=== PATIENT | female | born 1980 | race Caucasian/White ===

== ENCOUNTER 2016-09-27 22:40 | Inpatient (IN) | payer MEDICAID ==
[~2016-09-27] VITALS: Ht 160 cm; Wt 85.7 kg
[~2016-09-27 22:40] MED LIST: ADVAIR DISKUS 11 DSK IH; ALBUTEROL SULFAT NEB; ALBUTEROL SULFAT3 M2 NEB; ASPIRIN81 M2 PO; ATROVENT 00.5 MG/3 M INH; CEFDINIR300 MG PO; CLARITIN10 MG PO; IPRATROPIUM 2.2.5 ML IH; LACTINEX1 TAB.CHEW PO; LEVAQUIN500 MG PO; LEVOFLOXACIN750 MG PO; LEXAPRO20 MG PO; MACROBID100 M1 PO; MEDROL4 M1 PO; MEDROL4 MG PO; PHENERGAN/CODEIN5 ML PO; PREDNISOLO15 MG/5 M3 PO; PREDNISOLON5 MG/5 ML PO; PREDNISONE10 M1 PO; PREDNISONE10 MG PO; PREDNISONE2.5 MG PO; PREDNISONE20 MG PO; PROAIR HFA0.09 MG/Ac IH; PROVENTIL2.5 MG/3 M INH; PULMICORT180 MCG/Ac IH; QVAR HFA M80 MCG/ACT IH; ROBITUSSIN20 MG/1 ML PO; SIMVASTATIN20 M1 PO; SINGULAIR10 MG PO; VENTOLIN H0.09 MG/Ac IH; ZITHROMAX Z PA250 MG PO; ZITHROMAX250 MG PO
--- NOTE | 2016-09-27 22:40 | NUR ---
[facility] TO ER BED 3
[2016-09-27] MEDS ORDERED: ALBUTEROL 0.083% 2.5 MG/3 ML NEBU INH ONE (22:45)
[2016-09-27] MEDS ORDERED: methylPREDNISolone SS 125 MG in WATER STERILE 2 ML IV ONE (22:45)
[2016-09-27] MEDS ORDERED: MAG SULF 2000 MG/WATER PREMIX 50 ML IV ONE (22:45)
[2016-09-27] MEDS ORDERED: NACL 0.9% 1,000 ML IV ONE (22:45)
[2016-09-27 22:48] VITALS: BP 104/55
--- NOTE | 2016-09-27 23:00 | NUR ---
Respiratory Therapist at bedside for respiratory intervention. Patient tolerated .
--- NOTE | 2016-09-27 23:00 | NUR ---
BIBA FOR SOB. HX OF ASTHMA. PAIN 7/10 PT DENIES N/V/D; SKIN IS PINK/WARM/DRY; AAOX4 WITH EVEN AND STEADY GAIT; HR EVEN AND REGULAR; PT DENIES ANY FEVER OR CP AT THIS TIME; PATIENT STATES PAIN OF 7/10 AT THIS TIME; VSS; PATIENT POSITIONED FOR COMFORT; HOB ELEVATED; BEDRAILS UP X2; BED DOWN. ER MD MADE AWARE OF PT STATUS.
[2016-09-27] MEDS ORDERED: AMPICILLIN/SULBACTAM 1.5 GM in NACL 0.9% 50 ML IV ONE (23:15)
[2016-09-27] MEDS ORDERED: AMPICILLIN/SULBACTAM 1.5 GM VIAL ONE (23:28)
[2016-09-28] MEDS ORDERED: IBUPROFEN 600 MG TAB PO ONE (00:05)
--- NOTE | 2016-09-28 00:37 | NUR ---
Respiratory Therapist at bedside for respiratory intervention. Patient tolerated .
[2016-09-28] MEDS: NACL 0.9% 1,000 ML IV SCH ×2 (01:04→07:31)
[2016-09-28] MEDS ORDERED: ACETAMINOPHEN 325 MG TAB PO PRN (01:05)
[2016-09-28] MEDS ORDERED: ZOLPIDEM 5 MG TAB PO PRN (01:05)
[2016-09-28] MEDS ORDERED: ALBUTEROL 0.083% 2.5 MG/3 ML NEBU IH PRN (01:05)
[2016-09-28] MEDS ORDERED: MORPHINE SULFATE 2 MG/ML SYR IVP PRN (01:05)
[2016-09-28] MEDS ORDERED: ONDANSETRON 4 MG/2 ML VIAL IVP PRN (01:05)
[2016-09-28] MEDS ORDERED: methylPREDNISolone SS 125 MG/2 ML VIAL IVP ONE (01:10)
[2016-09-28] MEDS ORDERED: AMPICILLIN/SULBACTAM 1.5 GM VIAL ONE (01:30)
[2016-09-28] MEDS ORDERED: methylPREDNISolone SS 125 MG/2 ML VIAL ONE (01:31)
--- NOTE | 2016-09-28 01:55 | NUR ---
Patient will be admitted to care of DR BENITES. Admited to TELE. Will go to ROOM 105A. Belongings list completed. Report to SAEED OBRIEN.
--- NOTE | 2016-09-28 02:17 | NUR ---
RECEIVED FROM ER PER TREVA AWAKE AND ALERT. WITH SLIGHT COUGHING. DX. OF COPD EXACERBATION. NO PAIN COMPLAINTS. TELEMETRY MONITORING. ABLE TO VERBALIZE NEEDS IN [place] AND A LITTLE OF PASHTO. CALL LIGHT WITH IN REACH AND CARE PLANS FOR THE NIGHT DISCUSSED WITH HER. AMBULATING WELL. ROM X 4. CLEAR SPEECH. AFEBRILE. SKIN INTACT. NO EDEMA . NOTED PT. STILL WITH SLIGHT WHEEZING. ON BREATHING TREATMENTS.
[2016-09-28 02:44] VITALS: BP 116/70
--- NOTE | 2016-09-28 02:49 | NUR ---
SOLUMEDROL IVP AND NS AT 100 ML GIVEN IN ER. PT. AT THIS TIME SLEEPING. AFEBRILE. O2 SAT AT 98 % ON 02 AT 2LPM/NC. CALL LIGHT WITH IN REACH.
[2016-09-28 04:08] VITALS: BP 114/68
--- NOTE | 2016-09-28 05:52 | NUR ---
PT. SLEEPING WELL THIS SHIFT. NO COMPLAINTS DONE. ON BREATHING TREATMENTS. CALL LIGHT WITH IN REACH. TELEMETRY MONITORING.
[2016-09-28] MEDS: ALBUTEROL 0.083% 2.5 MG/3 ML NEBU IH SCH ×3 (07:00→19:19)
--- NOTE | 2016-09-28 07:27 | NUR ---
ENDORSED TO THE NEXT RN FOR CONTINUITY OF CARE. NO SOB. NO RESTLESSNESS NOTED. TELEMETRY MONITORING.
--- NOTE | 2016-09-28 07:28 | NUR ---
PT AWAKE AND ALERT, NO SIGNS OF ACUTE DISTRESS, BREATHING EVEN AND UNLABORED BILATERALLY. ABDOMEN SOFT NON-TENDER WITH BOWEL SOUNDS ACTIVE IN ALL 4 QUADRANTS, BOWEL AND BLADDER CONTINENCE, AMBULATORY WITH BRP, IV PATENT WITH NO REDNESS, SKIN INTACT NO EDEMA, RE-ORIENTED PT TO UNIT AND HOSPITAL PT VERBALIZED UNDERSTANDING. BED IN LOW POSITION WITH BILATERAL HALF SIDE RAILS UP, CALL LIGHT WITHIN REACH.
[2016-09-28 08:00] VITALS: BP 117/70
[2016-09-28] MEDS ORDERED: methylPREDNISolone SS 80 MG in WATER STERILE 1 ML IV SCH (08:00)
[2016-09-28] MEDS: LORATADINE 10 MG TAB PO SCH (08:25)
[2016-09-28] MEDS: FAMOTIDINE 20 MG TAB PO SCH (08:25)
[2016-09-28] MEDS: methylPREDNISolone SS 125 MG/2 ML VIAL IVP SCH ×3 (08:26→23:15)
--- NOTE | 2016-09-28 08:46 | NUR ---
RECEIVED CRITICAL LAB VALUE FROM [facility] LACTIC ACID 2.7.
--- NOTE | 2016-09-28 09:01 | NUR ---
PATIENT HAS BEEN SCREENED AND CATEGORIZED LOW NUTRITION RISK. PATIENT WILL BE SEEN WITHIN 7 DAYS OF ADMISSION. 10/04/[address]
[2016-09-28] MEDS: LACTOBACILLUS RHAMNOSUS GG 1 EACH CAP PO SCH (09:29)
[2016-09-28] MEDS: LEVOFLOXACIN 500 MG/D5W PREMIX 100 ML IV SCH (09:29)
[2016-09-28] MEDS: HYDROcodone/APAP 5/325 MG 1 TAB TAB PO PRN (09:44)
--- NOTE | 2016-09-28 10:56 | NUR ---
NEW ORDER NOT ENDORSED FROM NOC SHIFT
[2016-09-28 11:45] VITALS: BP 131/94
--- NOTE | 2016-09-28 12:31 | NUR ---
RECEIVED CRITICAL LAB VALUE FROM [facility] LACTIC ACID 4.1.
[2016-09-28] MEDS ORDERED: PIPER/TAZO 3.375GM/D5W PREMIX 50 ML IV SCH (13:00)
--- NOTE | 2016-09-28 13:33 | NUR ---
Social Service Note: Per patient's request I call [facility] pharmacy and inquired information about nebulizer, I was informed they currently do not have home nebulizers, ash for nebulizer was over $60 and if ordered today nebulizer would be delivered to their store on Saturday10/01/16, patient would have to olive picker nebulizer from [facility]. I called and spoke with Clarence Ulloa from [employer], he stated cameron ash for nebulizer is $50 and they could deliver it at patient's home. Per Clarence patient could call him and speak with him directly. I met with patient and informed her, she stated she would contact Clarence (Hong Konger speaking) and discuss payment options. I also provided patient with a list of dmes companies.
--- NOTE | 2016-09-28 15:02 | NUR ---
SPOKE WITH DR CALLAWAY REGARDING PT C/O TINGLING IN HANDS AND TIGHTENING IN LOWER STOMACH. PER DR CALLAWAY WILL PUT IN NEW ORDERS FOR ATIVAN, WILL CARRY OUT.
[2016-09-28] MEDS ORDERED: LORazepam 2 MG/ML VIAL IVP PRN ×2 (15:05→19:25)
[2016-09-28 16:00] VITALS: BP 119/79
--- NOTE | 2016-09-28 19:16 | NUR ---
PT AWAKE AND ALERT, NO SIGNS OF ACUTE DISTRESS. GAVE REPORT TO SAEED OBRIEN, UNIX MANAGER NURSE FOR CONTINUITY OF CARE.
--- NOTE | 2016-09-28 19:25 | NUR ---
RECEIVED FROM AM RN AWAKE AND ALERT. WITH SLIGHT COUGHING. DX. OF COPD EXACERBATION. NO PAIN COMPLAINTS. TELEMETRY MONITORING. ABLE TO VERBALIZE NEEDS IN ANGUILLAN AND A LITTLE OF LEBANESE. CALL LIGHT WITH IN REACH AND CARE PLANS FOR THE NIGHT DISCUSSED WITH HER. AMBULATING WELL. ROM X 4. CLEAR SPEECH. AFEBRILE. SKIN INTACT. NO EDEMA . NOTED PT. STILL WITH SLIGHT WHEEZING. ON BREATHING TREATMENTS. PT. WITH VISITORS AT THIS TIME. GOOD AFFECT. SMILING. DENIES PAIN AT THIS TIME.
[2016-09-28 19:33] VITALS: BP 118/76
[2016-09-28] MEDS: MONTELUKAST SODIUM 10 MG TAB PO SCH (20:10)
--- NOTE | 2016-09-28 20:12 | NUR ---
PT. AWAKE AND DRANK MEDICATION WELL WITH OUT ANY COMPLAINTS. TOLERATED WELL. CALL LIGHT WITH IN REACH. RE-ORIENTED TO CALL LIGHT USE. NO SOB AT THIS TIME. STILL ON 02 AT 2LPM/NC. A/O X 4. ROM X 4.
[2016-09-29] VITALS: BP 119/79
--- NOTE | 2016-09-29 01:33 | NUR ---
PT. SLEEPING AT THIS TIME. NO RESTLESSNESS NOTED. TELEMETRY MONITORING. CALL LIGHT WITH IN REACH AT ALL TIMES.
[2016-09-29] MEDS: NACL 0.9% 1,000 ML IV SCH ×2 (02:04→14:34)
[2016-09-29] MEDS: ALBUTEROL 0.083% 2.5 MG/3 ML NEBU IH SCH ×4 (02:04→19:56)
--- NOTE | 2016-09-29 04:49 | NUR ---
PT. SLEEPING WELL THIS SHIFT. NO COMPLAINTS OF SOB. BREATHING TREATMENTS STILL ON GOING ORDERED. TELEMETRY MONITORING. ABLE TO USE CALL LIGHT FOR HELP.
[2016-09-29 05:10] VITALS: BP 114/72
--- NOTE | 2016-09-29 07:28 | NUR ---
ENDORSED TO THE NEXT RN FOR CONTINUITY OF CARE. AWAKE AND ALERT. NO COMPLAINTS DONE. TELEMETRY MONITORING.
--- NOTE | 2016-09-29 07:30 | NUR ---
REPORT RECEIVED FROM IT SOFTWARE DEVELOPER, PT SLEEPING QUIETLY, RESP EVEN UNLABORED ON ROOM AIR IN NAD, AROUSES EASILY BY VOICE, PLAN OF CARE DISCUSSED, NO IMMEDIATE NEEDS NOTED AT THIS TIME, CALL BOWERS WITHIN REACH, SIDE RAILS UP X2, WILL CONTINUE TO MONITOR.
[2016-09-29 08:00] VITALS: BP 113/59
[2016-09-29] MEDS ORDERED: methylPREDNISolone SS 40 MG in WATER STERILE 1 ML IV SCH (08:00)
[2016-09-29] MEDS: methylPREDNISolone SS 40 MG/ML VIAL IVP SCH ×2 (08:02→15:30)
[2016-09-29] MEDS: LACTOBACILLUS RHAMNOSUS GG 1 EACH CAP PO SCH (08:03)
[2016-09-29] MEDS: LORATADINE 10 MG TAB PO SCH (08:03)
[2016-09-29] MEDS: FAMOTIDINE 20 MG TAB PO SCH (08:03)
[2016-09-29] MEDS: LEVOFLOXACIN 500 MG/D5W PREMIX 100 ML IV SCH (08:03)
--- NOTE | 2016-09-29 09:45 | NUR ---
CLEAN CATCH URINE COLLECTED, SENT TO LAB FOR UA. PT SITTING UP IN BED TALKING ON THE PHONE, RESP EVEN UNLABORED ON 1.5L NC O2, CALL BOWERS WITHIN REACH, SIDE RAILS UP, IVF INFUSING, SITE CLEAR, WILL CONTINUE TO MONITOR.
[2016-09-29] MEDS ORDERED: LORazepam 2 MG/ML VIAL IVP PRN (10:50)
[2016-09-29] MEDS ORDERED: MORPHINE SULFATE 2 MG/ML SYR IVP PRN (11:20)
[2016-09-29 12:00] VITALS: BP 124/73
--- NOTE | 2016-09-29 12:00 | NUR ---
PT SITTING UP IN BED TALKING ON THE PHONE IN NAD, RESP EVEN UNLABORED ON 1.5L NC O2, VITALS STABLE DOCUMENTED, PT DENIES ANY IMMEDIATE NEEDS, LUNCH AT BEDSIDE, CALL BOWERS WITHIN REACH, SIDE RAILS UP X2, BED LOCKED IN LOW POSITION, WILL CONTINUE TO MONITOR.
--- NOTE | 2016-09-29 15:41 | NUR ---
PT SITTING UP IN BED TALKING ON THE PHONE IN NAD, RESP EVEN UNLABORED ON 1.5L O2 NC , SCHEDULED SOLUMED GIVEN IVP, IV SITE CLEAR, IVF CONTINUES TO INFUSE, PT REMAINS ON SENIOR CENTER MANAGER, CALL BOWERS WITHIN REACH, SIDE RAILS UP, BED LOCKED IN LOW POSITION, WILL CONTINUE TO MONITOR.
[2016-09-29 16:00] VITALS: BP 124/82
--- NOTE | 2016-09-29 18:02 | NUR ---
PT SITTING UP IN BED TALKING TO VISITOR, PT WITH UNLABORED RESP EVEN, + FAINT END EXP WZ BILAT, DENIES ANY IMMEDIATE NEEDS, PT REMAINS ON MINE PROMOTOR, CALL BOWERS WITHIN REACH, BED LOCKED IN LOW POSITION, SIDE RAIL UP X2, WILL CONTINUE TO MONITOR.
--- NOTE | 2016-09-29 19:26 | NUR ---
REPORT GIVEN TO YARITZA WILSON RN, PT IN STABLE CONDITION.
[2016-09-29 20:00] VITALS: BP 134/78
--- NOTE | 2016-09-29 20:00 | NUR ---
RECEIVED FROM CHARGE NURSE REPORT . PT. ON BREATHING TREATMENT AT THIS TIME. CALL LIGHT WITH IN REACH. O2 SAT AT 97 % WITH 02 AT 2LPM/NC. DX. OF EXACERBATION COPD.IVF SITE TO LAC LEAKING. DISCONTINUED. TIP INTACT. WILL INSERT A NEW LINE. A/O X 4.
[2016-09-29] MEDS: MONTELUKAST SODIUM 10 MG TAB PO SCH (20:28)
--- NOTE | 2016-09-29 21:21 | NUR ---
SLEEPING AT THIS TIME.
[2016-09-29] MEDS: HYDROcodone/APAP 5/325 MG 1 TAB TAB PO PRN (22:29)
--- NOTE | 2016-09-29 22:30 | NUR ---
PT. WITH NEW IVF LINE INSERTED TO LEFT HAND #22 . TOLERATED WELL. GOOD BLOOD RETURN. COMPLAINED OF HEADACHE AND ALMOST READY TO CRY HOLDING ON TO FOREHEAD. REQUESTED FOR PAIN RELIEVER. MEDICATED WITH NORCO P.O.
[2016-09-30] MEDS: methylPREDNISolone SS 40 MG/ML VIAL IVP SCH (00:01)
--- NOTE | 2016-09-30 00:12 | NUR ---
SLEEPING AT THIS TIME. CALL LIGHT WITH IN REACH.
[2016-09-30] MEDS: ALBUTEROL 0.083% 2.5 MG/3 ML NEBU IH SCH ×4 (00:29→18:50)
[2016-09-30 00:47] VITALS: BP 126/72
--- NOTE | 2016-09-30 02:00 | NUR ---
SLEEPING. NO RESTLESSNESS. CALL LIGHT AT BEDSIDE. TELEMETRY MONITORING.
[2016-09-30] MEDS: NACL 0.9% 1,000 ML IV SCH ×2 (03:38→15:04)
[2016-09-30 04:40] VITALS: BP 128/74
--- NOTE | 2016-09-30 05:36 | NUR ---
PT. BEEN SLEEPING WELL THIS SHIFT. NO COMPLAINTS DONE. A/O X4.
--- NOTE | 2016-09-30 07:20 | NUR ---
REPORT RECIEVED FROM UPSCALE SECURITY OFFICER, PT SLEEPING QUIETLY, RESP EVEN UNLABORED ON 1.5L NC O2 IN NAD, AROUSES EASILY BY VOICE, PLAN OF CARE DISCUSSED, PT DENIES PAIN OR OTHER CONCERNS, CALL BOWERS WITHIN REACH, SIDE RAILS UP X2, WILL CONTINUE TO MONITOR.
[2016-09-30 08:00] VITALS: BP 113/53
[2016-09-30] MEDS: FAMOTIDINE 20 MG TAB PO SCH (08:02)
[2016-09-30] MEDS: LEVOFLOXACIN 500 MG/D5W PREMIX 100 ML IV SCH (08:02)
[2016-09-30] MEDS: LACTOBACILLUS RHAMNOSUS GG 1 EACH CAP PO SCH (08:02)
[2016-09-30] MEDS: LORATADINE 10 MG TAB PO SCH (08:03)
--- NOTE | 2016-09-30 10:55 | NUR ---
PT RESTING QUIETLY IN NAD, RESP EVEN UNLABORED, REMAINS ON 1.5L NC, OCCASIONAL COUGHS NOTED, [facility], GANG INVESTIGATOR REMOVED AT THIS TIME. CALL BOWERS WITHIN REACH, SIDE RAILS UP, BED LOCKED IN LOW POSITION, WILL CONTINUE TO MONITOR.
[2016-09-30 11:53] VITALS: BP 131/82
--- NOTE | 2016-09-30 12:30 | NUR ---
PT RESTING QUIETLY TALKING ON THE PHONE, RESP EVEN UNLABORED IN NAD, PT DENIES ANY IMMEDIATE NEEDS, DENIES PAIN OR DISCOMFORT, CALL BOWERS WITHIN REACH, BED LOCKED IN LOW POSITION, SIDE RAILS UPX2, WILL CONTINUE TO MONITOR.
[2016-09-30 16:00] VITALS: BP 118/79
--- NOTE | 2016-09-30 16:03 | NUR ---
FAMILY VISITING, PT TALKING WITH THEM IN NAD, IVF CONTINUE TO INFUSE, SITE CLEAR, PT DENIES ANY IMMEDIATE NEEDS, CALL BOWERS WITHIN REACH, WILL CONTINUE TO MONITOR.
--- NOTE | 2016-09-30 19:05 | NUR ---
PATIENT ON ROOM AIR SAO2-96% HR-78 NO SIGNS OF RESP. DISTRESS NOTED
--- NOTE | 2016-09-30 19:25 | NUR ---
REPORT GIVEN TO AUTO HEADLIGHT MECHANIC, PT IN STABLE CONDITION.
--- NOTE | 2016-09-30 19:30 | NUR ---
RECEIVED REPORT FROM AM NURSE. PT RESTING IN BED. AOX4, ABLE TO VERBALIZE NEEDS. PT DENIES CHEST PAIN OR SOB, NO S/S OF ACUTE DISTRESS. WHEEZING NOTED, O2 SAT 97%, RR 18, NONLABORED, NO S/S OF ACUTE RESPIRATORY DISTRESS. ASKED PT IF SHE WANTED A BREATHING TX, PT REFUSED. WILL CONTINUE TO MONITOR AND ASK AGAIN LATER. IV ACCESS ASYMPTOMATIC, PATENT AND INTACT. IVF INFUSING WELL. DISCUSSED AND REVIEWED PLAN OF CARE WITH PT. PT VERBALIZES UNDERSTANDING. SAFETY MEASURES ENSURED. CALL LIGHT WITHIN REACH. WILL CONTINUE TO MONITOR.
[2016-09-30] MEDS: MONTELUKAST SODIUM 10 MG TAB PO SCH (21:57)
--- NOTE | 2016-09-30 21:58 | NUR ---
DUE MEDICATION ADMINISTERED ORDERED. PT VERBALIZES UNDERSTANDING. PT TOLERATED MED WELL. PT DENIES PAIN OR SOB, PT REFUSED BREATHING TX, O2 SAT 97%, RR 18, CONDITION STABLE. SAFETY MEASURES ENSURED. CALL LIGHT WITHIN REACH. WILL CONTINUE TO MONITOR.
[2016-10-01] VITALS: BP 112/72
--- NOTE | 2016-10-01 | NUR ---
PT SLEEPING. CONDITION STABLE. SAFETY MEASURES ENSURED. CALL LIGHT WITHIN REACH. WILL CONTINUE TO MONITOR.
[2016-10-01] MEDS: ALBUTEROL 0.083% 2.5 MG/3 ML NEBU IH SCH ×3 (00:32→13:00)
--- NOTE | 2016-10-01 03:39 | NUR ---
PT SLEEPING. CONDITION STABLE. SAFETY MEASURES ENSURED. CALL LIGHT WITHIN REACH. WILL CONTINUE TO MONITOR.
[2016-10-01] MEDS: NACL 0.9% 1,000 ML IV SCH (04:08)
--- NOTE | 2016-10-01 07:21 | NUR ---
ENDORSED PLAN OF CARE TO AM NURSE. CONDITION STABLE.
--- NOTE | 2016-10-01 07:22 | NUR ---
REPORT RECEIVED FROM BLOW PIT HELPER, PT AWAKE ALERT, RESP EVEN UNLABORED ON ROOM AIR, + EXP WZ THROUGHOUT, SPEAKS CLEARLY IN NAD, + OCCASIONAL COUGHS, PLAN OF CARE DISCUSSED, PT DENIES PAIN OR DISCOMFORT, UP OUT OF BED AMBULATES TO BATHROOM WITH STEADY GAIT WITHOUT ASSIST, CALL BOWERS WITHIN REACH, SIDE RAILS UP, BED LOCKED IN LOW POSITION, WILL CONTINUE TO MONITOR.
[2016-10-01 08:00] VITALS: BP 121/78
[2016-10-01] MEDS: LACTOBACILLUS RHAMNOSUS GG 1 EACH CAP PO SCH (08:17)
[2016-10-01] MEDS: FAMOTIDINE 20 MG TAB PO SCH (08:17)
[2016-10-01] MEDS: LORATADINE 10 MG TAB PO SCH (08:17)
[2016-10-01] MEDS: LEVOFLOXACIN 500 MG/D5W PREMIX 100 ML IV SCH (08:17)
[2016-10-01] MEDS ORDERED: LEVAQUIN500 M1 PO (12:12)
[2016-10-01] MEDS ORDERED: BD LACTINEX1.4 MG PO (12:12)
[2016-10-01 12:42] VITALS: BP 143/81
--- NOTE | 2016-10-01 13:30 | NUR ---
PT REFUSED BREATHING TX NO SIGNS OF DISTRESS NOTED PT WAS GETTING UP TO GO WALKING
[2016-10-01 14:00] VITALS: BP 133/81
--- NOTE | 2016-10-01 14:00 | NUR ---
DISCHARGE INSTRUCTION GIVEN AND EXPLAINED TO PT VIA PHONE EXCELSIOR MACHINE TENDER #[id number], ALL QUESTIONS ASKED AND ANSWERED, PT VERBALIZED FULL UNDERSTANDING, ALBUTEROL INHALER RX ADDED BY DR CALLAWAY PER PT'S REQUEST, IV DC'D CATH TIP INTACT, BLEEDING CONTROLLED, PT UP AMBULATING WELL WITHOUT PROBLEM, AWAITING FAMILY TO PICK HER UP.
[2016-10-01] MEDS ORDERED: VENTOLIN H0.09 MG/Ac IH (14:16)
--- NOTE | 2016-10-01 14:25 | NUR ---
FAMILY HERE TO TAKE HER HOME, PT ESCORTED OUT IN WHEEL CHAIR. DC HOME NOW.
== END 2016-10-01 14:25 | disposition home or self-care (01) | DRG 140 ==
LOC: MED 22:40 → MTU 09-28 00:51
PROVIDERS: ADMIT Family Medicine; ATTEND Family Medicine
DX: J44.0 Chronic obstructive pulmonary disease with (acute) lower respiratory infection (principal); N17.0 Acute kidney failure with tubular necrosis; J96.90 Respiratory failure, unspecified, unspecified whether with hypoxia or hypercapnia; J45.901 Unspecified asthma with (acute) exacerbation; E44.1 Mild protein-calorie malnutrition; N39.0 Urinary tract infection, site not specified; E83.51 Hypocalcemia; J44.1 Chronic obstructive pulmonary disease with (acute) exacerbation; E78.1 Pure hyperglyceridemia; E66.9 Obesity, unspecified; J20.9 Acute bronchitis, unspecified; J30.9 Allergic rhinitis, unspecified; R73.9 Hyperglycemia, unspecified; I25.10 Atherosclerotic heart disease of native coronary artery without angina pectoris; Z53.29 Procedure and treatment not carried out because of patient's decision for other reasons; T38.0X5A Adverse effect of glucocorticoids and synthetic analogues, initial encounter; Z79.899 Other long term (current) drug therapy; Z79.82 Long term (current) use of aspirin; Z68.33 Body mass index [BMI] 33.0-33.9, adult; Z82.5 Family history of asthma and other chronic lower respiratory diseases; Z80.8 Family history of malignant neoplasm of other organs or systems

== ENCOUNTER 2017-05-10 17:27 | Inpatient (IN) | payer MEDICAID ==
[~2017-05-10] VITALS: Ht 157.5 cm; Wt 86.6 kg
[~2017-05-10 17:27] MED LIST changes: -ADVAIR DISKUS 11 DSK IH; +ALBU-136 IH; +ALBU-71 NEB; +ALBU0.0912 IH; +ALBU0.5S1 NEB; -ALBUTEROL SULFAT NEB; -ALBUTEROL SULFAT3 M2 NEB; -ASPIRIN81 M2 PO; -ATROVENT 00.5 MG/3 M INH; -CEFDINIR300 MG PO; -CLARITIN10 MG PO; -IPRATROPIUM 2.2.5 ML IH; +LACT1.4C PO; -LACTINEX1 TAB.CHEW PO; -LEVAQUIN500 MG PO; +LEVO500T2 PO; -LEVOFLOXACIN750 MG PO; -LEXAPRO20 MG PO; -MACROBID100 M1 PO; -MEDROL4 M1 PO; -MEDROL4 MG PO; +MONT10TA35 PO; -PHENERGAN/CODEIN5 ML PO; -PREDNISOLO15 MG/5 M3 PO; -PREDNISOLON5 MG/5 ML PO; -PREDNISONE10 M1 PO; -PREDNISONE10 MG PO; -PREDNISONE2.5 MG PO; -PREDNISONE20 MG PO; -PROAIR HFA0.09 MG/Ac IH; -PROVENTIL2.5 MG/3 M INH; -PULMICORT180 MCG/Ac IH; -QVAR HFA M80 MCG/ACT IH; -ROBITUSSIN20 MG/1 ML PO; -SIMVASTATIN20 M1 PO; -SINGULAIR10 MG PO; -VENTOLIN H0.09 MG/Ac IH; -ZITHROMAX Z PA250 MG PO; -ZITHROMAX250 MG PO
--- NOTE | 2017-05-10 17:27 | NUR ---
Patient BIBA to bed 1 at this time.
[2017-05-10] MEDS ORDERED: DEXAMETHASONE 10 MG/ML VIAL IVP ONE (17:30)
[2017-05-10 17:35] VITALS: BP 147/95
[2017-05-10] MEDS ORDERED: ALBUTEROL SULFATE/IPRATROPIU 3 ML SOL IH ONE (17:35)
[2017-05-10] MEDS ORDERED: MAG SULF 2000 MG/WATER PREMIX 50 ML IV ONE ×2 (17:35→17:46)
[2017-05-10] MEDS ORDERED: DEXAMETHASONE 4 MG/ML VIAL ONE ×2 (17:46→17:51)
[2017-05-10] MEDS ORDERED: methylPREDNISolone SS 125 MG/2 ML VIAL ONE (17:46)
[2017-05-10 17:49] LABS: HEMATOCRIT 45.2 % (36-48); HEMOGLOBIN 14.8 g/dL (12.0-16.0); MEAN CORPUSCULAR HEMOGLOBIN 25 pg (27-31); MEAN CORPUSCULAR HGB CONC 33 g/dL (33-37); MEAN CORPUSCULAR VOLUME 76 fL (80-94); PLATELET COUNT (AUTO) 360 K/uL (140-450); RED BLOOD CELL COUNT(AUTO) 5.93 MIL/uL (4.20-5.40); RED CELL DISTRIBUTION WIDTH 14.4 % (11.6-13.7); WHITE BLOOD COUNT (AUTO) 21.1 K/uL (4.8-10.8)
[2017-05-10 17:51] VITALS: BP 170/100
--- NOTE | 2017-05-10 17:54 | NUR ---
RECIVED PT FROM EMT ON THEIR BIPAP CHANGED PT TO OUR BIPAP [place] V60 1144 ON SETTINGS CHARTED BREATH SOUNDS PRESENT BILAT WHEEZES PT SEEMS TO BE BERNIE OK AT THIS TIME
--- NOTE | 2017-05-10 18:11 | NUR ---
XRAY AT BEDSIDE.
[2017-05-10 18:16] LABS: ANION GAP 11.6 (8-16); CARBON DIOXIDE 28.5 mmol/L (21-32); CREATININE 0.8 mg/dL (0.6-1.3); POTASSIUM 4.1 mmol/L (3.5-5.1)
[2017-05-10 18:17] LABS: EOSINOPHILS % (MANUAL) 8 % (0-4); LYMPHOCYTES % (MANUAL) 28 % (20-46); MONOCYTES % (MANUAL) 6 % (5-12)
[2017-05-10 18:25] VITALS: BP 156/109
[2017-05-10 18:33] LABS: ALBUMIN 3.6 g/dL (3.4-5.0); MAGNESIUM 1.9 mg/dL (1.8-2.4); THYROID STIMULATING HORMONE 1.69 uIU/mL (0.34-3.74); TOTAL BILIRUBIN 0.5 mg/dL (0.0-1.0)
--- NOTE | 2017-05-10 18:35 | NUR ---
ekg done reviewed by orin
--- NOTE | 2017-05-10 18:49 | NUR ---
PT SWABBED FOR FLU. ABG COLLECTED BY RT.
[2017-05-10] MEDS ORDERED: LEVOFLOXACIN 750 MG/D5W PREMIX 150 ML IV SCH (18:55)
--- NOTE | 2017-05-10 19:04 | NUR ---
LAB AT BEDSIDE.
--- NOTE | 2017-05-10 19:32 | NUR ---
Pt found in bed on BiPap tolerating it well. Pt resting in semi fower's. Report recieved from Teto TIPTON. Pt is pending admission.
--- NOTE | 2017-05-10 19:54 | NUR ---
Pt taken off the bipap to provide her was sip of water.
[2017-05-10] MEDS ORDERED: NACL 0.9% 1,000 ML IV ONE (20:00)
--- NOTE | 2017-05-10 20:17 | NUR ---
IV to right forearm removed. Pt c/o severe pain with flushing IV. IV removed, catheter intact and site benign. Applied folded 4x4 gauze and tape to stop bleeding.
[2017-05-10] MEDS ORDERED: KETOROLAC 30 MG/ML VIAL IVP ONE (20:25)
--- NOTE | 2017-05-10 21:05 | NUR ---
PT TRANSFERRED TO 112-A WITH NO INCIDENCE WITH LASHAUN TIPTON
[2017-05-10 21:10] VITALS: BP 146/93
--- NOTE | 2017-05-10 21:10 | NUR ---
RECEIVED PT FROM ER VIA MATHEW. PT IN STABLE CONDITION. NO S/S OF DISTRESS. PT AAOX4, IV TO THE L HAND 20 G PATENT AND INTACT. SKIN IN TACT. PT BEING PUT ON BI-PAP DUE TO SOB, PT SOB AFTER AMBULATING TO THE BATHROOM. INITIAL ASSESSMENT COMPLETED. PLAN OF CARE DISCUSSED WITH PT, PT VERBALIZED UNDERSTANDING. ALL SAFETY PRECAUTIONS MET, CALL LIGHT WITHIN REACH, WILL CONTINUE TO MONITOR
[2017-05-10] MEDS ORDERED: NON-FORMULARY ITEM (Albuterol Sulfate Hfa* (Proair Hfa*) 2 PUFF) IH SCH (22:20)
[2017-05-10] MEDS ORDERED: ALBUTEROL HFA MDI 90 MCG/ACTUATION 8 GM INH PRN (22:20)
[2017-05-10] MEDS: DEXT 5% /NACL 0.9% 1,000 ML IV SCH (22:20)
[2017-05-10] MEDS ORDERED: ONDANSETRON 4 MG/2 ML VIAL IVP PRN (22:20)
[2017-05-10] MEDS ORDERED: ACETAMINOPHEN 325 MG TAB PO PRN (22:20)
[2017-05-10] MEDS ORDERED: IPRATROPIUM 0.02% 0.5 MG/2.5 ML NEBU INH PRN (22:20)
[2017-05-10] MEDS ORDERED: HYDROcodone/APAP 5/325 MG 1 TAB TAB PO PRN (22:20)
[2017-05-10] MEDS ORDERED: ALBUTEROL SULFATE/IPRATROPIU 3 ML SOL IH PRN (23:10)
[2017-05-10] MEDS ORDERED: ALBUTEROL SULFATE/IPRATROPIU 3 ML SOL IH SCH (23:10)
[2017-05-10 23:25] LABS: APPEARANCE,URINE CLOUDY (CLEAR); BILIRUBIN,URINE NEGATIVE (NEGATIVE); BLOOD, URINE 3+ (NEGATIVE); LEUKOCYTE ESTERASE ,URINE NEGATIVE (NEGATIVE); NITRITE, URINE NEGATIVE (NEGATIVE); PH,URINE 5.5 (5.0-9.0); UGLUCOSE TRACE (NEGATIVE)
[2017-05-10 23:38] LABS: COLOR,URINE SLIGHT BLOODY (YELLOW)
[2017-05-10 23:39] LABS: RBC,URINE TOO NUMEROUS TO COUN /HPF (0-5); WBC,URINE 0-5 (RARE) /HPF (0-5)
[2017-05-11] VITALS: BP 144/72
[2017-05-11] MEDS ORDERED: ALBUTEROL SULFATE NEB SCH
[2017-05-11] MEDS: ALBUTEROL SULFATE/IPRATROPIU 3 ML SOL IH SCH ×6 (03:22→23:45)
[2017-05-11 04:00] VITALS: BP 126/62
--- NOTE | 2017-05-11 06:35 | NUR ---
REC'D PT ON [facility] V60 BIPAP SETTINGS 10/5 RR 10 FIO2 28% ALARMS ON AND FUNCTIONING PROPERLY, AMBU BAG AT SIDE OF BIPAP AND BIPAP IS PLUGGED INTO RED OUTLET, I\L TX GIVEN WITH DUONEB 3ML WITH NO ADVERSE REACTION POST TX B\S ARE DIMINISHED BILATERALLY, AND PT IS WEARING MED FACE MASK AND SKIN INTEGRITY IS INTACT, PT SLEEPING
--- NOTE | 2017-05-11 07:30 | NUR ---
RECEIVED PT FROM BIOGEOGRAPHER RN. PT IN STABLE CONDITION. NO S/S OF DISTRESS. PT AAOX4, IV TO THE L HAND 20 G PATENT AND INTACT. SKIN INTACT. PT ON BI-PAP DUE TO SOB, PLAN OF CARE DISCUSSED WITH PT, PT VERBALIZED UNDERSTANDING. ALL SAFETY PRECAUTIONS MET, CALL LIGHT WITHIN REACH, WILL CONTINUE TO MONITOR
--- NOTE | 2017-05-11 07:30 | NUR ---
RECEIVED HANDOFF REPORT FROM CLINICAL PHARMACY SPECIALIST RN. PATIENT AA&OX4. PT DENIES PAIN. PT IS ON 2 L BIPAP. IV SITE NOTED TO THE RIGHT HAND, PATENT AND INTACT. NO SIGNS OR SYMPTOMS OF ACUTE DISTRESS NOTED. CALL LIGHT WITHIN REACH. WILL CONTINUE TO MONITOR.
--- NOTE | 2017-05-11 07:35 | NUR ---
REPORT GIVEN TO LAURA TIPTON FOR CONTINUITY OF CARE, PT IN STABLE CONDITION. NO S/S OF DISTRESS NOTED
[2017-05-11 08:00] VITALS: BP 120/74
[2017-05-11] MEDS ORDERED: ACIDOPHILUS PO SCH (08:00)
[2017-05-11] MEDS ORDERED: BULGARICUS PO SCH (08:00)
[2017-05-11] MEDS: DEXT 5% /NACL 0.9% 1,000 ML IV SCH ×2 (08:20→18:20)
[2017-05-11] MEDS ORDERED: LACTOBACILLUS RHAMNOSUS GG 1 EACH CAP PO SCH (09:00)
--- NOTE | 2017-05-11 09:07 | NUR ---
pt wants bipap left on 2l n/c on at bedside
[2017-05-11] MEDS: MONTELUKAST SODIUM 10 MG TAB PO SCH (09:30)
[2017-05-11] MEDS: methylPREDNISolone SS 40 MG/ML VIAL IVP SCH ×2 (09:30→20:29)
--- NOTE | 2017-05-11 09:41 | NUR ---
PATIENT HAS BEEN SCREENED AND CATEGORIZED LOW NUTRITION RISK. PATIENT WILL BE SEEN WITHIN 7 DAYS OF ADMISSION. 05/17/[address]
--- NOTE | 2017-05-11 09:45 | NUR ---
bipap check, no signs of distress noted at this time
--- NOTE | 2017-05-11 10:55 | NUR ---
BIPAP CHECK, PT SLEEPING WITH NO SIGNS OF DISTRESS NOTED I\L TX GIVEN WITH DUONEB 3ML WITH NO ADVERSE REACTION POST TX
[2017-05-11 12:00] VITALS: BP 124/74
[2017-05-11] MEDS: LACTOBACILLUS RHAMNOSUS GG 1 EACH CAP PO SCH ×2 (12:58→17:44)
--- NOTE | 2017-05-11 13:21 | NUR ---
PT OFF BIPAP TO EAT
--- NOTE | 2017-05-11 13:50 | NUR ---
PUT PT ON 2 L NC. PT O2 SAT IS 98%. NO S/S OF SOB.
--- NOTE | 2017-05-11 15:03 | NUR ---
PAGED DR. STEPHENS WHO IS COVERING DR COLEMAN FOR ID CONSULT.
[2017-05-11 16:00] VITALS: BP 134/73
--- NOTE | 2017-05-11 19:22 | NUR ---
RECEIVED HANDOFF REPORT FROM AM RN. PATIENT A&OX4. PATIENT DENIES PAIN. PATIENT DENIES SOB. PATIENT HAS 2L O2 NASAL CANNULA IN PLACE. IV SITE PATENT AND INTACT. NO SIGNS OR SYMPTOMS OF ACUTE DISTRESS NOTED. CALL LIGHT WITHIN REACH. WILL CONTINUE TO MONITOR.
--- NOTE | 2017-05-11 19:30 | NUR ---
ENDORSED PT TO VOLTAGE REGULATOR ASSEMBLER RN. PT IN STABLE CONDITION.
--- NOTE | 2017-05-11 19:55 | NUR ---
PATIENT OUT OF ROOM AT THIS TIME PETROLEUM PRODUCTION ENGINEER TO ATTEMPT HHN THERAPY AT A LATER TIME
[2017-05-11 20:00] VITALS: BP 109/69
--- NOTE | 2017-05-11 20:01 | NUR ---
[facility] V60 BIPAP TO MASK AT BEDSIDE
[2017-05-11] MEDS: LEVOFLOXACIN 500 MG/D5W PREMIX 100 ML IV SCH (20:28)
--- NOTE | 2017-05-11 20:30 | NUR ---
PM MEDS GIVEN WITH EDUCATION. PATIENT VERBALIZED UNDERSTANDING. NO SIGNS OR SYMPTOMS OF ACUTE DISTRESS NOTED. CALL LIGHT WITHIN REACH. WILL CONTINUE TO MONITOR.
[2017-05-11] MEDS ORDERED: VANCOMYCIN PER PHARMACY MC PRN ×2 (23:55)
[2017-05-11] MEDS ORDERED: VANCOMYCIN 1GM/DEXT 5% PREMIX 200 ML IV SCH (23:55)
[2017-05-12] VITALS: BP 115/71
--- NOTE | 2017-05-12 00:10 | NUR ---
2350 PLACED PT ON BIPAP. IPAP10 EPAP 5 RR10 FIO2 28%. PT HAS A VERY STRONG COUGH. HHNTX GIVEN
[2017-05-12] MEDS ORDERED: VANCOMYCIN 1,000 MG VIAL ONE (00:45)
[2017-05-12] MEDS: ALBUTEROL SULFATE/IPRATROPIU 3 ML SOL IH SCH ×6 (03:00→23:26)
--- NOTE | 2017-05-12 03:01 | NUR ---
LOC ASLEEP NO APPARENT SOB NOTED HHN THERPY NOT GIVEN AT THIS TIME SATURATION 97% ON 2 LPM VIA NC HR 86 RR 16 CONSTRUCTION PROJECT MANAGER TO MONITOR
[2017-05-12 04:00] VITALS: BP 108/67
[2017-05-12] MEDS: DEXT 5% /NACL 0.9% 1,000 ML IV SCH ×2 (04:20→14:20)
--- NOTE | 2017-05-12 07:17 | NUR ---
ENDORSED PLAN OF CARE TO AM RN. PATIENT IN STABLE CONDITION.
--- NOTE | 2017-05-12 07:30 | NUR ---
RECEIVED PT FROM PRICING/SIGNAGE TEAM MEMBER RN. PT IN STABLE CONDITION. NO S/S OF DISTRESS. PT AAOX4, IV TO THE L HAND 20 G PATENT AND INTACT. SKIN INTACT. PT ON 2L O2 NC. ACCORDING TO PT, SHE DID NOT USE BI PAP LAST NIGHT, SHE JUST HAVE 2L O2 NC. PLAN OF CARE DISCUSSED WITH PT, PT VERBALIZED UNDERSTANDING. ALL SAFETY PRECAUTIONS MET, CALL LIGHT WITHIN REACH, WILL CONTINUE TO MONITOR
[2017-05-12 07:47] LABS: HEMATOCRIT 40.9 % (36-48); MEAN CORPUSCULAR HEMOGLOBIN 25 pg (27-31); MEAN CORPUSCULAR HGB CONC 32 g/dL (33-37); MEAN CORPUSCULAR VOLUME 78 fL (80-94); PLATELET COUNT (AUTO) 165 K/uL (140-450); RED BLOOD CELL COUNT(AUTO) 5.24 MIL/uL (4.20-5.40); RED CELL DISTRIBUTION WIDTH 14.9 % (11.6-13.7)
[2017-05-12 08:00] VITALS: BP 118/67
[2017-05-12 08:10] LABS: ANION GAP 11.5 (8-16); CARBON DIOXIDE 25.9 mmol/L (21-32); CREATININE 0.6 mg/dL (0.6-1.3); POTASSIUM 4.4 mmol/L (3.5-5.1)
[2017-05-12 08:28] LABS: BASOPHILS % (MANUAL) 0 % (0-2); EOSINOPHILS % (MANUAL) 0 % (0-4); LYMPHOCYTES % (MANUAL) 8 % (20-46); MONOCYTES % (MANUAL) 6 % (5-12)
[2017-05-12] MEDS: methylPREDNISolone SS 40 MG/ML VIAL IVP SCH ×2 (09:03→20:09)
[2017-05-12] MEDS: LACTOBACILLUS RHAMNOSUS GG 1 EACH CAP PO SCH ×3 (09:03→17:07)
[2017-05-12] MEDS: MONTELUKAST SODIUM 10 MG TAB PO SCH (09:03)
--- NOTE | 2017-05-12 09:30 | NUR ---
LAST SPUTUM SAMPLE WAS REJECTED. WILL RECOLLECT.
[2017-05-12] MEDS: VANCOMYCIN 1,250 MG in DEXTROSE 5% 250 ML IV SCH ×2 (10:12→22:35)
[2017-05-12 12:00] VITALS: BP 117/67
--- NOTE | 2017-05-12 14:00 | NUR ---
URINE SAMPLE SENT TO LAB.
[2017-05-12 16:00] VITALS: BP 118/56
--- NOTE | 2017-05-12 17:00 | NUR ---
SPUTUM SAMPLE SENT TO LAB.
--- NOTE | 2017-05-12 17:20 | NUR ---
PT C/O OF COUGH TOO MUCH. CALLED DR KAREN WHITMORE GUAIFENESIN DM 10ML Q4H PRN.
[2017-05-12] MEDS: guaiFENesin DM 200/20 MG-10 ML 10 ML UDC PO PRN ×2 (18:30→22:35)
--- NOTE | 2017-05-12 19:33 | NUR ---
ENDORSED PT TO TERMINAL PRESS OPERATOR NURSE. PATIENT IS IN STABLE CONDITION
--- NOTE | 2017-05-12 19:34 | NUR ---
RECEIVED HANDOFF REPORT FROM AM RN. PATIENT A&OX4. PATIENT DENIES PAIN. PATIENT IV SITE PATENT AND INTACT. NASAL CANNULA 2L O2 PATENT AND INTACT. PATIENT RESTING IN BED. NO SIGNS OR SYMPTOMS OF ACUTE DISTRESS NOTED. SAFETY MEASURES ENSURED. CALL LIGHT WITHIN REACH. WILL CONTINUE TO MONITOR.
[2017-05-12 20:00] VITALS: BP 110/70
[2017-05-12] MEDS: LEVOFLOXACIN 500 MG/D5W PREMIX 100 ML IV SCH (20:08)
--- NOTE | 2017-05-12 20:22 | NUR ---
PM MEDS GIVEN WITH EDUCATION. PATIENT VERBALIZED UNDERSTANDING. NO SIGNS OR SYMPTOMS OF ACUTE DISTRESS NOTED. CALL LIGHT WITHIN REACH. WILL CONTINUE TO MONITOR.
--- NOTE | 2017-05-12 23:25 | NUR ---
RT IN TO SEE PATIENT
--- NOTE | 2017-05-12 23:45 | NUR ---
RT PUT PATIENT ON BIPAP DUE TO COUGH. PATIENT TOLERATED WELL. EPAP 5 RATE 10 FIO2 28%. NO SIGNS OR SYMPTOMS OF ACUTE DISTRESS NOTED. CALL LIGHT WITHIN REACH. WILL CONTINUE TO MONITOR.
[2017-05-13] VITALS: BP 139/82
[2017-05-13] MEDS: DEXT 5% /NACL 0.9% 1,000 ML IV SCH ×3 (00:20→10:20)
--- NOTE | 2017-05-13 00:47 | NUR ---
PATIENT RESTING IN BED. IV SITE IS INFILTRATED. WILL START NEW IV. IV TAKEN OUT. TIP INTACT. PATIENT TOLERATED WELL. PATIENT DENIES PAIN. NO SIGNS OR SYMPTOMS OF ACUTE DISTRESS NOTED. CALL LIGHT WITHIN REACH. WILL CONTINUE TO MONITOR.
[2017-05-13] MEDS: ALBUTEROL SULFATE/IPRATROPIU 3 ML SOL IH SCH ×6 (03:49→22:12)
[2017-05-13 04:00] VITALS: BP 116/69
--- NOTE | 2017-05-13 04:49 | NUR ---
RT IN TO SEE PATIENT
[2017-05-13 06:53] LABS: HEMATOCRIT 37.2 % (36-48); HEMOGLOBIN 12.4 g/dL (12.0-16.0); MEAN CORPUSCULAR HEMOGLOBIN 26 pg (27-31); MEAN CORPUSCULAR HGB CONC 33 g/dL (33-37); MEAN CORPUSCULAR VOLUME 78 fL (80-94); PLATELET COUNT (AUTO) 258 K/uL (140-450); RED BLOOD CELL COUNT(AUTO) 4.78 MIL/uL (4.20-5.40); RED CELL DISTRIBUTION WIDTH 14.7 % (11.6-13.7); WHITE BLOOD COUNT (AUTO) 14.5 K/uL (4.8-10.8)
--- NOTE | 2017-05-13 06:59 | NUR ---
RCV'D PT ON BIPAP WITH CURRENT SETTINGS. PT WANTS TO KEEP BIPAP ON OF NOW. BIPAP IS CONNECTED TO RED OUTLET. ALARMS ARE AUDIBLE. HHN TX OF MONIQUE GIVEN. SPO2 99% HR 62 WHEEZING BS. WILL CONTINUE TO MONITOR.
--- NOTE | 2017-05-13 07:25 | NUR ---
ENDORSED PLAN OF CARE TO AM RN. PATIENT IN STABLE CONDITION.
--- NOTE | 2017-05-13 07:26 | NUR ---
RECEIVED REPORT FROM SANDWICH BOARD CARRIER RN AT BEDSIDE FOR CONTINUITY OF CARE. PATIENT A&OX4. PATIENT DENIES PAIN. IV ON R HAND #24G WITH D5 NS @ 100ML/HR, ASYMPTOMATIC, PATENT, AND INTACT. PATIENT ON BIPAP. PATIENT RESTING IN BED. VITAL SIGNS WITHIN NORMAL LIMITS. NO SIGNS OR SYMPTOMS OF ACUTE DISTRESS NOTED. SAFETY MEASURES ENSURED. CALL LIGHT WITHIN REACH. WILL CONTINUE TO MONITOR.
[2017-05-13 07:37] LABS: ANION GAP 13.2 (8-16); CARBON DIOXIDE 24.9 mmol/L (21-32); CREATININE 0.6 mg/dL (0.6-1.3); POTASSIUM 4.1 mmol/L (3.5-5.1)
[2017-05-13 08:00] VITALS: BP 115/72
[2017-05-13 08:03] LABS: LYMPHOCYTES % (MANUAL) 4 % (20-46); MONOCYTES % (MANUAL) 1 % (5-12)
[2017-05-13] MEDS: LACTOBACILLUS RHAMNOSUS GG 1 EACH CAP PO SCH ×3 (08:14→17:01)
[2017-05-13] MEDS: MONTELUKAST SODIUM 10 MG TAB PO SCH (08:14)
[2017-05-13] MEDS: methylPREDNISolone SS 40 MG/ML VIAL IVP SCH ×2 (08:21→21:23)
--- NOTE | 2017-05-13 09:59 | NUR ---
CALLED LAB ABOUT VANCO TROUGH THAT WAS SUPPOSED TO BE DONE AT 0900 FOR THE VANCOMYCIN AT 1000. PER LAB, IT WAS NOT DRAWN OF YET. ONLY 1 LEVEL VIAL SETTER ON THE FLOOR. WILL HOLD THE VANCO UNTIL TROUGH IS RESULTED.
--- NOTE | 2017-05-13 10:03 | NUR ---
PT OFF BIPAP
[2017-05-13] MEDS: VANCOMYCIN 1,250 MG in DEXTROSE 5% 250 ML IV SCH ×2 (11:50→22:48)
--- NOTE | 2017-05-13 11:50 | NUR ---
SPOKE TO PHARMACISTBRITTNEY, ABOUT LACK OF VANCO TROUGH THE REASON WHY VANCO DOSE IS BEING WITHHELD. VANCO TROUGH REORDERED TO BE AT 21:30 TONIGHT 05/13/17 DUE TO SHORTAGE OF PHLEBOTOMISTS ON THE FLOOR CURRENTLY. VANCO DOSE TO BE GIVEN, VERIFIED BY PHARMACISTBRITTNEY. PATIENT RESTING COMFORTABLY, NO SIGNS OF DISTRESS OR SOB. SAFETY PRECAUTIONS IN PLACE, WILL CONTINUE TO MONITOR PATIENT.
[2017-05-13 12:00] VITALS: BP 123/77
--- NOTE | 2017-05-13 12:49 | NUR ---
PATIENT IS SLEEPING, NO SIGNS OF DISTRESS OR SOB NOTED. SAFETY PRECAUTIONS IN PLACE, CALL LIGHT WITHIN REACH. WILL CONTINUE TO MONITOR PATIENT.
[2017-05-13] MEDS: guaiFENesin DM 200/20 MG-10 ML 10 ML UDC PO PRN (14:11)
--- NOTE | 2017-05-13 14:15 | NUR ---
PT AMBULATED TO BATHROOM WITH STEADY GAIT. PT C/O COUGH, ROBITUSSIN PRN GIVEN. NO SIGNS OF DISTRESS NOTED. PATIENT DENIES PAIN. SAFETY PRECAUTIONS IN PLACE, CALL LIGHT WITHIN REACH, WILL CONTINUE TO MONITOR PATIENT.
--- NOTE | 2017-05-13 14:50 | NUR ---
PT REFUSED HHN TX. PT STATED SHE FEELS BETTER. BIPAP STANDBY AT BEDSIDE. WILL CONTINUE TO MONITOR.
[2017-05-13 16:00] VITALS: BP 115/77
--- NOTE | 2017-05-13 18:15 | NUR ---
PATIENT SITTING IN BED, EATING DINNER. NO S/SX OF DISTRESS NOTED. PATIENT DENIES PAIN. SAFETY PRECAUTIONS IN PLACE, CALL LIGHT WITHIN REACH. WILL CONTINUE TO MONITOR PATIENT.
--- NOTE | 2017-05-13 19:17 | NUR ---
ENDORSED PT TO THE SUPERVISOR SEWING ROOM NURSE AT BEDSIDE FOR CONTINUITY OF CARE. PT IN STABLE CONDITION.
--- NOTE | 2017-05-13 19:18 | NUR ---
RECD. RESTING IN BED, AWAKE, A/OX4, RESPIRATION EVEN AND UNLABORED. WITH BILATERAL WHEEZES ON LUNG AUSCULTATION, 02 SAT- 95-97% ON ROOM AIR. IV OF D5 NS AT 100 ML/HR INFUSING, RIGHT HAND G24. PLAN OF CARE FOR THE SHIFT DISCUSSED. VERBALIZED UNDERSTANDING. DENIES PAIN 0/10.
--- NOTE | 2017-05-13 19:30 | NUR ---
Patient's Plan of Care was discussed and reviewed with BUNCH MAKER: CEASAR
[2017-05-13 20:00] VITALS: BP 118/72
--- NOTE | 2017-05-13 21:00 | NUR ---
STATED THAT SHE DOES NOT LIKE THE BIPAP. 02 SAT - 95%, WILL CONTINUE TO MONITOR.
[2017-05-13] MEDS: LEVOFLOXACIN 500 MG/D5W PREMIX 100 ML IV SCH (21:23)
[2017-05-14] VITALS: BP 137/79
[2017-05-14] MEDS: guaiFENesin DM 200/20 MG-10 ML 10 ML UDC PO PRN ×2 (01:22→09:41)
--- NOTE | 2017-05-14 01:23 | NUR ---
WITH COUGHING NOTED, MEDICATED WITH ROBITUSSIN ORDERED.
[2017-05-14] MEDS: DEXT 5% /NACL 0.9% 1,000 ML IV SCH ×2 (01:29→11:29)
--- NOTE | 2017-05-14 02:23 | NUR ---
NO COUGHING NOTED, SLEEPING COMFORTABLY IN BED.
[2017-05-14] MEDS: ALBUTEROL SULFATE/IPRATROPIU 3 ML SOL IH SCH ×3 (02:25→15:19)
--- NOTE | 2017-05-14 02:35 | NUR ---
DR. STEPHENS CAME AND CHECKED PATIENT, NO NEW ORDER MADE.
[2017-05-14 04:00] VITALS: BP 128/76
--- NOTE | 2017-05-14 07:30 | NUR ---
RECEIVED PT ON BED AAOX4. NO SOB NOTED. NO C/O PAIN AT THIS TIME. IV TO RT HAND PATENT AND INTACT. CHEST DIMINISHED AIR ENTRY TO THE BASES, WHEEZING HEARD BILATERALLY. ON XYGEN AT 2LPM VIA NASAL CANNULA WITH O2 SATS AT 95%. ABDOMEN SOFT, BOWEL SOUNDS PRESENT. INSTRUCTED PT TO CALL FOR ASSISTANCE, CALL LIGHT WITHIN REACH, PT VERBALIZED UNDERSTANDING.
[2017-05-14 08:00] VITALS: BP 110/72
[2017-05-14] MEDS: LACTOBACILLUS RHAMNOSUS GG 1 EACH CAP PO SCH (08:00)
[2017-05-14] MEDS: MONTELUKAST SODIUM 10 MG TAB PO SCH (09:41)
[2017-05-14] MEDS: methylPREDNISolone SS 40 MG/ML VIAL IVP SCH (09:41)
[2017-05-14] MEDS ORDERED: VANCOMYCIN 1GM/DEXT 5% PREMIX 200 ML IV SCH (10:00)
--- NOTE | 2017-05-14 12:15 | NUR ---
PT EATING ALMOST 100% OF BREAKFAST AND LUNCH SERVED. FOOD TOLERATED WELL.
[2017-05-14] MEDS ORDERED: ALBU-71 NEB (12:45)
[2017-05-14] MEDS ORDERED: LEVO500T2 PO (12:45)
[2017-05-14] MEDS ORDERED: DEXT5SYR3 PO (12:45)
--- NOTE | 2017-05-14 13:00 | NUR ---
PT SEEN BY DR. URENA WITH NEW ORDERS. PT NOTIFIED WITH THE D/C ORDER. STATED HER ANALYTICAL CHEMIST WILL BE AFTER 4 PM.
[2017-05-14 14:00] VITALS: BP 111/68
--- NOTE | 2017-05-14 16:15 | NUR ---
DISCHARGE INSTRUCTED GIVEN TO PT WHICH VERBALIZED FULL UNDERSTANDING OF THE INSTRUCTIONS GIVEN AND THE NEED TO FOLLOW UP WITH DR. URENA IN 7 DAYS. PT MADE AWARE THAT PRESCRIPTIONS WERE SENT TO PT'S PREFERRED PHARMACY IN [facility].
--- NOTE | 2017-05-14 16:20 | NUR ---
ARM BANDS AND IV REMOVED, CANNULA TIP INTACT. PT SIGNED D/C PAPER.
--- NOTE | 2017-05-14 16:40 | NUR ---
PT WHEELED IN STABLE CONDITION TO THE FRONT LOBBY. NO SOB NOTED. NO COMPLAINTS MADE. PT IS D/C HOME WITH FAMILY.
--- NOTE | 2017-05-14 17:15 | NUR ---
UPON BREAKING PT'S CHART, FOUND DR. URENA'S PRESCRIPTIONS . CHECKED WITH PT'S MED RECONCILIATION, PREDNISONE WAS NOT TRANSCRIBED TO [facility]. CALLED PT AND SPOKE TO HER SON TOMASZ WHO SPEAKS BANGLAD[place]HI WELL THAT HIS MOM WILL SAFETY TEACHER THE PRESCRIPTIONS TOMORROW MORNING HER IN THE CHARGE NURSE COUNTER. EXPLAINED TO PT'S SON THE NECESSITY TO GET THE PRESCRIPTIONS, VERBALIZED UNDERSTANDING. ENDORSED PRESCRIPTIONS TO GIL[employer] DEPARTMENT MANAGER NURSE. Addendum: 05/14/17 at 1732 by Shalini Garay RN PT'S HOME PHONE # [phone]
--- NOTE | 2017-05-14 18:30 | NUR ---
PT PICKED UP THE PRESCRIPTIONS LEFT IN THE HOSPITAL, INSTRUCTED TO GO TO PREFERRED PHARMACY TO HAND IT DOWN AND GET THE REFILLS. PT VERBALIZED UNDERSTANDING.
== END 2017-05-14 16:40 | disposition home or self-care (01) | DRG 720 ==
LOC: MED 17:27 → MTU 20:27
PROVIDERS: ADMIT Preventive Medicine Preventive Medicine/Occupational Environmental Medicine; ATTEND Preventive Medicine Preventive Medicine/Occupational Environmental Medicine
PROC: 5A09457 Assistance with Respiratory Ventilation, 24-96 Consecutive Hours, Continuous Positive Airway Pressure (ICD-10-PCS; 2017-05-10)
PROC: 5A09357 Assistance with Respiratory Ventilation, Less than 24 Consecutive Hours, Continuous Positive Airway Pressure (ICD-10-PCS; principal; 2017-05-13)
DX: A41.9 Sepsis, unspecified organism (principal); J96.00 Acute respiratory failure, unspecified whether with hypoxia or hypercapnia; J20.9 Acute bronchitis, unspecified; J45.902 Unspecified asthma with status asthmaticus; E83.52 Hypercalcemia; R73.9 Hyperglycemia, unspecified; R31.9 Hematuria, unspecified; T38.0X5A Adverse effect of glucocorticoids and synthetic analogues, initial encounter; Y92.89 Other specified places as the place of occurrence of the external cause
CPT/HCPCS: 36415; 36600; 71045; 80048; 80053; 80202; 81001; 82803; 83605; 83735; 84443; 84484; 85025; 85651; 86140; 87040; 87070; 87081; 87086; 87205; 87804; 94640; 94660; 96372; 96374; 96375; 99291; J0171; J1100; J1885; J1956; J2920; J2930; J3370; J3475; J7030; J7042; J7060; J7620; Q0092

== ENCOUNTER 2017-10-22 22:16 | Emergency (ER) | payer MEDICAID ==
[~2017-10-22] VITALS: Ht 157.5 cm; Wt 88.9 kg
[~2017-10-22 22:16] MED LIST changes: -ALBU-136 IH; -ALBU0.0912 IH; -ALBU0.5S1 NEB; +DEXT5SYR3 PO
[2017-10-22 22:23] VITALS: BP 139/96
--- NOTE | 2017-10-22 22:30 | NUR ---
37/F CAME IN ED, C/O 9/10 L UPPER BACK PAIN AND CHEST PAIN, RADIATING TO L ARM. PT REPORTS L ARM SLIGHT NUMBNESS AND TINGLING. PT DENIES TRAUMA, NO OBVIOUS ABNORMALITIES NOTED. PT DENIES FEVER, SOB, COUGH, N/V/D; SKIN IS INTACT, PINK/WARM/DRY; AAOX4, PERRL, WITH EVEN AND STEADY GAIT; LUNGS CLEAR BL, BREATHING UNLABORED; HR EVEN AND REGULAR, BL PERIPHERAL PULSES PRESENT; BS ACTIVE X4, NO TENDERNESS TO PALPATION; PATIENT POSITIONED FOR COMFORT; HOB ELEVATED; BEDRAILS UP X2; BED DOWN. ER MD AWARE. NO EKG ORDER PER MD.
--- NOTE | 2017-10-22 22:30 | NUR ---
MD NUÑEZ NOTIFIED OF PT'S CONDITION AT THIS TIME. NO EKG ORDERED.
[2017-10-22] MEDS ORDERED: KETOROLAC 60 MG/2 ML VIAL IM ONE ×2 (22:35→22:40)
[2017-10-22 23:14] VITALS: BP 134/89
== END 2017-10-22 23:15 | disposition home or self-care (01) ==
LOC: MED 22:16
DX: M54.6 Pain in thoracic spine (principal); M79.1 Myalgia; J45.909 Unspecified asthma, uncomplicated; Z79.2 Long term (current) use of antibiotics
CPT/HCPCS: 96372; 99283; J1885

== ENCOUNTER 2017-11-19 22:09 | Inpatient (IN) | payer MEDICAID ==
[~2017-11-19] VITALS: Ht 167.6 cm; Wt 71.7 kg
[2017-11-19 22:13] VITALS: BP 153/98
--- NOTE | 2017-11-19 22:13 | NUR ---
PT AMBULATED TO BED 10.
--- NOTE | 2017-11-19 22:15 | NUR ---
PATIENT PRESENTS TO ED WITH SOB. PT DENIES N/V/D; SKIN IS PINK/WARM/DRY; AAOX4 WITH EVEN AND STEADY GAIT; LUNGS CLEAR BL; HR EVEN AND REGULAR; PT DENIES ANY FEVER, CP, OR COUGH AT THIS TIME; PATIENT STATES PAIN OF 0/10 AT THIS TIME; VSS; PATIENT POSITIONED FOR COMFORT; HOB ELEVATED; BEDRAILS UP X1; BED DOWN. ER MD MADE AWARE OF PT STATUS.
--- NOTE | 2017-11-19 22:17 | NUR ---
Dr. Cunha evaluating patient at bedside.
[2017-11-19] MEDS ORDERED: methylPREDNISolone SS 125 MG/2 ML VIAL IM ONE (22:20)
[2017-11-19] MEDS ORDERED: ALBUTEROL SULFATE/IPRATROPIU 3 ML SOL IH ONE ×2 (22:20→22:24)
--- NOTE | 2017-11-19 22:22 | NUR ---
Breathing treatment administered at bedside by respiratory therapist.
--- NOTE | 2017-11-19 22:22 | NUR ---
ADMITTING DX: SEEKING MEDICAL ATTENTION HX: ASTHMA PATIENT C/O SOB AWAKE AND ALERT RESPONSIVE HFW POSITION SKIN TONE PINK TACHYPNEIC EDUCATION PROVIDED TO PATIENT WITH ACKNOWLEDGEMENT ON HHN THERAPY AND RESPIRATOY DRUG HHN THERAPY GIVEN ORDERED ENCOURAGED PATIENT FOR INTERMITENT RADHA BREATH DURING THERAPY TOLERATED WELL WITHOUT INCIDENT
[2017-11-19] MEDS ORDERED: MAGNESIUM SULFATE 1GM in DEXTROSE 5% 100 ML PREMIX IV PRN (22:40)
[2017-11-19] MEDS ORDERED: ALBUTEROL 0.083% 2.5 MG/3 ML NEBU INH ONE (22:40)
[2017-11-19] MEDS ORDERED: MAG SULF 2000 MG/WATER PREMIX 50 ML IV ONE (22:40)
--- NOTE | 2017-11-19 22:48 | NUR ---
FOLLOW UP HHN THERAPY GIVEN ORDERED ENCOURAGED INTERMITTENT DEEP BREATHING DURING THERAPY TOLERATED WELL WITHOUT INCIDENT PEAK FLOW: before 170L after 220L
[2017-11-20] MEDS ORDERED: NACL 0.9% 1,000 ML IV ONE ×3 (00:45→02:05)
[2017-11-20 01:14] LABS: BASOPHILS % (AUTO) 0.2 % (0.0-2.0); EOSINOPHILS # (AUTO) 0.1 K/uL (0-0.4); EOSINOPHILS % (AUTO) 0.5 % (0.0-4.0); HEMATOCRIT 40.3 % (36-48); HEMOGLOBIN 12.9 g/dL (12.0-16.0); LYMPHOCYTES # (AUTO) 0.6 K/uL (2.5-16.5); LYMPHOCYTES % (AUTO) 3.8 % (20.5-51.1); MEAN CORPUSCULAR HEMOGLOBIN 25 pg (27-31); MEAN CORPUSCULAR HGB CONC 32 g/dL (33-37); MEAN CORPUSCULAR VOLUME 78.7 fL (80-94); MONOCYTES # (AUTO) 0.3 K/uL (0.8-1.0); MONOCYTES % (AUTO) 2.2 % (1.7-9.3); NEUTROPHILS # (AUTO) 13.9 K/uL (1.8-7.7); NEUTROPHILS % (AUTO) 93.3 % (42.2-75.2); PLATELET COUNT (AUTO) 237 K/uL (140-450); RED BLOOD CELL COUNT(AUTO) 5.12 MIL/uL (4.20-5.40); RED CELL DISTRIBUTION WIDTH 14.5 % (11.6-13.7); WHITE BLOOD COUNT (AUTO) 14.8 K/uL (4.8-10.8)
[2017-11-20 01:32] LABS: ALBUMIN 3.2 g/dL (3.4-5.0); ANION GAP 16.5 (8-16); CARBON DIOXIDE 21.7 mmol/L (21-32); CREATININE 0.8 mg/dL (0.6-1.3); POTASSIUM 3.2 mmol/L (3.5-5.1); TOTAL BILIRUBIN 0.2 mg/dL (0.0-1.0)
[2017-11-20] MEDS ORDERED: PIPERACILLIN/TAZOBACTAM 3.375 GM in DEXTROSE 5% 50 ML IV ONE (01:35)
[2017-11-20] MEDS ORDERED: NACL 0.9% 250 ML IV ONE (01:45)
[2017-11-20] MEDS ORDERED: VANCOMYCIN 1,000 MG in DEXTROSE 5% 250 ML IV ONE (01:45)
[2017-11-20] MEDS ORDERED: PIPERACILLIN/TAZOBACTAM 3.375 GM VIAL IV ONE (01:52)
[2017-11-20] MEDS ORDERED: POTASSIUM CHLORIDE 20% 40 MEQ/15 ML UDC PO ONE (02:00)
[2017-11-20] MEDS ORDERED: ACETAMINOPHEN 325 MG TAB PO PRN (02:00)
[2017-11-20] MEDS ORDERED: ONDANSETRON 4 MG/2 ML VIAL IVP PRN (02:00)
[2017-11-20] MEDS ORDERED: VANCOMYCIN 1,000 MG VIAL ONE (02:36)
--- NOTE | 2017-11-20 02:48 | NUR ---
Dr. Pulido evaluating patient at bedside.
--- NOTE | 2017-11-20 02:56 | NUR ---
Awa burciaga in [facility] - 11/20/17 at [address] Pulido evaluating patient at bedside.
[2017-11-20 02:57] LABS: PROTHROMBIN TIME 10.4 secs (10.8-13.4)
[2017-11-20] MEDS ORDERED: IPRATROPIUM 0.02% 0.5 MG/2.5 ML NEBU INH ONE (03:00)
[2017-11-20 03:04] LABS: FREE T4 (FREE THYROXINE) 0.98 ng/dL (0.76-1.46); MAGNESIUM 2.2 mg/dL (1.8-2.4); PHOSPHORUS 1.7 mg/dL (2.5-4.9); THYROID STIMULATING HORMONE 0.42 uIU/mL (0.34-3.74)
[2017-11-20 03:15] VITALS: BP 115/74
--- NOTE | 2017-11-20 03:15 | NUR ---
PATIENT ADMITTED TO UNIT FROM ER. PATIENT AWAKE, ALERT AND ORIENTED. PATIENT ON O2 3L NC. WHEEZING NOTED IN BILATERAL LUNGS. NO C/O PAIN AT THIS TIME. IV SITE NOTED ON RIGHT AC WITH VANCOMYCIN CURRENTLY RUNNING. VITAL SIGNS ARE STABLE. PLAN OF CARE DISCUSSED WITH PATIENT. PATIENT VERBALIZED UNDERSTANDING. BED IN LOWEST POSITION, SIDE RAILS UP AND CALL LIGHT WITHIN REACH. WILL CONTINUE TO MONITOR.
--- NOTE | 2017-11-20 03:30 | NUR ---
ATROVENT MEDICATION WAS NOT AVAILABLE IN [facility] ONLY [facility]
[2017-11-20] MEDS ORDERED: methylPREDNISolone SS 80 MG in WATER STERILE 1 ML IV SCH (05:00)
--- NOTE | 2017-11-20 05:00 | NUR ---
ASSISTED PATIENT WITH AMBULATING TO THE RESTROOM. PATIENT VOIDED. ASSISTED PATIENT BACK TO BED. MILD SOB NOTED. PATIENT ON O2 3L NC. RT PRESENT TO GIVE BREATHING TREATMENT. WILL CONTINUE TO MONITOR.
[2017-11-20] MEDS: ALBUTEROL SULFATE/IPRATROPIU 3 ML SOL IH SCH ×4 (05:02→19:18)
[2017-11-20] MEDS: ALBUTEROL SULFATE/IPRATROPIU 3 ML SOL IH PRN (06:35)
[2017-11-20 07:05] LABS: CHOL/HDL RATIO 3.7 (1-4.5)
--- NOTE | 2017-11-20 07:21 | NUR ---
PATIENT REPORT GIVEN TO MORNING NURSE AT BEDSIDE FOR CONTINUITY OF CARE. PATIENT IS IN STABLE CONDITION
--- NOTE | 2017-11-20 07:25 | NUR ---
RECEIVED PT FROM BOX MAKER WOOD NURSE, PT IS AWAKE AND WITH AN IV LINE ON THE RIGHT AC G. 20 G. 20, INTACT WITH NS RUNNING AT 50ML/HR, INFUSING WELL. SIDE RAILS ARE UP AND CALL LIGHT WITHIN REACH. PT IS ON OS AT 3L NC, RESPIRATION EVEN AND NO SIGN OF DISTRESS NOTED. SAFETY PRECAUTION ENFORCED. WILL CONTINUE TO MONITOR.
[2017-11-20 08:00] VITALS: BP 109/65
--- NOTE | 2017-11-20 08:00 | NUR ---
PT IS AWAKE AND LYING ON THE BED, ASSISTED TO THE BATHROOM AND BACK TO BED, NO SOB NOTED ON THE PT. WILL CONTINUE TO MONITOR.
--- NOTE | 2017-11-20 08:43 | NUR ---
PATIENT HAS BEEN SCREENED AND CATEGORIZED HIGH NUTRITION RISK. PATIENT WILL BE SEEN WITHIN 1-2 DAYS OF ADMISSION. 11/20/17 11/21/[address]
[2017-11-20] MEDS: SODIUM PHOS / POTASSIUM PHOS 1 PKT PDR PO SCH ×2 (09:52→17:07)
[2017-11-20] MEDS: DOCUSATE SODIUM 100 MG GELCAP PO SCH ×2 (09:53→20:32)
[2017-11-20] MEDS: MONTELUKAST SODIUM 10 MG TAB PO SCH (09:53)
[2017-11-20] MEDS: LACTOBACILLUS RHAMNOSUS GG 1 EACH CAP PO SCH (09:53)
[2017-11-20] MEDS: HYDROcodone/APAP 7.5/325 MG 1 TAB PO PRN (11:21)
[2017-11-20 12:00] VITALS: BP 121/71
[2017-11-20] MEDS ORDERED: BENZOCAINE/MENTHOL 1 LOZ MM PRN (12:15)
[2017-11-20] MEDS: PIPER/TAZO 3.375GM/D5W PREMIX 50 ML IV SCH ×2 (12:43→20:31)
--- NOTE | 2017-11-20 12:45 | NUR ---
PT IS AWAKE AND LYING ON THE BED AND MEDICATION GIVEN VIA IVPB, PT TOLERATED IT AND NO SIGN OF DISTRESS NOTED. WILL MONITOR.
[2017-11-20] MEDS: methylPREDNISolone SS 125 MG/2 ML VIAL IVP SCH ×2 (12:49→20:32)
[2017-11-20] MEDS ORDERED: PIPERACILLIN/TAZOBACTAM 3.375 GM in DEXTROSE 5% 50 ML IV SCH (13:00)
--- NOTE | 2017-11-20 14:02 | NUR ---
PT WAS DOWNGRADE TO MED-SURG, HEART MONITOR REMOVED AND WAS PLACED IN THE BASKET BIN, MANAGER INTEGRATION, ROSE WAS INFORMED AND SHE ACKNOWLEDGED.
--- NOTE | 2017-11-20 14:56 | NUR ---
11/20/17 RD INITIAL ASSESSMENT COMPLETED PLEASE REFER TO NUTRITION ASSESSMENT UNDER CARE ACTIVITY FOR ESTIMATED NUTRITIONAL NEEDS. 1. CONTINUE CCHO 60 GM DIET TOLERATED 2. RD TO FOLLOW-UP 5-7 DAYS, LOW RISK MICHAEL LARA RD
[2017-11-20 16:00] VITALS: BP 122/63
--- NOTE | 2017-11-20 17:11 | NUR ---
PT IS AWAKE AND VITAL SIGNS TAKEN AND IS STABLE. MEDICATION GIVEN AND PT TOLERATED IT WELL. NO SIGN OF DISTRESS NOTED AND WILL MONITOR.
--- NOTE | 2017-11-20 19:20 | NUR ---
ENDORSED PT TO [facility] SHIFT NURSECHRISTINA FOR CONTINUITY OF CARE, PT IS AWAKE, AND RT ON THE BEDSIDE AND RT IS ABOUT TO START THE BREATHING TREATMENT TO THE PT. PT IS STABLE AT THIS TIME.
--- NOTE | 2017-11-20 19:30 | NUR ---
ASSUMED CARE OF PATIENT, AWAKE, ALERT AND ORIENTED. AT BEDSIDE. NO COMPLAINS. RT AT BEDSIDE FOR BREATHING TREATMENT. CALL LIGHT WITHIN REACH.
--- NOTE | 2017-11-20 20:00 | NUR ---
PLAN OF CARE DISCUSSED WITH PATIENT AND FAMILY MEMBER, VERBALIZED UNDERSTANDING WELL. CALL LIGHT WITHIN REACH. CARE BOARD UPDATED.
--- NOTE | 2017-11-20 20:45 | NUR ---
DUE MEDS GIVEN. NO COMPLAINS. ALL LIGHT WITHIN REACH.
--- NOTE | 2017-11-21 | NUR ---
VITAL SIGNS STABLE. NO COMPLAINS OR DISTRESS NOTED. AFEBRILE. CALL LIGHT WITHIN REACH.
[2017-11-21 00:21] VITALS: BP 124/71
[2017-11-21] MEDS: PIPER/TAZO 3.375GM/D5W PREMIX 50 ML IV SCH ×3 (04:28→20:58)
[2017-11-21] MEDS: methylPREDNISolone SS 40 MG/ML VIAL IVP SCH ×3 (04:29→20:59)
[2017-11-21] MEDS ORDERED: methylPREDNISolone SS 40 MG in WATER STERILE 1 ML IV SCH (05:00)
[2017-11-21] MEDS: ALBUTEROL SULFATE/IPRATROPIU 3 ML SOL IH SCH ×2 (06:54→13:51)
--- NOTE | 2017-11-21 07:24 | NUR ---
ENDORSED CARE AT BEDSIDE WITH RADHA RN, PATIENT IN STABLE CONDITION.
[2017-11-21] MEDS ORDERED: SALMETEROL DISKUS 50 MCG/ACTUATION DISK INH SCH (07:30)
--- NOTE | 2017-11-21 07:30 | NUR ---
RECEIVED PT ON BED AAOX4. NO SOB NOTED. NO C/O PAIN AT THIS TIME. IV TO LT HAND PATENT AND INTACT. CHEST DIMINISHED AIR ENTRY TO THE BASES, BILATERAL WHEEZING HEARD, ON 02 AT 2LPM VIA NASAL CANNULA, WITH 95% O2 SATS. ABDOMEN SOFT, BOWEL SOUNDS PRESENT. NO EDEMA NOTED. INSTRUCTED PT TO CALL FOR ASSISTANCE, CALL LIGHT WITHIN REACH, PT VERBALIZED UNDERSTANDING.
[2017-11-21 07:53] LABS: HEMATOCRIT 38.6 % (36-48); HEMOGLOBIN 12.3 g/dL (12.0-16.0); LYMPHOCYTES # (AUTO) 1.3 K/uL (2.5-16.5); LYMPHOCYTES % (AUTO) 7.3 % (20.5-51.1); MEAN CORPUSCULAR HEMOGLOBIN 25 pg (27-31); MEAN CORPUSCULAR HGB CONC 32 g/dL (33-37); MEAN CORPUSCULAR VOLUME 78.8 fL (80-94); MONOCYTES # (AUTO) 0.4 K/uL (0.8-1.0); MONOCYTES % (AUTO) 2.2 % (1.7-9.3); NEUTROPHILS # (AUTO) 16.6 K/uL (1.8-7.7); NEUTROPHILS % (AUTO) 90.5 % (42.2-75.2); PLATELET COUNT (AUTO) 269 K/uL (140-450); RED CELL DISTRIBUTION WIDTH 14.5 % (11.6-13.7); WHITE BLOOD COUNT (AUTO) 18.4 K/uL (4.8-10.8)
[2017-11-21 07:57] LABS: ANION GAP 12.2 (8-16); CARBON DIOXIDE 24.7 mmol/L (21-32); CREATININE 0.7 mg/dL (0.6-1.3); POTASSIUM 3.9 mmol/L (3.5-5.1)
[2017-11-21 08:00] VITALS: BP 111/67
[2017-11-21 08:31] LABS: MAGNESIUM 1.9 mg/dL (1.8-2.4); PHOSPHORUS 2.9 mg/dL (2.5-4.9)
[2017-11-21] MEDS: MONTELUKAST SODIUM 10 MG TAB PO SCH (09:38)
[2017-11-21] MEDS: LACTOBACILLUS RHAMNOSUS GG 1 EACH CAP PO SCH (09:38)
[2017-11-21] MEDS: DOCUSATE SODIUM 100 MG GELCAP PO SCH ×2 (09:38→20:59)
[2017-11-21] MEDS: SODIUM PHOS / POTASSIUM PHOS 1 PKT PDR PO SCH (09:38)
[2017-11-21] MEDS: guaiFENesin DM 200/20 MG-10 ML 10 ML UDC PO PRN (09:45)
[2017-11-21] MEDS: HYDROcodone/APAP 7.5/325 MG 1 TAB PO PRN (09:45)
[2017-11-21] MEDS: ALBUTEROL SULFATE/IPRATROPIU 3 ML SOL IH PRN (09:59)
--- NOTE | 2017-11-21 10:15 | NUR ---
AWAKE AND ALERT RESPONSIVE TOLERATED INCENTIVE SPIROMETRY THERAPY WELL WITHOUT INCIDENT ENCOURAGED PATIENT TO USE EVERY 1-2 HOURS WHILE AWAKE
[2017-11-21] MEDS ORDERED: NACL 0.9% 500 ML IV SCH (11:25)
[2017-11-21] MEDS: NACL 0.9% 1,000 ML IV SCH ×2 (11:49→21:00)
--- NOTE | 2017-11-21 12:00 | NUR ---
NORMAL SALINE 500 MLS IV BOLUS ON GOING ORDERED.
--- NOTE | 2017-11-21 13:10 | NUR ---
PT CONSUMED 100% OF LUNCH SERVED, FOOD TOLERATED WELL.
--- NOTE | 2017-11-21 15:50 | NUR ---
PT HAS BEEN AMBULATING TO THE BATHROOM WITH 02 EXTENSION. ACTIVITY TOLERATED WELL NO SOB NOTED.
[2017-11-21 16:00] VITALS: BP 133/70
--- NOTE | 2017-11-21 18:56 | NUR ---
PT AWAKE. TALKING ON THE PHONE. NO COMPLAINTS MADE. WILL ENDORSE TO NEXT SHIFT NURSE FOR CONTINUITY OF CARE.
--- NOTE | 2017-11-21 19:25 | NUR ---
RECEIVED REPORT FROM DAY SHIFT RN, PATIENT RESTING IN BED, NO S/S OF DISTRESS NOTED, RESPIRATION EVEN AND UNLABORED, ON O2 NASAL CANNULA 2L. IV PATENT AND INTACT, INFUSING NS AT 100ML/HR. CALL LIGHT WITHIN REACH, SAFETY MEASURE ENSURED, WILL CONTINUE TO MONITOR.
[2017-11-21 20:00] VITALS: BP 125/72
--- NOTE | 2017-11-21 20:14 | NUR ---
PATIENT USED THE RESTROOM, NO S/S OF DISTRESS NOTED, PATIENT RESTING IN BED, VITAL SIGNS STABLE. CALL LIGHT WITHIN REACH, SAFETY MEASURE ENSURED, WILL CONTINUE TO MONITOR.
--- NOTE | 2017-11-21 21:05 | NUR ---
DUE MEDICATION GIVEN, PATIENT TOLERATED WELL. NO S/S OF DISTRESS NOTED, RESPIRATION EVEN AND UNLABORED, CALL LIGHT WITHIN REACH, SAFETY MEASURE ENSURED, WILL CONTINUE TO MONITOR.
[2017-11-22] VITALS: BP 114/69
--- NOTE | 2017-11-22 00:56 | NUR ---
PATIENT WAS SLEEPING, EASY TO AROUSE, VITAL SIGNS STABLE. CALL LIGHT WITHIN REACH, SAFETY MEASURE ENSURED, WILL CONTINUE TO MONITOR.
--- NOTE | 2017-11-22 03:38 | NUR ---
NO CHANGE IN CONDITION, PATIENT IS SLEEPING, EASY TO AROUSE. CALL LIGHT WITHIN REACH, SAFETY MEASURE ENSURED, WILL CONTINUE TO MONITOR.
[2017-11-22] MEDS: PIPER/TAZO 3.375GM/D5W PREMIX 50 ML IV SCH ×3 (04:16→20:11)
[2017-11-22 06:03] LABS: EOSINOPHILS % (AUTO) 0.1 % (0.0-4.0); HEMATOCRIT 37.1 % (36-48); HEMOGLOBIN 11.6 g/dL (12.0-16.0); LYMPHOCYTES # (AUTO) 1.5 K/uL (2.5-16.5); LYMPHOCYTES % (AUTO) 11.2 % (20.5-51.1); MEAN CORPUSCULAR HEMOGLOBIN 25 pg (27-31); MEAN CORPUSCULAR HGB CONC 31 g/dL (33-37); MEAN CORPUSCULAR VOLUME 79.3 fL (80-94); MONOCYTES # (AUTO) 0.5 K/uL (0.8-1.0); MONOCYTES % (AUTO) 4.1 % (1.7-9.3); NEUTROPHILS # (AUTO) 11.2 K/uL (1.8-7.7); NEUTROPHILS % (AUTO) 84.6 % (42.2-75.2); PLATELET COUNT (AUTO) 265 K/uL (140-450); RED BLOOD CELL COUNT(AUTO) 4.68 MIL/uL (4.20-5.40); RED CELL DISTRIBUTION WIDTH 14.7 % (11.6-13.7); WHITE BLOOD COUNT (AUTO) 13.2 K/uL (4.8-10.8)
[2017-11-22 06:21] LABS: ANION GAP 9.7 (8-16); CARBON DIOXIDE 27.4 mmol/L (21-32); CREATININE 0.8 mg/dL (0.6-1.3); POTASSIUM 4.1 mmol/L (3.5-5.1)
--- NOTE | 2017-11-22 06:38 | NUR ---
PATIENT IS SLEEPING, RESPIRATION EVEN AND UNLABORED, CALL LIGHT WITHIN REACH, SAFETY MEASURE ENSURED, WILL CONTINUE TO MONITOR.
[2017-11-22] MEDS: ALBUTEROL SULFATE/IPRATROPIU 3 ML SOL IH SCH ×4 (07:10→19:40)
--- NOTE | 2017-11-22 07:19 | NUR ---
ENDORSED PLAN OF CARE TO DAY SHIFT RN, PATIENT IS IN STABLE CONDITION.
--- NOTE | 2017-11-22 07:30 | NUR ---
RECEIVED PT ON BED AAOX4. NO SOB NOTED. NO C/O PAIN AT THIS TIME. IV TO LT HAND PATENT AND INTACT. CHEST DIMINISHED AIR ENTRY TO THE BASES, SLIGHT WHEEZING HEARD BILATERALLY, ON 02 AT 2LPM VIA NASAL CANNULA, WITH 96% O2 SATS. ABDOMEN SOFT, BOWEL SOUNDS PRESENT. NO EDEMA NOTED. INSTRUCTED PT TO CALL FOR ASSISTANCE, CALL LIGHT WITHIN REACH, PT VERBALIZED UNDERSTANDING.
[2017-11-22 08:28] VITALS: BP 144/77
[2017-11-22] MEDS: DOCUSATE SODIUM 100 MG GELCAP PO SCH ×2 (09:39→20:11)
[2017-11-22] MEDS: NACL 0.9% 1,000 ML IV SCH ×2 (09:39→17:25)
[2017-11-22] MEDS: MONTELUKAST SODIUM 10 MG TAB PO SCH (09:40)
[2017-11-22] MEDS: LORATADINE 10 MG TAB PO SCH (09:40)
[2017-11-22] MEDS: LACTOBACILLUS RHAMNOSUS GG 1 EACH CAP PO SCH (09:40)
--- NOTE | 2017-11-22 10:30 | NUR ---
PT ON ROOM AIR, WITH 02 SATS OF 94%. ENCOURAGED THE USE OF INCENTIVE SPIROMETRY, PT VERBALIZED UNDERSTANDING.
[2017-11-22] MEDS: ALBUTEROL SULFATE/IPRATROPIU 3 ML SOL IH PRN (10:57)
[2017-11-22] MEDS ORDERED: IPRA3AMP IH (11:16)
[2017-11-22] MEDS ORDERED: LORA10TA19 PO (11:16)
[2017-11-22] MEDS ORDERED: LACT1.4C PO (11:16)
[2017-11-22] MEDS ORDERED: ACET-9529 PO (11:16)
[2017-11-22] MEDS ORDERED: BUDE1AER2 IH (11:40)
[2017-11-22] MEDS ORDERED: AMOX-999 PO (11:48)
[2017-11-22] MEDS ORDERED: METH4TAB3 PO (13:41)
[2017-11-22] MEDS ORDERED: GUAI-646 PO (14:02)
[2017-11-22] MEDS ORDERED: DOCU-299 PO (14:02)
--- NOTE | 2017-11-22 15:00 | NUR ---
PT AMBULATING IN THE HALLWAY COUPLE TIMES, ACTIVITY TOLERATED WELL. NO SOB NOTED. O2 SATURATIONS AT 95% ON ROOM AIR WHILE AMBULATING.
[2017-11-22 16:00] VITALS: BP 108/60
--- NOTE | 2017-11-22 18:48 | NUR ---
PT AWAKE. TALKING ON THE PHONE. NO COMPLAINTS MADE. WILL ENDORSE TO NEXT SHIFT NURSE FOR CONTINUITY OF CARE.
--- NOTE | 2017-11-22 19:30 | NUR ---
RECEIVED REPORT FROM [employer] NURSE SERRANO AT BEDSIDE FOR CONTINUITY OF CARE. PT AAOX4. PT HAS NO SOB NO S/S OF DISTRESS ON RA. IV NOTED L HAND 20G NS 100ML/HR. BED LOWERED CALL LIGHT WITHIN REACH. AMBULATORY. WILL CONTINUE TO MONITOR.
[2017-11-22] MEDS ORDERED: methylPREDNISolone SS 125 MG/2 ML VIAL IVP SCH (21:00)
[2017-11-22 23:58] VITALS: BP 131/66
[2017-11-23] MEDS: ALBUTEROL SULFATE/IPRATROPIU 3 ML SOL IH PRN (01:10)
[2017-11-23] MEDS: ALBUTEROL SULFATE/IPRATROPIU 3 ML SOL IH SCH ×4 (01:10→16:00)
--- NOTE | 2017-11-23 01:13 | NUR ---
PT SLEEPING NO SOB NO S/S OF DISTRESS. WILL CONTINUE TO MONITOR.
[2017-11-23] MEDS: NACL 0.9% 1,000 ML IV SCH ×2 (03:11→13:25)
[2017-11-23] MEDS: guaiFENesin DM 200/20 MG-10 ML 10 ML UDC PO PRN ×2 (04:05→11:58)
[2017-11-23] MEDS: PIPER/TAZO 3.375GM/D5W PREMIX 50 ML IV SCH ×2 (04:05→12:14)
--- NOTE | 2017-11-23 05:00 | NUR ---
PT SLEEPING COUGH MEDICINE WORKED FOR PT. PT SLEEPING WILL CONTINUE TO MONITOR.
[2017-11-23 07:27] LABS: HEMATOCRIT 38.8 % (36-48); HEMOGLOBIN 12.3 g/dL (12.0-16.0); MEAN CORPUSCULAR HEMOGLOBIN 25 pg (27-31); MEAN CORPUSCULAR HGB CONC 32 g/dL (33-37); MEAN CORPUSCULAR VOLUME 79.5 fL (80-94); PLATELET COUNT (AUTO) 234 K/uL (140-450); RED BLOOD CELL COUNT(AUTO) 4.88 MIL/uL (4.20-5.40); RED CELL DISTRIBUTION WIDTH 14.1 % (11.6-13.7); WHITE BLOOD COUNT (AUTO) 7.7 K/uL (4.8-10.8)
--- NOTE | 2017-11-23 07:35 | NUR ---
ENDORSED REPORT TO DAYSHIFT NURSE AT BEDSIDE FOR CONTINUITY OF CARE.
--- NOTE | 2017-11-23 07:36 | NUR ---
RECEIVED REPORT FROM DRAFTER AUTOMOTIVE DESIGN NURSE AT BEDSIDE FOR CONTINUITY OF CARE. PT SLEEPING BUT AROUSABLE, AOX4. PT HAS NO SOB NO S/S OF DISTRESS ON 2L O2 VIA NC. IV NOTED L HAND 20G NS 100ML/HR. UPDATED BOARD, SAFETY PRECAUTION BED LOWERED, CALL LIGHT WITHIN REACH. AMBULATORY. WILL CONTINUE TO MONITOR PATIENT.
[2017-11-23 08:00] VITALS: BP 113/71
[2017-11-23 08:06] LABS: ANION GAP 12.2 (8-16); CARBON DIOXIDE 25.6 mmol/L (21-32); CREATININE 0.9 mg/dL (0.6-1.3); POTASSIUM 3.8 mmol/L (3.5-5.1)
[2017-11-23 08:23] LABS: LYMPHOCYTES % (MANUAL) 13 % (20-46); MONOCYTES % (MANUAL) 3 % (5-12)
[2017-11-23] MEDS: LACTOBACILLUS RHAMNOSUS GG 1 EACH CAP PO SCH (08:53)
[2017-11-23] MEDS: MONTELUKAST SODIUM 10 MG TAB PO SCH (08:53)
[2017-11-23] MEDS: DOCUSATE SODIUM 100 MG GELCAP PO SCH (08:53)
[2017-11-23] MEDS: LORATADINE 10 MG TAB PO SCH (08:53)
--- NOTE | 2017-11-23 08:53 | NUR ---
ORDERED MEDICATIONS GIVEN. PATIENT TOLERATING THEM WELL. PATIENT JUST RECEIVED BREATHING TREATMENT. PATIENT NOW SITTING UP IN BED EATING BREAKFAST. NO SIGNS OF DISTRESS OR SOB NOTED ON 2L O2 NC. PATIENT DENIES PAIN AT THIS TIME. URINE SAMPLE COLLECTED. SPECIMEN SENT TO LAB. SAFETY PRECAUTION IN PLACE, CALL LIGHT WITHIN REACH. WILL CONTINUE TO MONITOR PATIENT.
--- NOTE | 2017-11-23 11:15 | NUR ---
SPOKE TO DR. MEIER ABOUT PLAN OF CARE FOR THE DAY. PATIENT WILL BE DISCHARGED IF HER O2 SATURATION IS 92-100% ON ROOM AIR AND NO PAIN AFTER AMBULATION. PATIENT AWARE OF PLAN AND STATES THAT SHE WILL WALK LATER. RN VERBALIZED UNDERSTANDING AND WILL CONTINUE TO MONITOR PATIENT.
--- NOTE | 2017-11-23 12:14 | NUR ---
PATIENT AMBULATED AROUND [facility] FLOOR. PATIENT TOLERATED IT WELL. PATIENT HAS INTERMITTENS COUGH. ROBITUSSIN OFFERED, PATIENT TOLERATED IT WELL. ORDERED MEDICATION GIVEN. PATIENT TOLERATED IT WELL. O2 SATURATION 91-93% ON ROOM AIR. RESPIRATIONS EVEN AND UNLABORED, NO SIGNS OF DISTRESS OR SOB NOTED ON ROOM AIR AT THIS TIME. SAFETY PRECAUTION IN PLACE, CALL LIGHT WITHIN REACH, WILL CONTINUE TO MONITOR PATIENT.
--- NOTE | 2017-11-23 12:57 | NUR ---
SATURATION 92% ON ROOM AIR PER [place]/RN OFF SUPPLEMENTAL OXYGEN FOR POSSIBLE DISCHARGE
[2017-11-23 13:24] LABS: APPEARANCE,URINE CLEAR (CLEAR); BILIRUBIN,URINE NEGATIVE (NEGATIVE); BLOOD, URINE NEGATIVE (NEGATIVE); COLOR,URINE YELLOW (YELLOW); LEUKOCYTE ESTERASE ,URINE NEGATIVE (NEGATIVE); NITRITE, URINE NEGATIVE (NEGATIVE); PH,URINE 7.5 (5.0-9.0); UGLUCOSE NEGATIVE (NEGATIVE)
[2017-11-23 13:27] LABS: BARBITURATE, URINE NEG. ng/ml (NEG <=200); BENZODIAZEPINE, URINE NEG. ng/mL (NEG <=200); CANNABINOID, URINE NEG. ng/mL (NEG <=50); COCAINE, URINE NEG. ng/mL (NEG <=300); OPIATE, URINE NEG. ng/mL (NEG <=2000); PHENCYCLIDINE SCREEN,URINE NEG. ng/mL (NEG <=25)
--- NOTE | 2017-11-23 13:45 | NUR ---
DISCHARGE INSTRUCTION AND EDUCATION GIVEN TO PATIENT. PATIENT VERBALIZED UNDERSTANDING ABOUT THE MEDICATIONS PRESCRIBED AND THE ASTHMA INFORMATION PROVIDED IN MONGOLIAN FOR HER. IV REMOVED, IV CATHETER INTACT, MINIMAL BLEEDING NOTED. ID BANDS REMOVED. PATIENT STATED THAT HER FRIENDS WILL PICK HER UP AFTER 1600, RN VERBALIZED UNDERSTANDING AND TOLD PATIENT SHE COULD CHANGE AND WAIT UNTIL HER FRIENDS COME TO BE DISCHARGED. PATIENT VERBALIZED UNDERSTANDING.
[2017-11-23] MEDS ORDERED: AZIT250T3 PO (13:55)
[2017-11-23] MEDS ORDERED: PRED20TA5 PO (13:57)
--- NOTE | 2017-11-23 16:22 | NUR ---
PATIENT IN THE PROCESS OF BEING DISCHARGED REFUSED HHN THERAPY NO EVIDENCE OF RESPIRATORY DISTRESS NOTED SATURATION 95% HR 80 RR 20
--- NOTE | 2017-11-23 16:25 | NUR ---
PATIENT AMBULATED OFF FLOOR ON STEADY GAIT WITH RN ACCOMPANYING. PATIENT TOOK ALL HER BELONGINGS. PATIENT IN STABLE CONDITION.
== END 2017-11-23 16:25 | disposition home or self-care (01) | DRG 720 ==
LOC: MED 22:09 → MTU 11-20 01:57
PROVIDERS: ADMIT General Practice; ATTEND General Practice
DX: A41.9 Sepsis, unspecified organism (principal); J96.01 Acute respiratory failure with hypoxia; E44.0 Moderate protein-calorie malnutrition; J45.901 Unspecified asthma with (acute) exacerbation; E83.39 Other disorders of phosphorus metabolism; J18.1 Lobar pneumonia, unspecified organism; R65.20 Severe sepsis without septic shock; E66.9 Obesity, unspecified; Z68.25 Body mass index [BMI] 25.0-25.9, adult; E87.6 Hypokalemia; R73.9 Hyperglycemia, unspecified
CPT/HCPCS: 36415; 36600; 71045; 80048; 80053; 80305; 81003; 82150; 82803; 83036; 83605; 83690; 83735; 83880; 84100; 84439; 84443; 84484; 85025; 85610; 85730; 87040; 87081; 93005; 94640; 96365; 96366; 96367; 96368; 96372; 99291; J2543; J2920; J2930; J3370; J7030; J7060; J7613; J7620; Q0092

== ENCOUNTER 2017-12-07 15:04 | Inpatient (IN) | payer MEDICAID ==
[~2017-12-07] VITALS: Ht 154.9 cm; Wt 88.0 kg
[~2017-12-07 15:04] MED LIST changes: +ACET-9529 PO; +ALBU3SOL83 IH; +AZIT250T3 PO; +BUDE1AER2 IH; +DOCU-299 PO; +GUAI-646 PO; -LEVO500T2 PO; +LORA10TA19 PO; +PRED20TA5 PO
--- NOTE | 2017-12-07 15:07 | NUR ---
PT AMBULATES TO BED 7
[2017-12-07 15:14] VITALS: BP 142/90
[2017-12-07] MEDS ORDERED: DEXAMETHASONE 10 MG/ML VIAL IM ONE (15:15)
[2017-12-07] MEDS ORDERED: ALBUTEROL SULFATE/IPRATROPIU 3 ML SOL IH ONE ×2 (15:15→16:25)
[2017-12-07] MEDS ORDERED: diphenhydrAMINE 50 MG/ML VIAL IM ONE (15:15)
--- NOTE | 2017-12-07 15:20 | NUR ---
C/O SOB X TODAY WITH AUDITRY WEEZING BOTH LUNG. CAME HERE SAME S/S X 5 DAYS AGO; GOT PREDNISONE, AZITHROMYCINE& SYMBICORT. PT ALSO C/O COUGH X 3 WEEKS. HX OF ASTHMA. PT DENIES N/V/D; SKIN IS INTACT, PINK/WARM/DRY; AAOX4, PERRL, WITH EVEN AND STEADY GAIT; HR EVEN AND REGULAR, BL PERIPHERAL PULSES PRESENT; BS ACTIVE X4, NO TENDERNESS TO PALPATION, NO HEPATOSPLENOMEGALLY PALPATED, RESONANT TO PERCUSSION; PT DENIES ANY FEVER, CP; PT STATES 0/10 PAIN AT THIS TIME; VSS; PATIENT POSITIONED FOR COMFORT; HOB ELEVATED; BEDRAILS UP X2; BED DOWN.
--- NOTE | 2017-12-07 15:50 | NUR ---
report given to Landy TIPTON
--- NOTE | 2017-12-07 15:55 | NUR ---
RECEIVED PT FROM [facility], PT HAS NONPRODUCTIVE COUGH, O2 SATS 97%. PT RESTING IN BED. NO S/S OF RESPIRATORY DISTRESS NOTED.
[2017-12-07 17:18] LABS: BASOPHILS % (AUTO) 0.2 % (0.0-2.0); EOSINOPHILS # (AUTO) 0.2 K/uL (0-0.4); EOSINOPHILS % (AUTO) 1.2 % (0.0-4.0); HEMATOCRIT 41.7 % (36-48); HEMOGLOBIN 13.4 g/dL (12.0-16.0); LYMPHOCYTES % (AUTO) 14.6 % (20.5-51.1); MEAN CORPUSCULAR HEMOGLOBIN 25 pg (27-31); MEAN CORPUSCULAR HGB CONC 32 g/dL (33-37); MEAN CORPUSCULAR VOLUME 78.7 fL (80-94); MONOCYTES # (AUTO) 0.3 K/uL (0.8-1.0); MONOCYTES % (AUTO) 2.3 % (1.7-9.3); NEUTROPHILS # (AUTO) 11.3 K/uL (1.8-7.7); NEUTROPHILS % (AUTO) 81.7 % (42.2-75.2); PLATELET COUNT (AUTO) 241 K/uL (140-450); RED CELL DISTRIBUTION WIDTH 14.4 % (11.6-13.7); WHITE BLOOD COUNT (AUTO) 13.8 K/uL (4.8-10.8)
[2017-12-07 17:36] LABS: ANION GAP 13.8 (8-16); CARBON DIOXIDE 24.8 mmol/L (21-32); CREATININE 0.7 mg/dL (0.6-1.3); POTASSIUM 3.6 mmol/L (3.5-5.1)
[2017-12-07 17:41] LABS: PROTHROMBIN TIME 9.7 secs (10.8-13.4)
[2017-12-07 17:50] LABS: D-DIMER < 100 ng/ml (0-400)
[2017-12-07] MEDS ORDERED: LEVOFLOXACIN 500 MG/D5W PREMIX 100 ML IV ONE (17:50)
[2017-12-07] MEDS ORDERED: methylPREDNISolone SS 125 MG/2 ML VIAL IVP ONE (17:50)
[2017-12-07] MEDS ORDERED: DOCUSATE SODIUM 100 MG GELCAP PO PRN (17:55)
[2017-12-07] MEDS ORDERED: ALBUTEROL SULFATE/IPRATROPIU 3 ML SOL IH PRN (17:55)
[2017-12-07] MEDS ORDERED: ACETAMINOPHEN 325 MG TAB PO PRN (17:55)
[2017-12-07] MEDS ORDERED: KETOROLAC 15 MG/ML VIAL IVP PRN (17:55)
[2017-12-07] MEDS ORDERED: ONDANSETRON 4 MG/2 ML VIAL IM/IVP PRN (17:55)
[2017-12-07 17:59] LABS: ALBUMIN 3.2 g/dL (3.4-5.0); MAGNESIUM 1.9 mg/dL (1.8-2.4); TOTAL BILIRUBIN 0.2 mg/dL (0.0-1.0)
[2017-12-07] MEDS ORDERED: PROMETH/CODEINE 6.25-10MG/5ML 5 ML UDC PO PRN (18:45)
[2017-12-07 18:53] LABS: FREE T4 (FREE THYROXINE) 0.97 ng/dL (0.76-1.46); PHOSPHORUS 2.5 mg/dL (2.5-4.9); THYROID STIMULATING HORMONE 0.23 uIU/mL (0.34-3.74)
[2017-12-07 19:15] VITALS: BP 120/69
--- NOTE | 2017-12-07 19:15 | NUR ---
PT ARRIVED ON UNIT VIA GURNEY WITH TWO ER NURSES. PT IN STABLE CONDITION. PT IS A/O X4. PT VS ARE STABLE. PT ON RA. NONPRODUCTIVE COUGH PRESENT. SKIN IS INTACT. IV ACCESS IN L FA 20G. IV IS PATENT AND INTACT. BED IS LOCKED, LOW POSITION WITH SIDE RAILS UP X2. BOARD UPDATED. PT ORIENTED TO ROOM AND USE OF CALL LIGHT. NO C/O PAIN AT THIS TIME. WILL CONTINUE TO MONITOR PT.
--- NOTE | 2017-12-07 19:15 | NUR ---
Patient will be admitted to care of Dr. Vernon. Admited to mst 106 B. Will go to room 106B. Belongings list completed. Report to Monique TIPTON.
[2017-12-07] MEDS ORDERED: MONTELUKAST SODIUM 10 MG TAB PO SCH (20:00)
[2017-12-07] MEDS: NACL 0.9% 1,000 ML IV SCH (20:20)
--- NOTE | 2017-12-07 20:20 | NUR ---
MEDICATIONS GIVEN PER MD ORDER. PT TOLERATED WELL. WILL CONTINUE TO MONITOR.
[2017-12-07] MEDS: BUDESONIDE 0.5 MG/2 ML NEBU INH SCH (20:55)
[2017-12-07] MEDS: ALBUTEROL SULFATE/IPRATROPIU 3 ML SOL IH SCH (20:55)
[2017-12-07] MEDS ORDERED: PROMETH/CODEINE 6.25-10MG/5ML 5 ML UDC PO SCH (21:00)
[2017-12-07] MEDS ORDERED: methylPREDNISolone SS 40 MG in WATER STERILE 1 ML IM SCH (21:00)
--- NOTE | 2017-12-07 22:30 | NUR ---
PT IS ASLEEP IN BED. NO S/SX OF DISTRESS. WILL CONTINUE TO MONITOR.
[2017-12-07] MEDS ORDERED: FAMOTIDINE 20 MG TAB PO SCH (23:45)
[2017-12-08] VITALS: BP 107/66
--- NOTE | 2017-12-08 00:13 | NUR ---
ADMINISTERED ORDERED MED. PT VS WITHIN NORMAL LIMITS. WILL CONTINUE TO MONITOR PT.
[2017-12-08] MEDS ORDERED: methylPREDNISolone SS 40 MG/ML VIAL IVP SCH ×2 (02:00→13:00)
--- NOTE | 2017-12-08 02:20 | NUR ---
PT IS ASLEEP IN BED. NO SIGNS OF DISTRESS. WILL CONTINUE TO MONITOR.
[2017-12-08 04:00] VITALS: BP 109/62
--- NOTE | 2017-12-08 04:12 | NUR ---
PT VS WITHIN NORMAL LIMITS. NO S/SX OF DISTRESS. WILL CONTINUE TO MONITOR PT.
[2017-12-08 05:54] LABS: HEMATOCRIT 38.9 % (36-48); HEMOGLOBIN 12.6 g/dL (12.0-16.0); MEAN CORPUSCULAR HEMOGLOBIN 25 pg (27-31); MEAN CORPUSCULAR HGB CONC 32 g/dL (33-37); MEAN CORPUSCULAR VOLUME 78.4 fL (80-94); PLATELET COUNT (AUTO) 245 K/uL (140-450); RED BLOOD CELL COUNT(AUTO) 4.97 MIL/uL (4.20-5.40); RED CELL DISTRIBUTION WIDTH 14.6 % (11.6-13.7); WHITE BLOOD COUNT (AUTO) 17.8 K/uL (4.8-10.8)
[2017-12-08] MEDS: ALBUTEROL SULFATE/IPRATROPIU 3 ML SOL IH SCH ×3 (06:22→19:28)
[2017-12-08] MEDS: BUDESONIDE 0.5 MG/2 ML NEBU INH SCH ×2 (06:30→19:28)
[2017-12-08 06:31] LABS: MAGNESIUM 1.8 mg/dL (1.8-2.4); PHOSPHORUS 2.5 mg/dL (2.5-4.9)
[2017-12-08 06:32] LABS: ANION GAP 15.7 (8-16); CARBON DIOXIDE 22.1 mmol/L (21-32); CREATININE 0.8 mg/dL (0.6-1.3); POTASSIUM 3.8 mmol/L (3.5-5.1)
--- NOTE | 2017-12-08 06:32 | NUR ---
PATIENT HAS BEEN SCREENED AND CATEGORIZED MODERATE NUTRITION RISK. PATIENT WILL BE SEEN WITHIN 3-5 DAYS OF ADMISSION. 12/09/17-12/11/17 PAT BARRON MS, RDN Addendum: 12/09/17 at [address] NOTE PATIENT HAS BEEN RESECREENED AND RECATEGORIZED HIGH NUTRITION RISK D/T SEPSIS DIAGNOSIS. PATIENT WILL BE SEEN AND ASSESSED WITHIN 1-2 DAYS OF ADMISSION 12/08/17 -12/09/[address]
--- NOTE | 2017-12-08 07:11 | NUR ---
ENDORSED PT TO DAY SHIFT NURSE FOR CONTINUITY OF CARE. PT IN STABLE CONDITION.
--- NOTE | 2017-12-08 07:12 | NUR ---
RECEIVED REPORT FROM NIGHT RN AT PT BEDSIDE. PATIENT IS ALERT AND ORIENTED, FOLLOWS COMMANDS. DENIES PAIN. NO ACUTE DISTRESS NOTED, ON ROOM AIR. CALL LIGHT WITHIN REACH. MADE AWARE OF CURRENT PLAN OF CARE, IN AGREEMENT.
[2017-12-08 07:16] LABS: LYMPHOCYTES % (MANUAL) 10 % (20-46); MONOCYTES % (MANUAL) 3 % (5-12)
[2017-12-08 07:17] LABS: BASOPHILS % (MANUAL) 0 % (0-2); EOSINOPHILS % (MANUAL) 0 % (0-4)
[2017-12-08 08:00] VITALS: BP 127/87
[2017-12-08] MEDS ORDERED: methylPREDNISolone SS 125 MG in WATER STERILE 2 ML IV SCH (08:00)
[2017-12-08 08:21] LABS: BILIRUBIN,URINE NEGATIVE (NEGATIVE); BLOOD, URINE TRACE-I (NEGATIVE); COLOR,URINE YELLOW (YELLOW); LEUKOCYTE ESTERASE ,URINE NEGATIVE (NEGATIVE); NITRITE, URINE NEGATIVE (NEGATIVE); UGLUCOSE NEGATIVE (NEGATIVE)
[2017-12-08 08:25] LABS: APPEARANCE,URINE SLIGHTLY HAZY (CLEAR)
[2017-12-08 08:32] LABS: RBC,URINE 3-10 (FEW) /HPF (0-5); WBC,URINE 0-5 (RARE) /HPF (0-5)
[2017-12-08 08:45] LABS: BARBITURATE, URINE NEG. ng/ml (NEG <=200); BENZODIAZEPINE, URINE NEG. ng/mL (NEG <=200); CANNABINOID, URINE NEG. ng/mL (NEG <=50); COCAINE, URINE NEG. ng/mL (NEG <=300); OPIATE, URINE POS. ng/mL (NEG <=2000); PHENCYCLIDINE SCREEN,URINE NEG. ng/mL (NEG <=25)
--- NOTE | 2017-12-08 10:20 | NUR ---
PATIENT AMBULATORY TO BATHROOM. NO ACUTE DISTRESS NOTED. DENIES PAIN.
[2017-12-08] MEDS: FAMOTIDINE 20 MG TAB PO SCH (10:36)
[2017-12-08] MEDS: MONTELUKAST SODIUM 10 MG TAB PO SCH (10:36)
[2017-12-08 12:00] VITALS: BP 119/67
[2017-12-08] MEDS: methylPREDNISolone SS 125 MG/2 ML VIAL IVP SCH ×2 (12:13→20:08)
[2017-12-08] MEDS: NACL 0.9% 1,000 ML IV SCH (12:13)
--- NOTE | 2017-12-08 12:20 | NUR ---
PATIENT SLEEPING, EASILY AWAKENS. DENIES DISCOMFORT.
--- NOTE | 2017-12-08 15:03 | NUR ---
PATIENT RESTING IN BED. ALL NEEDS MET. NO ACUTE DISTRESS NOTED.
[2017-12-08 16:00] VITALS: BP 119/75
--- NOTE | 2017-12-08 16:00 | NUR ---
PATIENT CONTINUES TO HAVE BILATERAL WHEEZES. NO ACUTE DISTRESS NOTED. DENIES DISCOMFORT AT THIS TIME. PATIENT TO HAVE SCHEDULED BREATHING TREATMENT.
[2017-12-08 16:54] LABS: IRON, SERUM 47 ug/dl (35-150)
[2017-12-08 16:55] LABS: TOTAL IRON BINDING CAPACITY 343 ug/dl (250-450)
--- NOTE | 2017-12-08 19:10 | NUR ---
RECEIVED REPORT AT PT BEDSIDE. PT IN STABLE CONDITION. PT IS A/O X4. PT ON RA. PT HAS NONPRODUCTIVE COUGH AND WHEEZING LUNG SOUNDS. SKIN IS INTACT. IV ACCESS IN L FA 20G WITH IVF RUNNING PER MD ORDERS. NO C/O PAIN AT THIS TIME. BED IS LOCKED, LOWEST POSTION WITH SIDE RAILS UP X2. CALL LIGHT IS WITHIN REACH. BOARD UPDATED. WILL CONTINUE TO MONITOR.
--- NOTE | 2017-12-08 19:10 | NUR ---
SBAR REPORT GIVEN TO RN AT BEDSIDE. NO ACUTE DISTRESS NOTED, CONTINUED ON ROOM AIR.
[2017-12-08] MEDS ORDERED: ZOLPIDEM 5 MG TAB PO PRN (19:35)
[2017-12-08 20:00] VITALS: BP 110/69
--- NOTE | 2017-12-08 20:08 | NUR ---
D/T INABILITY TO SLEEP PT REQUESTED MEDICINE. FIOR GIVEN.
--- NOTE | 2017-12-08 22:31 | NUR ---
PT IS ASLEEP IN BED. NO S/SX OF DISTRESS. WILL CONTINUE TO MONITOR.
[2017-12-09] VITALS: BP 117/74
[2017-12-09] MEDS ORDERED: methylPREDNISolone SS 40 MG in WATER STERILE 1 ML MC SCH ×2
--- NOTE | 2017-12-09 00:15 | NUR ---
PT VS WITHIN NORMAL LIMITS. PT IS ASLEEP IN BED. NO S/SX OF DISTRESS. WILL CONTINUE TO MONITOR PT.
--- NOTE | 2017-12-09 02:13 | NUR ---
PT ASLEEP IN BED. NO S/SX OF DISTRESS. WILL CONTINUE TO MONITOR.
[2017-12-09 04:00] VITALS: BP 125/73
[2017-12-09] MEDS: methylPREDNISolone SS 40 MG/ML VIAL IVP SCH ×2 (04:14→13:17)
[2017-12-09] MEDS: NACL 0.9% 1,000 ML IV SCH (04:15)
--- NOTE | 2017-12-09 04:15 | NUR ---
PT VS WITHIN NORMAL LIMITS. NO S/SX OF DISTRESS. WILL CONTINUE TO MONITOR PT.
--- NOTE | 2017-12-09 06:04 | NUR ---
PT ASLEEP IN BED. NO S/SX OF DISTRESS. WILL CONTINUE TO MONITOR.
[2017-12-09] MEDS: ALBUTEROL SULFATE/IPRATROPIU 3 ML SOL IH SCH ×2 (06:41→12:57)
[2017-12-09] MEDS: BUDESONIDE 0.5 MG/2 ML NEBU INH SCH (06:51)
[2017-12-09 07:11] LABS: HEMATOCRIT 38.1 % (36-48); HEMOGLOBIN 12.3 g/dL (12.0-16.0); MEAN CORPUSCULAR HEMOGLOBIN 26 pg (27-31); MEAN CORPUSCULAR HGB CONC 32 g/dL (33-37); MEAN CORPUSCULAR VOLUME 79.3 fL (80-94); PLATELET COUNT (AUTO) 251 K/uL (140-450); RED CELL DISTRIBUTION WIDTH 14.5 % (11.6-13.7); WHITE BLOOD COUNT (AUTO) 21.4 K/uL (4.8-10.8)
--- NOTE | 2017-12-09 07:16 | NUR ---
ENDORSED PT TO DAY SHIFT NURSE FOR CONTINUITY OF CARE. PT IN STABLE CONDITION.
--- NOTE | 2017-12-09 07:19 | NUR ---
RECEIVED REPORT FROM ASSOCIATE PROFESSOR OF SURGERY NURSE, PATIENT IS IN BED AAOX4, PATIENT DENIES PAIN, VS ARE WITHIN NORMAL LIMITS, O2 SATURATION OF 100%, WHEEZING NOTED AT EXPIRATION, HEART SOUNDS ARE REGULAR, SKIN IS CLEAN AND INTACT, PATIENT IS ABLE TO AMBULATE WITHOUT ASSISTANCE TO THE RESTROOM, DISCUSSED PLAN OF CARE WITH PATIENT, PATIENT STATES UNDERSTANDING. BED IN LOWEST POSITION, TABLE AND CALL LIGHT WITHIN REACH, WILL CONTINUE TO MONITOR.
--- NOTE | 2017-12-09 07:19 | NUR ---
ENDORSED PT TO DAY SHIFT NURSE FOR CONTINUITY OF CARE. PT IN STABLE CONDITION.
[2017-12-09 07:24] LABS: ANION GAP 11.6 (8-16); CARBON DIOXIDE 24.4 mmol/L (21-32); CREATININE 0.7 mg/dL (0.6-1.3)
[2017-12-09 07:49] LABS: MAGNESIUM 2.2 mg/dL (1.8-2.4); PHOSPHORUS 2.3 mg/dL (2.5-4.9)
[2017-12-09 08:08] LABS: LYMPHOCYTES % (MANUAL) 7 % (20-46); MONOCYTES % (MANUAL) 6 % (5-12)
[2017-12-09] MEDS ORDERED: BUDE1AER IH (08:21)
[2017-12-09] MEDS ORDERED: TIOT18CA2 IH (08:21)
[2017-12-09] MEDS: MONTELUKAST SODIUM 10 MG TAB PO SCH (08:47)
[2017-12-09] MEDS: FAMOTIDINE 20 MG TAB PO SCH (08:47)
[2017-12-09] MEDS ORDERED: METH4TAB3 PO (09:13)
[2017-12-09] MEDS ORDERED: PANT20EC PO (09:21)
[2017-12-09 10:07] LABS: TRANSFERRIN 277 mg/dL (200-370)
[2017-12-09 10:08] VITALS: BP 132/86
--- NOTE | 2017-12-09 13:30 | NUR ---
PT RESTING IN BED, RECEIVING BREATHING TREATMENT, CALL LIGHT IS WITHIN REACH, WILL CONTINUE TO MONITOR.
--- NOTE | 2017-12-09 15:10 | NUR ---
DISCHARGE INSTRUCTIONS GIVEN, PT IV REMOVED, CATHETER TIP INTACT, ID WRIST BAND REMOVED. PT STABLE UPON DISCHARGE ACCOMPANIED BY FRIEND.
[2017-12-10 06:16] LABS: FERRITIN 32 ng/mL (15-150)
[2017-12-10 06:16] LABS: T4 (THYROXINE) 7.4 ug/dL (4.5-12.0)
== END 2017-12-09 15:10 | disposition home or self-care (01) | DRG 720 ==
LOC: MED 15:04 → MTU 17:53
PROVIDERS: ADMIT General Practice; ATTEND General Practice
DX: A41.9 Sepsis, unspecified organism (principal); J18.9 Pneumonia, unspecified organism; E44.0 Moderate protein-calorie malnutrition; J45.901 Unspecified asthma with (acute) exacerbation; E66.01 Morbid (severe) obesity due to excess calories; K21.9 Gastro-esophageal reflux disease without esophagitis; J20.9 Acute bronchitis, unspecified; I10 Essential (primary) hypertension; T38.0X5A Adverse effect of glucocorticoids and synthetic analogues, initial encounter; E86.0 Dehydration; E05.80 Other thyrotoxicosis without thyrotoxic crisis or storm; R06.03 Acute respiratory distress; Z68.36 Body mass index [BMI] 36.0-36.9, adult; Z87.01 Personal history of pneumonia (recurrent); Z79.899 Other long term (current) drug therapy; Z80.8 Family history of malignant neoplasm of other organs or systems; Z82.5 Family history of asthma and other chronic lower respiratory diseases; Z71.3 Dietary counseling and surveillance; Y92.89 Other specified places as the place of occurrence of the external cause
CPT/HCPCS: 36415; 71045; 80048; 80053; 80305; 81001; 81025; 82150; 82728; 83036; 83540; 83605; 83690; 83735; 83880; 84100; 84436; 84439; 84443; 84479; 85025; 85379; 85610; 85730; 87040; 87081; 93005; 94640; 96365; 96372; 96375; 99285; J0696; J1100; J1200; J1956; J2920; J2930; J7030; J7060; J7620; J7626; Q0092

== ENCOUNTER 2018-04-17 14:15 | Inpatient (IN) | payer MEDICAID ==
[~2018-04-17] VITALS: Ht 157.5 cm; Wt 70.3 kg
[~2018-04-17 14:15] MED LIST changes: -ACET-9529 PO; -AZIT250T3 PO; +BUDE1AER IH; -BUDE1AER2 IH; -DOCU-299 PO; -GUAI-646 PO; -LACT1.4C PO; +METH4TAB3 PO; +PANT20EC PO; -PRED20TA5 PO; +TIOT18CA2 IH
[2018-04-17 14:20] VITALS: BP 122/72
[2018-04-17] MEDS ORDERED: IPRATROPIUM 0.02% 0.5 MG/2.5 ML NEBU INH ONE (14:25)
[2018-04-17] MEDS ORDERED: ALBUTEROL SULFATE/IPRATROPIU 3 ML SOL IH ONE (14:25)
[2018-04-17] MEDS ORDERED: predniSONE 20 MG TAB PO ONE (14:35)
[2018-04-17] MEDS ORDERED: ALBUTEROL 0.083% 2.5 MG/3 ML NEBU INH ONE ×3 (14:50→18:00)
[2018-04-17] MEDS ORDERED: methylPREDNISolone SS 125 MG/2 ML VIAL IVP ONE (15:40)
[2018-04-17] MEDS ORDERED: MAG SULF 2000 MG/WATER PREMIX 50 ML IV ONE (15:40)
[2018-04-17] MEDS ORDERED: ACETAMINOPHEN 325 MG TAB PO PRN (17:15)
[2018-04-17] MEDS ORDERED: LORazepam 2 MG/ML VIAL IM/IVP PRN (17:15)
[2018-04-17] MEDS ORDERED: ZOLPIDEM 5 MG TAB PO PRN (17:15)
[2018-04-17] MEDS ORDERED: ONDANSETRON 4 MG/2 ML VIAL IM/IVP PRN (17:15)
[2018-04-17] MEDS ORDERED: DOCUSATE SODIUM 100 MG GELCAP PO PRN (17:15)
[2018-04-17] MEDS ORDERED: ALBUTEROL SULFATE/IPRATROPIU 3 ML SOL IH PRN (17:20)
[2018-04-17 18:30] LABS: BASOPHILS % (AUTO) 0.1 % (0.0-2.0); EOSINOPHILS % (AUTO) 0.4 % (0.0-4.0); HEMATOCRIT 43.1 % (36-48); HEMOGLOBIN 13.8 g/dL (12.0-16.0); LYMPHOCYTES # (AUTO) 0.5 K/uL (2.5-16.5); LYMPHOCYTES % (AUTO) 4.7 % (20.5-51.1); MEAN CORPUSCULAR HEMOGLOBIN 25 pg (27-31); MEAN CORPUSCULAR HGB CONC 32 g/dL (33-37); MEAN CORPUSCULAR VOLUME 78.1 fL (80-94); MONOCYTES # (AUTO) 0.1 K/uL (0.8-1.0); MONOCYTES % (AUTO) 0.6 % (1.7-9.3); NEUTROPHILS # (AUTO) 9.1 K/uL (1.8-7.7); NEUTROPHILS % (AUTO) 94.2 % (42.2-75.2); PLATELET COUNT (AUTO) 246 K/uL (140-450); RED BLOOD CELL COUNT(AUTO) 5.52 MIL/uL (4.20-5.40); RED CELL DISTRIBUTION WIDTH 16.2 % (11.6-13.7); WHITE BLOOD COUNT (AUTO) 9.7 K/uL (4.8-10.8)
[2018-04-17 18:46] LABS: ANION GAP 17.5 (8-16); CREATININE 0.7 mg/dL (0.6-1.3); POTASSIUM 3.5 mmol/L (3.5-5.1)
[2018-04-17 18:52] LABS: ALBUMIN 3.3 g/dL (3.4-5.0); TOTAL BILIRUBIN 0.3 mg/dL (0.0-1.0)
[2018-04-17 19:01] LABS: CHOL/HDL RATIO 3.5 (1-4.5); MAGNESIUM 2.3 mg/dL (1.8-2.4); PHOSPHORUS 2.2 mg/dL (2.5-4.9); THYROID STIMULATING HORMONE 0.53 uIU/mL (0.34-3.74)
[2018-04-17] MEDS: ALBUTEROL SULFATE/IPRATROPIU 3 ML SOL IH SCH (19:24)
[2018-04-17 20:00] VITALS: BP 105/60
[2018-04-17] MEDS: methylPREDNISolone SS 125 MG/2 ML VIAL IVP SCH (20:14)
[2018-04-17] MEDS ORDERED: methylPREDNISolone SS 40 MG in WATER STERILE 1 ML IV SCH (21:00)
[2018-04-17] MEDS: NACL 0.9% 1,000 ML IV SCH (22:41)
[2018-04-18] VITALS: BP 114/60
[2018-04-18 04:00] VITALS: BP 106/65
[2018-04-18] MEDS: methylPREDNISolone SS 125 MG/2 ML VIAL IVP SCH ×2 (04:08→12:11)
[2018-04-18 06:25] LABS: T4 (THYROXINE) 11.4 ug/dL (4.5-12.0)
[2018-04-18 06:45] LABS: EOSINOPHILS % (AUTO) 0.1 % (0.0-4.0); HEMATOCRIT 40.1 % (36-48); HEMOGLOBIN 12.9 g/dL (12.0-16.0); LYMPHOCYTES % (AUTO) 7.9 % (20.5-51.1); MEAN CORPUSCULAR HEMOGLOBIN 25 pg (27-31); MEAN CORPUSCULAR HGB CONC 32 g/dL (33-37); MEAN CORPUSCULAR VOLUME 77.9 fL (80-94); MONOCYTES # (AUTO) 0.2 K/uL (0.8-1.0); MONOCYTES % (AUTO) 1.7 % (1.7-9.3); NEUTROPHILS # (AUTO) 11.4 K/uL (1.8-7.7); NEUTROPHILS % (AUTO) 90.3 % (42.2-75.2); PLATELET COUNT (AUTO) 257 K/uL (140-450); RED BLOOD CELL COUNT(AUTO) 5.15 MIL/uL (4.20-5.40); RED CELL DISTRIBUTION WIDTH 16.4 % (11.6-13.7); WHITE BLOOD COUNT (AUTO) 12.6 K/uL (4.8-10.8)
[2018-04-18 07:03] LABS: CARBON DIOXIDE 25.3 mmol/L (21-32); CREATININE 0.6 mg/dL (0.6-1.3); POTASSIUM 4.3 mmol/L (3.5-5.1)
[2018-04-18] MEDS: ALBUTEROL SULFATE/IPRATROPIU 3 ML SOL IH SCH ×3 (07:14→18:46)
[2018-04-18 07:17] LABS: MAGNESIUM 1.1 mg/dL (1.8-2.4); PHOSPHORUS 3.3 mg/dL (2.5-4.9)
[2018-04-18 08:00] VITALS: BP 111/61
[2018-04-18] MEDS: SODIUM PHOS / POTASSIUM PHOS 1 PKT PDR PO SCH ×3 (09:36→17:30)
[2018-04-18] MEDS: MONTELUKAST SODIUM 10 MG TAB PO SCH (09:36)
[2018-04-18] MEDS: NACL 0.9% 1,000 ML IV SCH (09:38)
[2018-04-18] MEDS ORDERED: MAG SULF 2000 MG/WATER PREMIX 100 ML IV SCH (11:00)
[2018-04-18] MEDS ORDERED: MAG SULF 2000 MG/WATER PREMIX 50 ML IV SCH (11:00)
[2018-04-18] MEDS: HYDROcodone/APAP 5/325 MG 1 TAB TAB PO PRN (11:18)
[2018-04-18 12:00] VITALS: BP 103/57
[2018-04-18 16:00] VITALS: BP 114/63
[2018-04-18 20:00] VITALS: BP 116/69
[2018-04-18] MEDS: methylPREDNISolone SS 40 MG/ML VIAL IVP SCH (21:13)
[2018-04-19] VITALS: BP 117/56
[2018-04-19] MEDS: NACL 0.9% 1,000 ML IV SCH (02:31)
[2018-04-19 04:00] VITALS: BP 129/74
[2018-04-19] MEDS: methylPREDNISolone SS 40 MG/ML VIAL IVP SCH ×2 (05:45→13:11)
[2018-04-19] MEDS: HYDROcodone/APAP 5/325 MG 1 TAB TAB PO PRN (05:48)
[2018-04-19 06:40] LABS: EOSINOPHILS % (AUTO) 0.1 % (0.0-4.0); LYMPHOCYTES # (AUTO) 1.4 K/uL (2.5-16.5); LYMPHOCYTES % (AUTO) 8.5 % (20.5-51.1); MEAN CORPUSCULAR HEMOGLOBIN 25 pg (27-31); MEAN CORPUSCULAR HGB CONC 32 g/dL (33-37); MEAN CORPUSCULAR VOLUME 78.7 fL (80-94); MONOCYTES # (AUTO) 0.7 K/uL (0.8-1.0); MONOCYTES % (AUTO) 4.1 % (1.7-9.3); NEUTROPHILS # (AUTO) 14.7 K/uL (1.8-7.7); NEUTROPHILS % (AUTO) 87.3 % (42.2-75.2); PLATELET COUNT (AUTO) 296 K/uL (140-450); RED BLOOD CELL COUNT(AUTO) 5.21 MIL/uL (4.20-5.40); RED CELL DISTRIBUTION WIDTH 16.6 % (11.6-13.7); WHITE BLOOD COUNT (AUTO) 16.8 K/uL (4.8-10.8)
[2018-04-19 07:10] LABS: ANION GAP 11.2 (8-16); CREATININE 0.6 mg/dL (0.6-1.3); POTASSIUM 4.2 mmol/L (3.5-5.1)
[2018-04-19] MEDS: ALBUTEROL SULFATE/IPRATROPIU 3 ML SOL IH SCH ×3 (07:10→20:19)
[2018-04-19 07:13] LABS: MAGNESIUM 2.3 mg/dL (1.8-2.4); PHOSPHORUS 3.4 mg/dL (2.5-4.9)
[2018-04-19 08:00] VITALS: BP_SYST 107; BP_SYST 152; BP_DIAS 64; BP_DIAS 91
[2018-04-19] MEDS ORDERED: SPIR50TA PO (09:27)
[2018-04-19] MEDS ORDERED: METO50TA20 PO (09:27)
[2018-04-19] MEDS ORDERED: BUDESONIDE 0.5 MG/2 ML NEBU INH SCH (10:00)
[2018-04-19] MEDS ORDERED: METOPROLOL 25 MG TAB PO SCH ×2 (10:00→21:00)
[2018-04-19] MEDS ORDERED: SPIRONOLACTONE 25 MG TAB PO SCH (10:00)
[2018-04-19] MEDS: SODIUM PHOS / POTASSIUM PHOS 1 PKT PDR PO SCH ×3 (10:32→18:16)
[2018-04-19] MEDS: MONTELUKAST SODIUM 10 MG TAB PO SCH (10:32)
[2018-04-19 12:00] VITALS: BP 121/76
[2018-04-19 16:00] VITALS: BP 129/78
[2018-04-19] MEDS: BUDESONIDE 0.5 MG/2 ML NEBU INH SCH (20:18)
[2018-04-20] VITALS: BP 119/59
[2018-04-20] MEDS: ALBUTEROL SULFATE/IPRATROPIU 3 ML SOL IH SCH ×2 (07:02→13:15)
[2018-04-20] MEDS: BUDESONIDE 0.5 MG/2 ML NEBU INH SCH (07:02)
[2018-04-20 07:37] LABS: BASOPHILS % (AUTO) 0.1 % (0.0-2.0); EOSINOPHILS # (AUTO) 0.1 K/uL (0-0.4); EOSINOPHILS % (AUTO) 0.5 % (0.0-4.0); HEMATOCRIT 39.3 % (36-48); HEMOGLOBIN 12.3 g/dL (12.0-16.0); LYMPHOCYTES # (AUTO) 3.2 K/uL (2.5-16.5); LYMPHOCYTES % (AUTO) 24.5 % (20.5-51.1); MEAN CORPUSCULAR HEMOGLOBIN 25 pg (27-31); MEAN CORPUSCULAR HGB CONC 31 g/dL (33-37); MEAN CORPUSCULAR VOLUME 78.9 fL (80-94); MONOCYTES # (AUTO) 0.9 K/uL (0.8-1.0); MONOCYTES % (AUTO) 7.3 % (1.7-9.3); NEUTROPHILS # (AUTO) 8.7 K/uL (1.8-7.7); NEUTROPHILS % (AUTO) 67.6 % (42.2-75.2); PLATELET COUNT (AUTO) 247 K/uL (140-450); RED BLOOD CELL COUNT(AUTO) 4.99 MIL/uL (4.20-5.40); RED CELL DISTRIBUTION WIDTH 16.3 % (11.6-13.7); WHITE BLOOD COUNT (AUTO) 12.9 K/uL (4.8-10.8)
[2018-04-20 08:00] VITALS: BP 106/67
[2018-04-20 08:19] LABS: ANION GAP 7.5 (8-16); CARBON DIOXIDE 30.8 mmol/L (21-32); CREATININE 0.5 mg/dL (0.6-1.3); POTASSIUM 4.3 mmol/L (3.5-5.1)
[2018-04-20] MEDS ORDERED: ALBU-71 NEB (08:43)
[2018-04-20] MEDS ORDERED: ALBU3SOL83 IH (08:43)
[2018-04-20] MEDS ORDERED: METH4TAB3 PO (08:43)
[2018-04-20] MEDS ORDERED: SPIRONOLACTONE 25 MG TAB PO SCH (09:00)
[2018-04-20] MEDS ORDERED: INFLUENZA VIRUS VACCINE QUAD 0.5 ML SYR IMVAC PRN (09:40)
[2018-04-20] MEDS: MONTELUKAST SODIUM 10 MG TAB PO SCH (10:04)
[2018-04-20] MEDS: SODIUM PHOS / POTASSIUM PHOS 1 PKT PDR PO SCH (10:05)
== END 2018-04-20 14:10 | disposition home or self-care (01) | DRG 141 ==
LOC: MED 14:15 → MTU 17:16
PROVIDERS: ADMIT General Practice; ATTEND General Practice
DX: J45.902 Unspecified asthma with status asthmaticus (principal); E44.1 Mild protein-calorie malnutrition; E83.39 Other disorders of phosphorus metabolism; E83.42 Hypomagnesemia; R73.9 Hyperglycemia, unspecified; K21.9 Gastro-esophageal reflux disease without esophagitis; E78.5 Hyperlipidemia, unspecified; D72.829 Elevated white blood cell count, unspecified; T38.0X5A Adverse effect of glucocorticoids and synthetic analogues, initial encounter; F43.9 Reaction to severe stress, unspecified; Z68.28 Body mass index [BMI] 28.0-28.9, adult; Z79.899 Other long term (current) drug therapy; Z80.8 Family history of malignant neoplasm of other organs or systems; Z82.5 Family history of asthma and other chronic lower respiratory diseases; Y92.89 Other specified places as the place of occurrence of the external cause; Z23 Encounter for immunization
CPT/HCPCS: 36415; 36600; 71045; 80048; 80053; 82150; 83036; 83690; 83735; 83880; 84100; 84134; 84436; 84443; 84484; 85025; 85610; 85730; 87081; 90658; 94640; 94644; 94761; 96365; 96366; 96375; 99285; J2920; J2930; J3475; J7030; J7512; J7613; J7620; J7626; J7644; Q0092

== ENCOUNTER 2018-06-19 14:55 | Inpatient (IN) | payer MEDICAID ==
[~2018-06-19] VITALS: Ht 157.5 cm; Wt 76.2 kg
--- NOTE | 2018-06-19 14:55 | NUR ---
38/F BIBA FROM HOME C/O COUGH X 2WEEKS & SOB X TODAY, ON HHN ON ARRIVAL. SKIN IS PINK/WARM/DRY; AAOX4 WITH EVEN AND STEADY GAIT; LUNGS WHEEZING BL. PATIENT STATES PAIN OF 0/10 AT THIS TIME. PATIENT POSITIONED FOR COMFORT; HOB ELEVATED; BEDRAILS UP X2; BED DOWN. ER MD MADE AWARE OF PT STATUS.
[2018-06-19 14:57] VITALS: BP 128/76
--- NOTE | 2018-06-19 14:57 | NUR ---
Patient being evaluated by DR ZABALA at bedside.
[2018-06-19] MEDS ORDERED: ALBUTEROL SULFATE/IPRATROPIU 3 ML SOL IH ONE ×2 (15:05→15:55)
--- NOTE | 2018-06-19 15:08 | NUR ---
RT AT BEDSIDE FOR BREATHING TREATMENT.
--- NOTE | 2018-06-19 15:08 | NUR ---
ADMITTING DX: ADULT-ASTHMA AWAKE AND ALERT VERBALLY RESPONSIVE HHN THERAPY AND RESPORATORY DRUG GIVEN ORDERED PEAK FLOW METTER: before 80 l/m after 110 l/m POST HHN THERAP PLACED ON SUPPLEMENTAL OXYGEN AT 2 LPM VIA NC PALLAVI/RN NOTIFIED
[2018-06-19] MEDS ORDERED: methylPREDNISolone SS 125 MG/2 ML VIAL IVP ONE (15:15)
--- NOTE | 2018-06-19 16:22 | NUR ---
FOLLOW UP HHN THERAPY AND RESPIRATORY DRUG GIVEN ORDERED PEAK FLOW METER: before 60 l/p after 110 l/m
[2018-06-19] MEDS ORDERED: MAG SULF 2000 MG/WATER PREMIX 50 ML IV ONE (16:35)
[2018-06-19] MEDS ORDERED: ALBUTEROL 0.083% 2.5 MG/3 ML NEBU INH ONE (18:05)
--- NOTE | 2018-06-19 18:08 | NUR ---
RT AT BEDSIDE FOR BREATHING TREATMENT.
[2018-06-19] MEDS ORDERED: HYDROcodone/APAP 5/325 MG 1 TAB TAB PO PRN (18:10)
[2018-06-19] MEDS ORDERED: LORazepam 2 MG/ML VIAL IM/IVP PRN (18:10)
[2018-06-19] MEDS ORDERED: MORPHINE SULFATE 2 MG/ML SYR IVP PRN (18:10)
[2018-06-19] MEDS ORDERED: ALBUTEROL SULFATE/IPRATROPIU 3 ML SOL IH PRN (18:10)
[2018-06-19] MEDS ORDERED: ACETAMINOPHEN 325 MG TAB PO PRN (18:10)
[2018-06-19] MEDS ORDERED: DOCUSATE SODIUM 100 MG GELCAP PO PRN (18:10)
[2018-06-19] MEDS ORDERED: ZOLPIDEM 5 MG TAB PO PRN (18:10)
--- NOTE | 2018-06-19 18:13 | NUR ---
LAB AT BEDSIDE.
[2018-06-19 18:28] LABS: BASOPHILS # (AUTO) 0.1 K/uL (0.00-0.22); BASOPHILS % (AUTO) 0.4 % (0.0-2.0); EOSINOPHILS # (AUTO) 0.2 K/uL (0-0.4); EOSINOPHILS % (AUTO) 1.3 % (0.0-4.0); HEMATOCRIT 40.9 % (36-48); HEMOGLOBIN 13.1 g/dL (12.0-16.0); LYMPHOCYTES # (AUTO) 1.5 K/uL (2.5-16.5); LYMPHOCYTES % (AUTO) 8.9 % (20.5-51.1); MEAN CORPUSCULAR HEMOGLOBIN 25 pg (27-31); MEAN CORPUSCULAR HGB CONC 32 g/dL (33-37); MONOCYTES # (AUTO) 0.4 K/uL (0.8-1.0); MONOCYTES % (AUTO) 2.6 % (1.7-9.3); NEUTROPHILS # (AUTO) 14.7 K/uL (1.8-7.7); NEUTROPHILS % (AUTO) 86.8 % (42.2-75.2); PLATELET COUNT (AUTO) 285 K/uL (140-450); RED BLOOD CELL COUNT(AUTO) 5.18 MIL/uL (4.20-5.40); WHITE BLOOD COUNT (AUTO) 16.9 K/uL (4.8-10.8)
--- NOTE | 2018-06-19 18:58 | NUR ---
Patient will be admitted to care of DR CLAYTON. Admited to TELE. Will go to room 111B. Belongings list completed. Report to RADHA VÁSQUEZ.
[2018-06-19 19:15] LABS: MAGNESIUM 2.5 mg/dL (1.8-2.4); PHOSPHORUS 2.7 mg/dL (2.5-4.9); THYROID STIMULATING HORMONE 0.48 uIU/mL (0.34-3.74)
[2018-06-19 19:20] VITALS: BP 111/63
[2018-06-19 19:21] LABS: PROTHROMBIN TIME 9.8 secs (10.8-13.4)
--- NOTE | 2018-06-19 19:25 | NUR ---
PATIENT IS AWAKE, ALERT, RESPIRATION EVEN UNLABORED ON O2 2L VIA NC. DENIES SHORTNESS OF BREATH OR PAIN. IV TO LEFT AC NOTED. SKIN IS INTACT, WARM, AND DRY. MRSA NARES SWAB. ORIENT THE PATIENT TO ROOM, STAFF, AND CALL LIGHT. ALL SAFETY MEASURE IN PLACE. PLAN OF CARE WAS DISCUSSED. BED IS AT LOWEST POSITION. CALL LIGHT WITHIN REACH.
[2018-06-19 19:53] LABS: ANION GAP 9.7 (8-16); CREATININE 0.7 mg/dL (0.6-1.3); POTASSIUM 3.7 mmol/L (3.5-5.1)
[2018-06-19 19:59] LABS: ALBUMIN 3.4 g/dL (3.4-5.0); TOTAL BILIRUBIN 0.5 mg/dL (0.0-1.0)
[2018-06-19] MEDS: NACL 0.9% 1,000 ML IV SCH (20:23)
[2018-06-19] MEDS: ALBUTEROL SULFATE/IPRATROPIU 3 ML SOL IH SCH (20:35)
[2018-06-19] MEDS: methylPREDNISolone SS 125 MG/2 ML VIAL IVP SCH (20:55)
--- NOTE | 2018-06-19 23:55 | NUR ---
PATIENT WAS AWAKE, ALERT, RESPIRATION EVEN UNLABORED ON O2 2L NC. COMPLAINED OF NAUSEOUS. PRN ZOFRAN WAS GIVEN PER ORDER. VITALS STABLE. CALL LIGHT WITHIN REACH. WILL CONTINUE TO MONITOR.
[2018-06-19] MEDS: ONDANSETRON 4 MG/2 ML VIAL IM/IVP PRN (23:56)
[2018-06-20] VITALS: BP 134/79
--- NOTE | 2018-06-20 | NUR ---
PATIENT IS SLEEPING RESPIRATION EVEN UNLABORED ON O2 2L NC. NO DISTRESS NOTED AT THIS TIME. CALL LIGHT WITHIN REACH. WILL CONTINUE TO MONITOR.
[2018-06-20 00:50] LABS: BARBITURATE, URINE NEG. ng/ml (NEG <=200); BENZODIAZEPINE, URINE NEG. ng/mL (NEG <=200); CANNABINOID, URINE NEG. ng/mL (NEG <=50); COCAINE, URINE NEG. ng/mL (NEG <=300); OPIATE, URINE NEG. ng/mL (NEG <=2000); PHENCYCLIDINE SCREEN,URINE NEG. ng/mL (NEG <=25)
[2018-06-20 00:52] LABS: APPEARANCE,URINE CLEAR (CLEAR); BILIRUBIN,URINE NEGATIVE (NEGATIVE); BLOOD, URINE TRACE-I (NEGATIVE); COLOR,URINE YELLOW (YELLOW); LEUKOCYTE ESTERASE ,URINE NEGATIVE (NEGATIVE); NITRITE, URINE NEGATIVE (NEGATIVE); UGLUCOSE NEGATIVE (NEGATIVE)
[2018-06-20 00:56] LABS: RBC,URINE 3-10 (FEW) /HPF (0-5); WBC,URINE 0-5 (RARE) /HPF (0-5)
[2018-06-20 04:00] VITALS: BP 125/81
[2018-06-20] MEDS: methylPREDNISolone SS 125 MG/2 ML VIAL IVP SCH ×2 (04:14→13:20)
[2018-06-20] MEDS: PANTOPRAZOLE 40 MG TABEC PO SCH (06:03)
[2018-06-20 06:04] LABS: BASOPHILS % (AUTO) 0.1 % (0.0-2.0); EOSINOPHILS % (AUTO) 0.1 % (0.0-4.0); HEMATOCRIT 40.3 % (36-48); LYMPHOCYTES # (AUTO) 1.3 K/uL (2.5-16.5); MEAN CORPUSCULAR HEMOGLOBIN 25 pg (27-31); MEAN CORPUSCULAR HGB CONC 32 g/dL (33-37); MEAN CORPUSCULAR VOLUME 78.4 fL (80-94); MONOCYTES # (AUTO) 0.2 K/uL (0.8-1.0); MONOCYTES % (AUTO) 1.1 % (1.7-9.3); NEUTROPHILS # (AUTO) 14.2 K/uL (1.8-7.7); NEUTROPHILS % (AUTO) 90.7 % (42.2-75.2); PLATELET COUNT (AUTO) 287 K/uL (140-450); RED BLOOD CELL COUNT(AUTO) 5.14 MIL/uL (4.20-5.40); RED CELL DISTRIBUTION WIDTH 15.3 % (11.6-13.7); WHITE BLOOD COUNT (AUTO) 15.7 K/uL (4.8-10.8)
[2018-06-20 06:48] LABS: ANION GAP 9.2 (8-16); CARBON DIOXIDE 28.9 mmol/L (21-32); CREATININE 0.5 mg/dL (0.6-1.3); POTASSIUM 4.1 mmol/L (3.5-5.1)
[2018-06-20 06:53] LABS: MAGNESIUM 2.4 mg/dL (1.8-2.4); PHOSPHORUS 3.3 mg/dL (2.5-4.9)
[2018-06-20 07:17] LABS: CHOL/HDL RATIO 3.7 (1-4.5)
[2018-06-20] MEDS: ALBUTEROL SULFATE/IPRATROPIU 3 ML SOL IH SCH ×3 (07:19→18:52)
--- NOTE | 2018-06-20 07:20 | NUR ---
ENDORSED PATIENT TO AM SHIFT FOR CONTINUITY OF CARE. PATIENT IS STABLE AT THIS TIME.
--- NOTE | 2018-06-20 07:21 | NUR ---
RECEIVED BEDSIDE REPORT FROM SAEED STEWART AND SAEED BURCH. PT STABLE, AWAKE, AND ALERT. ON EMPLOYEE BENEFITS SPECIALIST AND 2L NC. NO SIGNS OF DISTRESS NOTED. DENIES SOB OR PAIN. NO REDNESS, SWELLING, OR INFLAMMATION NOTED ON IV SITE. BED IN LOW POSITION. CALL BOWERS WITHIN REACH. SAFETY MEASURES IN PLACE. PLAN OF CARE REVIEWED
[2018-06-20 08:00] VITALS: BP 126/76
--- NOTE | 2018-06-20 08:15 | NUR ---
PATIENT HAS BEEN SCREENED AND CATEGORIZED MODERATE NUTRITION RISK. PATIENT WILL BE SEEN WITHIN 3-5 DAYS OF ADMISSION. 06/22/18[address]
[2018-06-20] MEDS ORDERED: PANTOPRAZOLE 40 MG TABEC PO SCH (09:00)
[2018-06-20] MEDS ORDERED: AZITHROMYCIN 500 MG in DEXTROSE 5% 250 ML IV SCH (09:00)
[2018-06-20] MEDS: FLUoxetine 20 MG CAP PO SCH (09:17)
[2018-06-20] MEDS: LACTOBACILLUS RHAMNOSUS GG 1 EACH CAP PO SCH (09:18)
[2018-06-20] MEDS: guaiFENesin 600 MG TABER PO SCH ×2 (09:18→20:52)
--- NOTE | 2018-06-20 09:45 | NUR ---
ADMINISTERED SCHEDULED MEDICATIONS. PT TOLERATED WELL. NO OTHER NEEDS AT THIS TIME.
[2018-06-20] MEDS: NACL 0.9% 1,000 ML IV SCH ×2 (10:46→15:24)
--- NOTE | 2018-06-20 11:53 | NUR ---
REPORTED LACTIC ACID 3.[address] POLLACK.
[2018-06-20] MEDS: ONDANSETRON 4 MG/2 ML VIAL IM/IVP PRN (11:58)
[2018-06-20 12:00] VITALS: BP 124/78
--- NOTE | 2018-06-20 12:02 | NUR ---
ADMINISTERED SCHEDULED MEDICATIONS AND PRN ZOFRAN FOR COMPLAINT OF NAUSEA. PT TOLERATED WELL.
--- NOTE | 2018-06-20 13:28 | NUR ---
ADMINISTERED SCHEDULED MEDICATIONS. PT TOLERATED WELL. NO OTHER NEEDS AT THIS TIME.
--- NOTE | 2018-06-20 15:35 | NUR ---
REPORTED LACTIC ACID 3.[address] SINCLAIR.
[2018-06-20 16:00] VITALS: BP 123/73
--- NOTE | 2018-06-20 16:27 | NUR ---
Trace Evidence Technician Note: I met with patient at bedside. Patient speaks Panamanian. Per patient, she lives at home with her 15 year old son and 12 year old daughter. I verified her brother's phone number, Jono Lee . She reported she goes to a clinic located in [place], [place] for her medical care. She is unable to recall name of clinic but provided me with clinic's phone number . She is independent with ADLs at home and does not use any DMEs. I provided her with a list of low cost clinics and counseling/mental health services. Financial Project Manager and/or Warp Dyeing Vat Tender will follow up as needed.
--- NOTE | 2018-06-20 17:15 | NUR ---
PT STABLE, SLEEPING, BUT EASILY AROUSABLE. NO SIGNS OF DISTRESS NOTED.
--- NOTE | 2018-06-20 19:10 | NUR ---
ENDORSED PT TO PRE BILLING SPECIALIST NURSE FOR CONTINUITY OF CARE. PT STABLE, AWAKE, AND ALERT.
--- NOTE | 2018-06-20 19:54 | NUR ---
RECEIVED REPORT FROM DAYSHIFT NURSE AT BEDSIDE FOR CONTINUITY OF CARE. PATIENT IS AWAKE, ALERT, RESPIRATION EVEN UNLABORED ON O2 2L VIA NC. DENIES PAIN OR SHORTNESS OF BREATH. SKIN IS WARM AND DRY. IV IS INTACT AND PATENT. PLAN OF CARE WAS DISCUSSED. BED IS AT LOWEST POSITION. CALL LIGHT WITHIN REACH.
[2018-06-20 20:00] VITALS: BP 117/71
--- NOTE | 2018-06-20 20:45 | NUR ---
PATIENT WAS AWAKE, ALERT, RESPIRATION EVEN UNLABORED ON O2 2L NC. DENIES PAIN. VITALS STABLE. MEDS WERE GIVEN PER ORDER. CALL LIGHT WITHIN REACH. WILL CONTINUE TO MONITOR.
[2018-06-20] MEDS: methylPREDNISolone SS 40 MG/ML VIAL IVP SCH (20:51)
[2018-06-20] MEDS: MONTELUKAST SODIUM 10 MG TAB PO SCH (20:52)
[2018-06-21] VITALS: BP 115/69
--- NOTE | 2018-06-21 00:15 | NUR ---
PATIENT IS SLEEPING COMFORTABLY RESPIRATION EVEN UNLABORED ON O2 2L NC. NO DISTRESS NOTED. BED IS AT LOW POSITION. CALL LIGHT WITHIN REACH.
[2018-06-21] MEDS: methylPREDNISolone SS 40 MG/ML VIAL IVP SCH ×2 (04:16→13:11)
[2018-06-21] MEDS: PANTOPRAZOLE 40 MG TABEC PO SCH (06:23)
[2018-06-21] MEDS: ALBUTEROL SULFATE/IPRATROPIU 3 ML SOL IH SCH ×3 (06:59→18:53)
[2018-06-21 07:15] LABS: HEMATOCRIT 37.6 % (36-48); HEMOGLOBIN 12.1 g/dL (12.0-16.0); MEAN CORPUSCULAR HEMOGLOBIN 25 pg (27-31); MEAN CORPUSCULAR HGB CONC 32 g/dL (33-37); MEAN CORPUSCULAR VOLUME 79.3 fL (80-94); PLATELET COUNT (AUTO) 289 K/uL (140-450); RED BLOOD CELL COUNT(AUTO) 4.74 MIL/uL (4.20-5.40); RED CELL DISTRIBUTION WIDTH 15.1 % (11.6-13.7); WHITE BLOOD COUNT (AUTO) 25.4 K/uL (4.8-10.8)
--- NOTE | 2018-06-21 07:29 | NUR ---
RECEIVED BEDSIDE REPORT FROM SAEED STEWART AND PRINCESS. PT STABLE, AWAKE, AND ALERT. NO SIGNS OF DISTRESS NOTED. DENIES PAIN OR SOB. NO REDNESS, SWELLING, OR INFLAMMATION NOTED ON IV SITE. BED IN LOW POSITION. CALL LIGHT WITHIN REACH. PLAN OF CARE REVIEWED.
--- NOTE | 2018-06-21 07:30 | NUR ---
ENDORSED PATIENT TO [facility] FOR CONTINUITY OF CARE. PATIENT IS STABLE AT THIS TIME.
[2018-06-21 07:35] LABS: ANION GAP 8.2 (8-16); CARBON DIOXIDE 27.9 mmol/L (21-32); CREATININE 0.6 mg/dL (0.6-1.3); POTASSIUM 4.1 mmol/L (3.5-5.1)
[2018-06-21 07:56] LABS: MAGNESIUM 2.2 mg/dL (1.8-2.4)
[2018-06-21 07:59] LABS: LYMPHOCYTES % (MANUAL) 6 % (20-46); MONOCYTES % (MANUAL) 6 % (5-12)
[2018-06-21 08:00] VITALS: BP 131/75
[2018-06-21] MEDS ORDERED: AZITHROMYCIN 250 MG TAB PO SCH (09:00)
[2018-06-21] MEDS: LACTOBACILLUS RHAMNOSUS GG 1 EACH CAP PO SCH (09:04)
[2018-06-21] MEDS: FLUoxetine 20 MG CAP PO SCH (09:05)
[2018-06-21] MEDS: guaiFENesin 600 MG TABER PO SCH ×2 (09:06→20:14)
--- NOTE | 2018-06-21 09:08 | NUR ---
ADMINISTERED SCHEDULED MEDICATIONS. PT TOLERATED WELL. NO OTHER NEEDS AT THIS TIME.
--- NOTE | 2018-06-21 11:15 | NUR ---
PT STABLE, AWAKE, AND ALERT TALKING ON THE PHONE. REVIEWED PLAN OF CARE WITH PATIENT.
[2018-06-21] MEDS ORDERED: FAMOTIDINE 20 MG TAB PO SCH (13:00)
[2018-06-21] MEDS ORDERED: LORATADINE 10 MG TAB PO SCH (13:01)
--- NOTE | 2018-06-21 13:17 | NUR ---
ADMINISTERED SCHEDULED MEDICATIONS. PT TOLERATED WELL. NO OTHER NEEDS AT THIS TIME.
--- NOTE | 2018-06-21 14:10 | NUR ---
PT STABLE, AWAKE, AND ALERT. FAMILY AT THE BEDSIDE.
[2018-06-21 16:00] VITALS: BP 131/76
--- NOTE | 2018-06-21 16:10 | NUR ---
VITAL SIGNS TAKEN, PT IN STABLE CONDITION, AWAKE, ALERT&O X4. DENIES SOB OR PAIN.
--- NOTE | 2018-06-21 17:46 | NUR ---
PT STABLE, SLEEPING, BUT EASILY AROUSABLE. NO SIGNS OF DISTRESS NOTED.
--- NOTE | 2018-06-21 19:05 | NUR ---
ENDORSED PT TO RN [facility] FOR CONTINUITY OF CARE. PT STABLE, AWAKE, AND ALERT.
--- NOTE | 2018-06-21 19:06 | NUR ---
RECEIVED BEDSIDE REPORT. PT IS A&OX4. PT ON RA. NO S/S OF DISTRESS. RT AT BEDSIDE. PT GETTING BREATHING TREATMENT. WHEEZING BILATERALLY. IV ON LAC 22G SALINE LOCK. PT IS AMBULATORY. SKIN INTACT. PLAN OF CARE DISCUSSED. CALL LIGHT WITHIN REACH. WILL CONTINUE TO MONITOR.
--- NOTE | 2018-06-21 20:14 | NUR ---
DUE MEDICATIONS GIVEN PT TOLERATED WELL. ALL NEEDS MET AT THIS TIME. WILL CONTINUE TO MONITOR.
[2018-06-21] MEDS: MONTELUKAST SODIUM 10 MG TAB PO SCH (20:15)
--- NOTE | 2018-06-21 22:42 | NUR ---
PT RESTING COMFORTABLY IN BED WATCHING TELEVISION. ALL NEEDS MET. CALL LIGHT WITHIN REACH.
[2018-06-21 23:44] VITALS: BP 122/66
--- NOTE | 2018-06-21 23:45 | NUR ---
VITAL SIGNS ARE WITHIN NORMAL LIMITS.CALL LIGHT WITHIN REACH. WILL CONTINUE TO MONITOR.
--- NOTE | 2018-06-22 01:08 | NUR ---
PT SLEEPING. NO S/S OF DISTRESS. SAFETY MEASURES ARE IN PLACE. CALL LIGHT WITHIN REACH.
--- NOTE | 2018-06-22 04:00 | NUR ---
PT IS SLEEPING COMFORTABLY IN BED. SAFETY MEASURES ARE IN PLACE.
[2018-06-22] MEDS: PANTOPRAZOLE 40 MG TABEC PO SCH (05:57)
[2018-06-22] MEDS: ALBUTEROL SULFATE/IPRATROPIU 3 ML SOL IH SCH ×3 (06:45→19:06)
[2018-06-22 07:14] LABS: HEMATOCRIT 37.4 % (36-48); HEMOGLOBIN 11.9 g/dL (12.0-16.0); MEAN CORPUSCULAR HEMOGLOBIN 25 pg (27-31); MEAN CORPUSCULAR HGB CONC 32 g/dL (33-37); MEAN CORPUSCULAR VOLUME 79.7 fL (80-94); PLATELET COUNT (AUTO) 259 K/uL (140-450); RED BLOOD CELL COUNT(AUTO) 4.69 MIL/uL (4.20-5.40); RED CELL DISTRIBUTION WIDTH 15.1 % (11.6-13.7); WHITE BLOOD COUNT (AUTO) 21.8 K/uL (4.8-10.8)
--- NOTE | 2018-06-22 07:16 | NUR ---
ENDORSED PT TO DAY SHIFT RN. PT IS IN STABLE CONDITION.
--- NOTE | 2018-06-22 07:21 | NUR ---
RECEIVED BEDSIDE REPORT FROM [employer]. PT IS A&OX4. PT ON RA. NO S/S OF DISTRESS. RT AT BEDSIDE. PT GETTING BREATHING TREATMENT. WHEEZING BILATERALLY. IV ON LAC 22G SALINE LOCK. PT IS AMBULATORY. SKIN INTACT. PLAN OF CARE DISCUSSED. CALL LIGHT WITHIN REACH. WILL CONTINUE TO MONITOR.
[2018-06-22 07:32] LABS: ANION GAP 6.9 (8-16); CARBON DIOXIDE 30.1 mmol/L (21-32); CREATININE 0.6 mg/dL (0.6-1.3)
[2018-06-22 07:55] LABS: BASOPHILS % (MANUAL) 0 % (0-2); EOSINOPHILS % (MANUAL) 0 % (0-4); LYMPHOCYTES % (MANUAL) 15 % (20-46); MONOCYTES % (MANUAL) 7 % (5-12)
[2018-06-22 08:00] VITALS: BP 119/77
[2018-06-22] MEDS: LACTOBACILLUS RHAMNOSUS GG 1 EACH CAP PO SCH (09:23)
[2018-06-22] MEDS: guaiFENesin 600 MG TABER PO SCH ×2 (09:23→20:31)
[2018-06-22] MEDS: FLUoxetine 20 MG CAP PO SCH (09:23)
[2018-06-22] MEDS: FAMOTIDINE 20 MG TAB PO SCH (09:23)
[2018-06-22] MEDS: LORATADINE 10 MG TAB PO SCH (09:24)
--- NOTE | 2018-06-22 09:25 | NUR ---
ADMINISTERED MORNING MEDS TO PT. PT TOLERATED THEM WELL. ALL NEEDS MET AT THIS TIME. NO COMPLAINTS OF PAIN OR DISTRESS AT THIS TIME. WILL CONTINUE TO ROUND FREQUENTLY.
--- NOTE | 2018-06-22 13:31 | NUR ---
PT RESTING IN BED. NO COMPLAINTS OF PAIN AT THIS TIME. WILL CONTINUE TO ROUND FREQUENTLY. BED IN LOW POSITION, CALL LIGHT WITHIN REACH
[2018-06-22] MEDS ORDERED: AZITHROMYCIN 500 MG in DEXTROSE 5% 250 ML IV SCH (15:00)
[2018-06-22 16:00] VITALS: BP 122/74
--- NOTE | 2018-06-22 19:31 | NUR ---
ENDORSED PT TO LICENSED EMBALMER FOR CONTINUITY OF CARE. PT IN STABLE CONDITION AT THIS TIME.
--- NOTE | 2018-06-22 19:32 | NUR ---
RECEIVED BEDSIDE REPORT. PT IS A&OX4. PT ON RA. NO S/S OF DISTRESS. PT PALESTINIAN SPEAKING. PT JUST RECEIVED BREATHING TREATMENT. IV ON LAC 22G SALINE LOCK. PT IS AMBULATORY. SKIN INTACT. PLAN OF CARE DISCUSSED. CALL LIGHT WITHIN REACH. WILL CONTINUE TO MONITOR.
[2018-06-22] MEDS: MONTELUKAST SODIUM 10 MG TAB PO SCH (20:31)
--- NOTE | 2018-06-22 20:31 | NUR ---
DUE MEDICATIONS GIVEN. PT TOLERATED WELL. ALL NEEDS MET AT THIS TIME. CALL LIGHT WITHIN REACH.
[2018-06-23] VITALS: BP 120/72
--- NOTE | 2018-06-23 | NUR ---
VS ARE WITHIN NORMAL LIMITS.ALL NEEDS MET AT THIS TIME. CALL LIGHT WITHIN REACH.
--- NOTE | 2018-06-23 02:30 | NUR ---
PT IS SLEEPING COMFORTABLY IN BED. NO S/S OF DISTRESS. SAFETY MEASURES ARE IN PLACE. CALL LIGHT WITHIN REACH.
--- NOTE | 2018-06-23 04:33 | NUR ---
PT IS SLEEPING COMFORTABLY IN BED. NO S/S OF DISTRESS. SAFETY MEASURES ARE IN PLACE. CALL LIGHT WITHIN REACH.
[2018-06-23] MEDS: PANTOPRAZOLE 40 MG TABEC PO SCH (06:01)
--- NOTE | 2018-06-23 06:01 | NUR ---
DUE MEDICATION GIVEN. PT TOLERATED WELL. ALL NEEDS MET AT THIS TIME.
[2018-06-23 06:23] LABS: BASOPHILS % (AUTO) 0.2 % (0.0-2.0); EOSINOPHILS # (AUTO) 0.5 K/uL (0-0.4); EOSINOPHILS % (AUTO) 3.4 % (0.0-4.0); HEMATOCRIT 39.3 % (36-48); HEMOGLOBIN 12.5 g/dL (12.0-16.0); LYMPHOCYTES # (AUTO) 5.1 K/uL (2.5-16.5); LYMPHOCYTES % (AUTO) 32.7 % (20.5-51.1); MEAN CORPUSCULAR HEMOGLOBIN 25 pg (27-31); MEAN CORPUSCULAR HGB CONC 32 g/dL (33-37); MEAN CORPUSCULAR VOLUME 78.9 fL (80-94); MONOCYTES % (AUTO) 6.1 % (1.7-9.3); NEUTROPHILS # (AUTO) 9.1 K/uL (1.8-7.7); NEUTROPHILS % (AUTO) 57.6 % (42.2-75.2); PLATELET COUNT (AUTO) 242 K/uL (140-450); RED BLOOD CELL COUNT(AUTO) 4.98 MIL/uL (4.20-5.40); RED CELL DISTRIBUTION WIDTH 15.2 % (11.6-13.7)
[2018-06-23 06:36] LABS: ANION GAP 7.7 (8-16); CARBON DIOXIDE 30.1 mmol/L (21-32); CREATININE 0.7 mg/dL (0.6-1.3); POTASSIUM 3.8 mmol/L (3.5-5.1)
[2018-06-23] MEDS: ALBUTEROL SULFATE/IPRATROPIU 3 ML SOL IH SCH ×2 (06:44→13:00)
[2018-06-23 07:02] LABS: WHITE BLOOD COUNT (AUTO) 15.7 K/uL (4.8-10.8)
--- NOTE | 2018-06-23 07:32 | NUR ---
ENDORSED PT TO DAY SHIFT RN. PT IS IN STABLE CONDITION.
--- NOTE | 2018-06-23 07:33 | NUR ---
Received bedside report from pm nurse Zuleika. Pt asleep in bed, respirations even & nonlabored, FLACC 0. Call light within reach.
[2018-06-23 08:00] VITALS: BP 119/78
[2018-06-23] MEDS: FAMOTIDINE 20 MG TAB PO SCH (09:04)
[2018-06-23] MEDS: LACTOBACILLUS RHAMNOSUS GG 1 EACH CAP PO SCH (09:04)
[2018-06-23] MEDS: guaiFENesin 600 MG TABER PO SCH (09:04)
[2018-06-23] MEDS: FLUoxetine 20 MG CAP PO SCH (09:05)
[2018-06-23] MEDS: LORATADINE 10 MG TAB PO SCH (09:05)
[2018-06-23] MEDS ORDERED: AZIT250T3 PO (11:38)
[2018-06-23] MEDS ORDERED: FLUO-348 PO (11:38)
[2018-06-23] MEDS ORDERED: FAMO20TA13 PO (11:38)
[2018-06-23] MEDS ORDERED: METH4TAB1 PO (11:40)
--- NOTE | 2018-06-23 11:45 | NUR ---
Pt resting in bed, awake, verbally responsive, no c/o discomfort, no signs of distress. Call light within reach. L ac IV intact & asymptomatic.
[2018-06-23] MEDS ORDERED: MONT10TA35 PO (12:00)
[2018-06-23] MEDS ORDERED: LORA10TA19 PO (12:00)
--- NOTE | 2018-06-23 14:00 | NUR ---
Written & verbal discharge instructions provided to pt, utilizing telephone flow trader Kayley #[id number]. Pt verbalized understanding & agree with dc meds & MD f/u. Left ac IV discontinued, no signs of complications.
--- NOTE | 2018-06-23 14:20 | NUR ---
Pt discharged to home at this time. Name band removed. Pt left via front lobby with steady gait, pt's family member in private car. All belongings with pt upon departure.
== END 2018-06-23 14:20 | disposition home or self-care (01) | DRG 720 ==
LOC: MED 14:55 → MTU 18:12
PROVIDERS: ADMIT General Practice; ATTEND General Practice
DX: A41.9 Sepsis, unspecified organism (principal); J18.9 Pneumonia, unspecified organism; E83.41 Hypermagnesemia; J45.901 Unspecified asthma with (acute) exacerbation; E83.51 Hypocalcemia; K21.9 Gastro-esophageal reflux disease without esophagitis; E66.9 Obesity, unspecified; Z68.31 Body mass index [BMI] 31.0-31.9, adult; Z71.3 Dietary counseling and surveillance; Z83.6 Family history of other diseases of the respiratory system; Z80.8 Family history of malignant neoplasm of other organs or systems; F41.9 Anxiety disorder, unspecified; F32.9 Major depressive disorder, single episode, unspecified
CPT/HCPCS: 36415; 36600; 71045; 71046; 80048; 80053; 80305; 81001; 82150; 82803; 83036; 83605; 83690; 83735; 83880; 84100; 84443; 85025; 85610; 85730; 87040; 87070; 87081; 87205; 89220; 93005; 94060; 94640; 96365; 96366; 96375; 99285; J0456; J0696; J2405; J2920; J2930; J3475; J7030; J7060; J7613; J7620; Q0092

== ENCOUNTER 2021-04-24 20:42 | Emergency (ER) | payer MEDICAID ==
[~2021-04-24] VITALS: Ht 157.5 cm; Wt 83.9 kg
[~2021-04-24 20:42] MED LIST changes: +ALBU0.0912 IH; +ALBU0.5S1 NEB; -ALBU3SOL83 IH; +AZIT250T3 PO; +CYCL-711 PO; -DEXT5SYR3 PO; +FAMO20TA13 PO; +FLUO-402 PO; +IBUP-2218 PO; +METH4TAB1 PO; -METH4TAB3 PO; -PANT20EC PO; +PHEN-1877 PO; +PRED10TA6 PO; +SULF-59 PO; -TIOT18CA2 IH
[2021-04-24 20:52] VITALS: BP 148/91
--- NOTE | 2021-04-24 21:16 | NUR ---
PT EVALUATED BY DR. KHAN.
[2021-04-24] MEDS ORDERED: KETOROLAC 30 MG/ML VIAL IM ONE (22:20)
--- NOTE | 2021-04-24 22:20 | NUR ---
SEE COMPLETE ASSESSMENT FOR ADDITIONAL INFORMATION.
[2021-04-24] MEDS ORDERED: IBUP-2213 PO (22:23)
[2021-04-24] MEDS ORDERED: METH-1681 PO (22:23)
[2021-04-24] MEDS ORDERED: ALBU0.0912 INH (22:33)
[2021-04-24] MEDS ORDERED: ALBUTEROL SULFATE/IPRATROPIU 3 ML SOL IH ONE (22:35)
[2021-04-24] MEDS ORDERED: DEXAMETHASONE 10 MG/ML VIAL IM ONE (22:35)
--- NOTE | 2021-04-24 22:59 | NUR ---
Patient discharged with v/s stable. Written and verbal after care instructions given and explained. Patient alert, oriented and verbalized understanding of instructions. Ambulatory with steady gait. All questions addressed prior to discharge. ID band removed. Patient advised to follow up with PMD. Rx of MOTRIN, ROBAXIN, AND ALBUTEROL given. Patient educated on indication of medication including possible reaction and side effects. Opportunity to ask questions provided and answered.
== END 2021-04-24 22:59 | disposition home or self-care (01) ==
LOC: MED 20:42 → MERGE 20:42 → MED 22:59
DX: R07.81 Pleurodynia (principal); J45.909 Unspecified asthma, uncomplicated
CPT/HCPCS: 71046; 81002; 81025; 94640; 96372; 99284; J1100; J1885

== ENCOUNTER 2021-05-06 10:00 | Emergency (ER) | payer MEDICAID ==
[~2021-05-06] VITALS: Ht 157.5 cm; Wt 78.5 kg
[~2021-05-06 10:00] MED LIST changes: +ALBU0.0912 INH; +IBUP-2213 PO; +METH-1681 PO
[2021-05-06 10:11] VITALS: BP 132/78
--- NOTE | 2021-05-06 10:15 | NUR ---
TO DANIEL Lang
[2021-05-06] MEDS ORDERED: ALBUTEROL 0.083% 2.5 MG/3 ML NEBU INH ONE ×2 (10:20→11:20)
[2021-05-06] MEDS ORDERED: predniSONE 20 MG TAB PO ONE (10:20)
[2021-05-06] MEDS ORDERED: ALBUTEROL SULFATE/IPRATROPIU 3 ML SOL IH ONE ×2 (10:20→11:20)
--- NOTE | 2021-05-06 10:25 | NUR ---
[facility] GIVEN ORDERED ENCOURAGED PATIENT FOR INTERMITTENT DEEP BREATHING DURING THERAPY
[2021-05-06] MEDS ORDERED: KETOROLAC 60 MG/2 ML VIAL IM ONE (11:20)
--- NOTE | 2021-05-06 11:38 | NUR ---
FOLLOW UP [facility] GIVEN ORDERED ENCOURAGED PATIENT FOR DEEPBREATHING DURING THERAPY
[2021-05-06] MEDS ORDERED: predniSONE 20 MG TAB ONE (12:21)
[2021-05-06] MEDS ORDERED: PRON INH (14:22)
[2021-05-06] MEDS ORDERED: ALBU0.0912 IH (14:22)
[2021-05-06] MEDS ORDERED: PRED20TA5 PO (14:22)
[2021-05-06 14:51] VITALS: BP 128/71
--- NOTE | 2021-05-06 14:51 | NUR ---
Patient discharged with v/s stable. Written and verbal after care instructions given FOR ASTHMA and explained. Patient alert, oriented and verbalized understanding of instructions. Ambulatory with steady gait. All questions addressed prior to discharge. ID band removed. Patient advised to follow up with PMD. Rx of ALBUTEROL, PROVENTIL, AND PREDNISONE given. Patient educated on indication of medication including possible reaction and side effects. Opportunity to ask questions provided and answered.
== END 2021-05-06 14:51 | disposition home or self-care (01) ==
LOC: MED 10:00
DX: J45.909 Unspecified asthma, uncomplicated (principal); Z79.899 Other long term (current) drug therapy
CPT/HCPCS: 71045; 94640; 96372; 99283; J1885; J7512; J7613

== ENCOUNTER 2021-07-22 20:00 | Emergency (ER) | payer MEDICAID ==
[~2021-07-22] VITALS: Ht 157.5 cm; Wt 63.5 kg
[~2021-07-22 20:00] MED LIST changes: +PRED20TA5 PO; +PRON INH
[2021-07-22 20:06] VITALS: BP 155/113
--- NOTE | 2021-07-22 20:13 | NUR ---
AMBULATED TO ED 9
--- NOTE | 2021-07-22 20:26 | NUR ---
Dr. Paz examining patient.
[2021-07-22 20:43] LABS: BASOPHILS % (AUTO) 0.2 % (0.0-2.0); EOSINOPHILS # (AUTO) 0.1 K/uL (0-0.4); EOSINOPHILS % (AUTO) 1.3 % (0.0-4.0); HEMATOCRIT 36.6 % (36-48); LYMPHOCYTES # (AUTO) 2.5 K/uL (2.5-16.5); LYMPHOCYTES % (AUTO) 22.3 % (20.5-51.1); MEAN CORPUSCULAR HEMOGLOBIN 27 pg (27-31); MEAN CORPUSCULAR HGB CONC 33 g/dL (33-37); MEAN CORPUSCULAR VOLUME 82.5 fL (80-94); MONOCYTES # (AUTO) 0.9 K/uL (0.8-1.0); MONOCYTES % (AUTO) 8.2 % (1.7-9.3); NEUTROPHILS # (AUTO) 7.5 K/uL (1.8-7.7); PLATELET COUNT (AUTO) 227 K/uL (140-450); RED BLOOD CELL COUNT(AUTO) 4.43 MIL/uL (4.20-5.40); RED CELL DISTRIBUTION WIDTH 14.1 % (11.6-13.7)
[2021-07-22] MEDS: IBUPROFEN 600 MG TAB PO ONE (20:57)
[2021-07-22] MEDS: ONDANSETRON 4 MG ODT PO ONE (20:57)
[2021-07-22 21:13] LABS: ALBUMIN 2.7 g/dL (3.4-5.0); ANION GAP 9.4 (8-16); CARBON DIOXIDE 30.5 mmol/L (21-32); CREATININE 0.6 mg/dL (0.6-1.3); POTASSIUM 3.9 mmol/L (3.5-5.1); TOTAL BILIRUBIN 0.2 mg/dL (0.0-1.0)
[2021-07-22] MEDS ORDERED: IBUP-2213 PO (22:44)
[2021-07-22 23:07] VITALS: BP 148/72
--- NOTE | 2021-07-22 23:07 | NUR ---
PATIENT CLEARED FOR DISHCARGE AT THIS TIME. ADVISED TO FOLLOW UP WITH PCP AND RETURN IF CONSITION WORSENS. NO OTHER COMPLAINTS OR CONECRNS AT THIS TIME FOLLOWING DIHSCARGE TEACHING.
== END 2021-07-22 23:07 | disposition home or self-care (01) ==
LOC: MED 20:00
DX: R07.89 Other chest pain (principal); R20.2 Paresthesia of skin; J45.909 Unspecified asthma, uncomplicated; Z79.899 Other long term (current) drug therapy
CPT/HCPCS: 36415; 71045; 80053; 84484; 85025; 93005; 99285; Q0162

== ENCOUNTER 2021-09-17 18:53 | Emergency (ER) | payer MEDICAID ==
[~2021-09-17] VITALS: Ht 155.4 cm; Wt 89.0 kg
[~2021-09-17 18:53] MED LIST changes: -ALBU0.5S1 NEB; -AZIT250T3 PO; +CEPH500C16 PO; -CYCL-711 PO; -FAMO20TA13 PO; -FLUO-402 PO; -IBUP-2213 PO; -IBUP-2218 PO; -METH-1681 PO; -METH4TAB1 PO; -MONT10TA35 PO; -PHEN-1877 PO; -PRED10TA6 PO; -PRON INH; -SULF-59 PO
[2021-09-17 18:59] VITALS: BP 156/82
--- NOTE | 2021-09-17 19:08 | NUR ---
PT AMB TO BED 11.
[2021-09-17 20:07] LABS: BASOPHILS # (AUTO) 0.1 K/uL (0.00-0.22); EOSINOPHILS # (AUTO) 0.2 K/uL (0-0.4); EOSINOPHILS % (AUTO) 2.3 % (0.0-4.0); HEMATOCRIT 37.4 % (36-48); HEMOGLOBIN 12.3 g/dL (12.0-16.0); LYMPHOCYTES # (AUTO) 2.3 K/uL (2.5-16.5); LYMPHOCYTES % (AUTO) 28.6 % (20.5-51.1); MEAN CORPUSCULAR HEMOGLOBIN 27 pg (27-31); MEAN CORPUSCULAR HGB CONC 33 g/dL (33-37); MONOCYTES # (AUTO) 0.6 K/uL (0.8-1.0); NEUTROPHILS # (AUTO) 4.9 K/uL (1.8-7.7); NEUTROPHILS % (AUTO) 61.1 % (42.2-75.2); PLATELET COUNT (AUTO) 212 K/uL (140-450); RED CELL DISTRIBUTION WIDTH 14.2 % (11.6-13.7)
[2021-09-17 20:26] LABS: ALBUMIN 2.6 g/dL (3.4-5.0); ANION GAP 10.5 (8-16); CARBON DIOXIDE 25.4 mmol/L (21-32); CREATININE 0.4 mg/dL (0.6-1.3); POTASSIUM 3.9 mmol/L (3.5-5.1); TOTAL BILIRUBIN 0.3 mg/dL (0.0-1.0)
[2021-09-17] MEDS ORDERED: PRON INH (21:20)
[2021-09-17] MEDS ORDERED: HYDR-2849 PO (21:20)
[2021-09-17] MEDS ORDERED: ALBU0.0912 INH (21:20)
--- NOTE | 2021-09-17 21:20 | NUR ---
ER MD AT BEDSIDE FOR EXAM
--- NOTE | 2021-09-17 21:36 | NUR ---
PT AMBULATE TO RESTROOM
[2021-09-17 22:06] VITALS: BP 130/75
--- NOTE | 2021-09-17 22:06 | NUR ---
Patient discharged with v/s stable. Written and verbal after care instructions given and explained. Patient alert, oriented and verbalized understanding of instructions. Ambulatory with steady gait. All questions addressed prior to discharge. ID band removed. Patient advised to follow up with PMD. Rx of ALBUTEROL SULFATE INHALER, LISINOPRIL, ALBUTEROL SULFATE NEB given. Patient educated on indication of medication including possible reaction and side effects. Opportunity to ask questions provided and answered.
== END 2021-09-17 22:06 | disposition home or self-care (01) ==
LOC: MED 18:53
DX: R51.9 Headache, unspecified (principal); I10 Essential (primary) hypertension; R60.9 Edema, unspecified; J45.909 Unspecified asthma, uncomplicated
CPT/HCPCS: 36415; 80053; 83880; 85025; 99283

== ENCOUNTER 2021-10-16 21:55 | Emergency (ER) | payer MEDICAID ==
[~2021-10-16] VITALS: Ht 160 cm; Wt 83.9 kg
[~2021-10-16 21:55] MED LIST changes: +HYDR-2849 PO; +PRON INH
[2021-10-16 22:01] VITALS: BP 109/67
--- NOTE | 2021-10-16 22:17 | NUR ---
DR. Cerna examining patient.
[2021-10-16] MEDS ORDERED: methylPREDNISolone SS 125 MG/2 ML VIAL IVP ONE (22:20)
[2021-10-16] MEDS ORDERED: ALBUTEROL 0.083% 2.5 MG/3 ML NEBU INH ONE (22:20)
[2021-10-16] MEDS ORDERED: MAG SULF 2000 MG/WATER PREMIX 50 ML IV ONE (22:20)
--- NOTE | 2021-10-16 22:22 | NUR ---
Patient ambulated to bed 4.
[2021-10-16] MEDS ORDERED: IPRATROPIUM 0.02% 0.5 MG/2.5 ML NEBU INH ONE (22:55)
--- NOTE | 2021-10-16 23:30 | NUR ---
C/O Asthma exacerabation x today. Patient reported, had asthma attack used IH, no relief. PMHx: HTN, Asthma
[2021-10-16] MEDS ORDERED: LEVALBUTEROL 1.25 MG/0.5 ML NEBU INH ONE (23:50)
[2021-10-17] MEDS ORDERED: PRON INH (01:26)
[2021-10-17] MEDS ORDERED: PRED20TA5 PO (01:26)
[2021-10-17] MEDS ORDERED: ALBU0.0912 IH (01:26)
[2021-10-17 01:50] VITALS: BP 104/56
--- NOTE | 2021-10-17 01:50 | NUR ---
Patient discharged with v/s stable. Written and verbal after care instructions given and explained. Patient alert, oriented and verbalized understanding of instructions. Ambulatory with steady gait. All questions addressed prior to discharge. ID band removed. Patient advised to follow up with PMD. Rx of PROVENTIL HFA MDI, DELTASONE, PROVENTIL 0.083% NEB given. Patient educated on indication of medication including possible reaction and side effects. Opportunity to ask questions provided and answered.
== END 2021-10-17 01:50 | disposition home or self-care (01) ==
LOC: MED 21:55
DX: J45.901 Unspecified asthma with (acute) exacerbation (principal); Z20.822 Contact with and (suspected) exposure to COVID-19; I10 Essential (primary) hypertension
CPT/HCPCS: 71045; 87426; 94640; 96365; 96366; 96375; 99285; J2930; J3475; J7612; J7613; J7644; Q0092; 99284

== ENCOUNTER 2022-01-22 20:03 | Emergency (ER) | payer MEDICAID ==
[~2022-01-22] VITALS: Ht 160 cm; Wt 83.9 kg
[~2022-01-22 20:03] MED LIST changes: -ALBU-71 NEB; -ALBU0.0912 INH; -BUDE1AER IH; -CEPH500C16 PO
[2022-01-22 20:08] VITALS: BP 158/84
--- NOTE | 2022-01-22 20:23 | NUR ---
TO LOBBY FOLLOWING TRIAGE
[2022-01-22] MEDS ORDERED: methylPREDNISolone SS 125 MG/2 ML VIAL IM ONE (22:40)
[2022-01-22 23:10] LABS: BASOPHILS % (AUTO) 0.3 % (0.0-2.0); EOSINOPHILS # (AUTO) 0.5 K/uL (0-0.4); EOSINOPHILS % (AUTO) 4.3 % (0.0-4.0); HEMATOCRIT 41.4 % (36-48); HEMOGLOBIN 13.3 g/dL (12.0-16.0); LYMPHOCYTES # (AUTO) 2.3 K/uL (2.5-16.5); LYMPHOCYTES % (AUTO) 20.3 % (20.5-51.1); MEAN CORPUSCULAR HEMOGLOBIN 26 pg (27-31); MEAN CORPUSCULAR HGB CONC 32 g/dL (33-37); MEAN CORPUSCULAR VOLUME 82.2 fL (80-94); MONOCYTES # (AUTO) 0.8 K/uL (0.8-1.0); MONOCYTES % (AUTO) 7.2 % (1.7-9.3); NEUTROPHILS # (AUTO) 7.8 K/uL (1.8-7.7); NEUTROPHILS % (AUTO) 67.9 % (42.2-75.2); PLATELET COUNT (AUTO) 273 K/uL (140-450); RED BLOOD CELL COUNT(AUTO) 5.04 MIL/uL (4.20-5.40); RED CELL DISTRIBUTION WIDTH 14.7 % (11.6-13.7); WHITE BLOOD COUNT (AUTO) 11.5 K/uL (4.8-10.8)
[2022-01-22 23:51] LABS: ALBUMIN 3.2 g/dL (3.4-5.0); ANION GAP 13.2 (8-16); CARBON DIOXIDE 26.6 mmol/L (21-32); CREATININE 0.5 mg/dL (0.6-1.3); POTASSIUM 3.8 mmol/L (3.5-5.1); TOTAL BILIRUBIN 0.3 mg/dL (0.0-1.0)
[2022-01-23] MEDS ORDERED: NEBU1KIT2 MC (00:13)
[2022-01-23] MEDS ORDERED: PRON INH (00:13)
[2022-01-23] MEDS ORDERED: PRED20TA5 PO (00:13)
[2022-01-23] MEDS ORDERED: methylPREDNISolone SS 125 MG/2 ML VIAL ONE (00:38)
[2022-01-23] MEDS: ALBUTEROL SULFATE/IPRATROPIU 3 ML SOL IH ONE ×2 (00:42→01:07)
--- NOTE | 2022-01-23 00:57 | NUR ---
Dr. Granger explained results and treatment plans.
[2022-01-23] MEDS ORDERED: ALBUTEROL SULFATE/IPRATROPIU 3 ML SOL IH ONE (01:02)
--- NOTE | 2022-01-23 01:05 | NUR ---
Patient taken to chair A.
--- NOTE | 2022-01-23 01:06 | NUR ---
RT at chair for breathing treatment.
[2022-01-23 01:35] VITALS: BP 145/84
--- NOTE | 2022-01-23 01:35 | NUR ---
Patient discharged with v/s stable. Written and verbal after care instructions given and explained. Patient alert, oriented and verbalized understanding of instructions. Ambulatory with steady gait. All questions addressed prior to discharge. ID band removed. Patient advised to follow up with PMD. Rx of Prednisone, Albuterol Sulfate and Nebulizer given. Patient educated on indication of medication including possible reaction and side effects. Opportunity to ask questions provided and answered.
== END 2022-01-23 01:35 | disposition home or self-care (01) ==
LOC: MED 20:03
DX: J45.901 Unspecified asthma with (acute) exacerbation (principal)
CPT/HCPCS: 36415; 80053; 84702; 85025; 94640; 96372; 99283; J2930

== ENCOUNTER 2022-06-07 09:45 | Emergency (ER) | payer MEDICAID ==
[~2022-06-07] VITALS: Ht 154.9 cm; Wt 81.6 kg
[~2022-06-07 09:45] MED LIST changes: +NEBU1KIT2 MC
[2022-06-07 09:57] VITALS: BP 124/74
[2022-06-07] MEDS ORDERED: IPRATROPIUM 0.02% 0.5 MG/2.5 ML NEBU INH ONE (10:00)
[2022-06-07] MEDS ORDERED: ALBUTEROL 0.083% 2.5 MG/3 ML NEBU INH ONE ×2 (10:00→10:50)
[2022-06-07] MEDS ORDERED: predniSONE 20 MG TAB PO ONE (10:00)
--- NOTE | 2022-06-07 10:07 | NUR ---
42 y/o female, c/o sob, difficulty breathing, cough for 3 days, states worsened this morning. pt has audible wheezing with inspiratory and expiratory bl lungs. a&ox4, ambulates with cane, knee immobilizer on right side, ir[place]i speaking. denies pain, fever, chills, n/v/d, or anyone sick with flu/cold symptoms at home. pt states she is currently not on any asthma medication. pmh: asthma, htn nka med: denies
[2022-06-07] MEDS ORDERED: ALBUTEROL HFA MDI 90 MCG/ACTUATION 8 GM INH ONE (11:25)
--- NOTE | 2022-06-07 11:31 | NUR ---
INCREASED WORK OF BREATHING AND AND CONTINUOUS COUGHING WITH [facility]. CHANGED TO MDI WITH SPACER. PT STATES CHEAT TIGHTNESS AND MINOR RELIEF.
--- NOTE | 2022-06-07 11:49 | NUR ---
PT AMB TO BED 4 WITH WALKER
--- NOTE | 2022-06-07 12:00 | NUR ---
XRAY AT BEDSIDE
[2022-06-07] MEDS ORDERED: PRED20TA5 PO (12:43)
[2022-06-07] MEDS ORDERED: ALBU0.0912 IH (12:43)
[2022-06-07] MEDS ORDERED: PRON INH (12:43)
[2022-06-07 12:48] VITALS: BP 121/86
--- NOTE | 2022-06-07 12:49 | NUR ---
Patient discharged with v/s stable. Written and verbal after care instructions given and explained. Patient alert, oriented and verbalized understanding of instructions. Ambulatory with steady gait. All questions addressed prior to discharge. ID band removed. Patient advised to follow up with PMD. Rx of PROVENTIL, DELTASOLNE AND PROVENTIL HFA given. Patient educated on indication of medication including possible reaction and side effects. Opportunity to ask questions provided and answered.
== END 2022-06-07 12:48 | disposition home or self-care (01) ==
LOC: MED 09:45
DX: J45.901 Unspecified asthma with (acute) exacerbation (principal); I10 Essential (primary) hypertension; Z79.899 Other long term (current) drug therapy; Z90.49 Acquired absence of other specified parts of digestive tract
CPT/HCPCS: 71045; 81025; 94664; 99285; J7512; J7613; J7644; 94640

== ENCOUNTER 2022-11-01 09:39 | Emergency (ER) | payer MEDICAID ==
[~2022-11-01] VITALS: Ht 160 cm; Wt 80.3 kg
[2022-11-01 09:46] VITALS: BP 111/79; PULSE 107; RESP 24; TEMP 99.1; O2SAT 97
--- NOTE | 2022-11-01 09:51 | NUR ---
AMB. TO BED 5
--- NOTE | 2022-11-01 09:54 | NUR ---
MD MEHTA AT BEDSIDE FOR EVALUATION
[2022-11-01] MEDS ORDERED: ALBUTEROL 0.083% 2.5 MG/3 ML NEBU INH ONE ×3 (09:55→11:35)
[2022-11-01] MEDS ORDERED: IPRATROPIUM 0.02% 0.5 MG/2.5 ML NEBU INH ONE ×2 (09:55→09:57)
--- NOTE | 2022-11-01 09:57 | NUR ---
rt at bedside
[2022-11-01] MEDS ORDERED: predniSONE 20 MG TAB PO ONE (10:00)
[2022-11-01 10:03] VITALS: PULSE 114; RESP 18; O2SAT 97; O2SAT 98
--- NOTE | 2022-11-01 10:03 | NUR ---
42YO FEMALE PT C/O SOB AND PRESSURED CHEST PAIN X4DAYS. REPORTS CONSTANT SUDDEN ONSET W/ PAIN AT MOST ON COUGH. DRY COUGH PRESENT. MICHELLE WHEEZING NOTED. DENIES N/V/D, FEVR OR CHILLS. PT AAOX4, ON MOONER. HOB POSITIONED PER COMFORT HX: ASTHMA, HLD NKA
[2022-11-01 11:40] VITALS: PULSE 89; RESP 18; O2SAT 94
[2022-11-01 12:10] VITALS: BP 113/81; PULSE 87; RESP 18; TEMP 98; O2SAT 95
[2022-11-01] MEDS ORDERED: ALBU0.0912 IH (12:28)
[2022-11-01] MEDS ORDERED: PRED20TA5 PO (12:28)
[2022-11-01] MEDS ORDERED: PROM118S5 PO (12:28)
--- NOTE | 2022-11-01 12:34 | NUR ---
Patient discharged with v/s stable. Written and verbal after care instructions FOR ASTHMA given and explained. Patient alert, oriented and verbalized understanding of instructions. Ambulatory with steady gait. All questions addressed prior to discharge. ID band removed. Patient advised to follow up with PMD. Rx of DELTASONE,PROMETHAZINE AND ALBUTEROL SULFATE given. Opportunity to ask questions provided and answered. NOTE FOR PHYSICAL THERAPY PROVIDED
--- NOTE | 2022-11-01 12:47 | NUR ---
The patient's care was reviewed and supervised by [facility], RN.
== END 2022-11-01 12:34 | disposition home or self-care (01) ==
LOC: MED 09:39
DX: J45.901 Unspecified asthma with (acute) exacerbation (principal); M25.511 Pain in right shoulder; I10 Essential (primary) hypertension; E78.5 Hyperlipidemia, unspecified; Z90.49 Acquired absence of other specified parts of digestive tract; Z79.899 Other long term (current) drug therapy
CPT/HCPCS: 94640; 94760; 99283; J7512; J7613; J7644

== ENCOUNTER 2023-08-24 17:28 | Emergency (ER) | payer MEDICAID, OTHER ==
[~2023-08-24] VITALS: Ht 152.4 cm; Wt 85.7 kg
[~2023-08-24 17:28] MED LIST changes: +PROM118S5 PO
[2023-08-24 17:33] VITALS: BP 134/96; PULSE 88; RESP 20; TEMP 97.3; O2SAT 98
[2023-08-24] MEDS: DEXAMETHASONE 10 MG/ML VIAL IM ONE (18:28)
[2023-08-24 19:40] VITALS: O2SAT 99
[2023-08-24] MEDS ORDERED: PRED20TA5 PO (20:03)
[2023-08-24] MEDS ORDERED: ALBU0.0912 IH (20:03)
[2023-08-24] MEDS ORDERED: ALBUTEROL SULFATE/IPRATROPIU 3 ML SOL IH ONE (20:22)
[2023-08-24 20:27] VITALS: PULSE 86; RESP 18; O2SAT 98
[2023-08-24] MEDS: ALBUTEROL SULFATE/IPRATROPIU 3 ML SOL IH ONE ×2 (20:27→20:56)
[2023-08-24 20:59] VITALS: PULSE 76; RESP 18; O2SAT 98
[2023-08-24 23:32] VITALS: BP 120/71; PULSE 79; RESP 19; O2SAT 97
== END 2023-08-24 23:31 | disposition home or self-care (01) ==
LOC: MED 17:28
DX: J45.901 Unspecified asthma with (acute) exacerbation (principal); I10 Essential (primary) hypertension; Z79.899 Other long term (current) drug therapy
CPT/HCPCS: 71045; 94640; 96372; 99285; J1100

== ENCOUNTER 2023-10-08 11:44 | Emergency (ER) | payer OTHER ==
[~2023-10-08] VITALS: Ht 160 cm; Wt 85.7 kg
[2023-10-08 11:50] VITALS: BP 156/89; PULSE 61; RESP 17; TEMP 98; O2SAT 98
[2023-10-08 13:07] LABS: HEMATOCRIT 38.6 % (36-48); HEMOGLOBIN 12.8 g/dL (12.0-16.0); MEAN CORPUSCULAR HEMOGLOBIN 28 pg (27-31); MEAN CORPUSCULAR HGB CONC 33 g/dL (33-37); MEAN CORPUSCULAR VOLUME 83.2 fL (80-94); PLATELET COUNT (AUTO) 196 K/uL (140-450); RED BLOOD CELL COUNT(AUTO) 4.64 MIL/uL (4.20-5.40); RED CELL DISTRIBUTION WIDTH 15.6 % (11.6-13.7); WHITE BLOOD COUNT (AUTO) 9.2 K/uL (4.8-10.8)
[2023-10-08 13:25] LABS: ANION GAP 12.7 (8-16); CALCIUM 8.1 mg/dL (8.5-10.1); CARBON DIOXIDE 26.1 mmol/L (21-32); CREATININE 0.5 mg/dL (0.6-1.3); POTASSIUM 3.8 mmol/L (3.5-5.1)
[2023-10-08 13:31] VITALS: BP 166/82; PULSE 68; RESP 20; TEMP 98.7; O2SAT 98
[2023-10-08 13:35] LABS: ALANINE AMINOTRANSFERASE 25 U/L (12-78); ALBUMIN 2.9 g/dL (3.4-5.0); ALKALINE PHOSPHATASE 62 U/L (50-136); ASPARTATE AMINOTRANSFERASE 10 U/L (15-37); BILIRUBIN,DIRECT 0.1 mg/dL (0.0-0.3); LIPASE 19 U/L (16-77); TOTAL BILIRUBIN 0.3 mg/dL (0.0-1.0); TOTAL PROTEIN, SERUM 6.4 g/dL (6.4-8.2)
[2023-10-08] MEDS: FAMOTIDINE 20 MG/2 ML VIAL IVP ONE (13:35)
[2023-10-08 13:37] LABS: BASOPHILS % (MANUAL) 0 % (0-2); BLASTS, MANUAL % 0 % (0-0); EOSINOPHILS % (MANUAL) 1 % (0-4); LYMPHOCYTES % (MANUAL) 22 % (20-46); METAMYELOCYTES % 0 % (0-0); MONOCYTES % (MANUAL) 4 % (5-12); MYELOCYTES % 0 % (0-0); OTHER CELLS,MANUAL % 0 (0-0); PLASMA CELLS 0; PLATELET ESTIMATE ADEQUATE; PROMYELOCYTES % 0 % (0-0); SMUDGE CELLS 0
[2023-10-08] MEDS: KETOROLAC 30 MG/ML VIAL IVP ONE (13:39)
[2023-10-08] MEDS ORDERED: FAMO-92 PO (14:20)
== END 2023-10-08 14:33 | disposition home or self-care (01) ==
LOC: MED 11:44
DX: R07.9 Chest pain, unspecified (principal); R10.13 Epigastric pain; R10.12 Left upper quadrant pain; M54.6 Pain in thoracic spine; R11.0 Nausea; E78.5 Hyperlipidemia, unspecified; J45.909 Unspecified asthma, uncomplicated; I10 Essential (primary) hypertension; Z90.49 Acquired absence of other specified parts of digestive tract; Z79.1 Long term (current) use of non-steroidal anti-inflammatories (NSAID); Z79.2 Long term (current) use of antibiotics; Z79.899 Other long term (current) drug therapy
CPT/HCPCS: 36415; 71045; 80048; 80076; 83690; 83880; 84484; 85025; 96374; 96375; 99284; J1885; J3490